=== PATIENT | female | born 1960 | race Caucasian/White ===

== ENCOUNTER 2017-01-07 06:09 | Emergency (ER) | payer OTHER, SELFPAY ==
[2017-01-07] MEDS ORDERED: Sodium Chloride 0.9% 1000 ML 1,000 ML ONE ×2 (06:28→08:29)
[2017-01-07] MEDS ORDERED: Phenergan 25 MG INJ IV ONE (06:34)
[2017-01-07] MEDS ORDERED: Sodium Chloride 0.9% 1000 ML 1,000 ML IV STA ×2 (06:34→08:25)
[2017-01-07] MEDS ORDERED: Hydromorphone 1 mg/ml Ampule IV ONE (06:34)
[2017-01-07] MEDS ORDERED: Hydromorphone 1 mg/ml Ampule ONE (06:38)
[2017-01-07] MEDS ORDERED: Phenergan 25 MG INJ ONE (06:38)
--- NOTE | 2017-01-07 06:41 | ERPHSYRPT ---
- History of Present Illness Historian: patient Exam Limitations: no limitations Hx Tetanus, Diphtheria Vaccination/Date Given: Yes Hx Influenza Vaccination/Date Given: No Hx Pneumococcal Vaccination/Date Given: No <DENY CEVALLOS - Last Filed: 01/07/17 06:49> <KRYSTAL NOEL - Last Filed: 01/07/17 10:00> - History of Present Illness Time Seen by Provider: 01/07/17 06:35 Physician History: FOR THE PAST 14 HOURS PT HAS HAD NAUSEA, VOMITING WITHOUT BLOOD, DIARRHEA WITHOUT BLOOD AND CHILLS; DENIES CHEST PAIN, SHORTNESS OF AIR, RASH. (DENY CEVALLOS) Allergies/Adverse Reactions: No Known Drug Allergies Allergy (Verified 01/07/17 07:05) Home Medications: Glyburide 4 mg PO DAILY 08/22/12 [History] Soma 350 mg PO TID 08/22/12 [History] Albuterol Sulfate [Ventolin Hfa] 18 gm IH DAILY PRN 10/22/14 [History] Levothyroxine Sodium 50 Mcg [Synthroid 50 Mcg] 1 tab DAILY 01/07/17 [ History] Simvastatin 0 mg HS 01/07/17 [History] - Review of Systems Constitutional: Chills Abdominal/Gastrointestinal: Nausea, Vomiting, Diarrhea All Other Systems: Reviewed and Negative <DENY CEVALLOS - Last Filed: 01/07/17 06:49> - Past Medical History Pertinent Past Medical History: Yes Neurological History: No Pertinent History ENT History: No Pertinent History Cardiac History: No Pertinent History Respiratory History: COPD Endocrine Medical History: Diabetes Type II, Hypothyroidism Musculoskeletal History: Osteoarthritis GI Medical History: Gallbladder Disease History: No Pertinent History Psycho-Social History: No Pertinent History Female Reproductive Disorders: Menstrual Problems 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 - Past Surgical History Past Surgical History: Yes Neuro Surgical History: No Pertinent History Cardiac: No Pertinent History Respiratory: No Pertinent History Gastrointestinal: Cholecystectomy Genitourinary: No Pertinent History Musculoskeletal: No Pertinent History Female Surgical History: Lumpectomy, Tubal Ligation Other Surgical History: thermal ablation, left knee scope - Social History Smoking Status: Never smoker Exposure to second hand smoke: No Drug Use: none Patient Lives Alone: No - Female History Hx Now: No <DENY CEVALLOS - Last Filed: 01/07/17 06:49> - Physical Exam General Appearance: alert Eye Exam: PERRL/EOMI Ears, Nose, Throat Exam: TMs normal, dry mucous membranes Neck Exam: normal inspection Respiratory Exam: lungs clear Cardiovascular Exam: normal heart sounds Gastrointestinal/Abdomen Exam: soft, other (B.S. MILDLY HYPERACTIVE AND NORMOTONIC), No tenderness Back Exam: normal range of motion Extremity Exam: normal inspection, No pedal edema Neurologic Exam: alert, cooperative Skin Exam: warm, dry <DENY CEVALLOS EDDAVID - Last Filed: 01/07/17 06:49> - Course Nursing assessment & vital signs reviewed: Yes <DENY CEVALLOS EDDAVID - Last Filed: 01/07/17 06:49> <DENY CEVALLOS HALLIE - Last Filed: 01/07/17 06:49> - Progress Progress: improved Counseled pt/family regarding: lab results, diagnosis, need for follow-up <KRYSTAL NOEL - Last Filed: 01/07/17 10:00> - Progress Progress Note: 01/07/17 08:40 PATIENT HYDRATED ADDITIONAL FLUID BOLUS NORMAL SALINE 1 LITER/HR (KRYSTAL NOEL) <DENY CEVALLOS EDDAVID - Last Filed: 01/07/17 06:49> - Departure Time of Disposition: 09:55 Departure Disposition: Home Critical Care Time: No <KRYSTAL NOEL - Last Filed: 01/07/17 10:00> - Departure Clinical Impression: ACUTE EMESIS AND DIARRHEA, DEHYDRATION Condition: Stable Referrals: ROWAN BYNUM, PURCHASING ASSOCIATE [Primary Care Provider] - Additional Instructions: BEGIN A CLEAR LIQUID DIET FOR 24 HOURS, THEN ADVANCE DIET TO FULL LIQUIDS INCLUDING JUICES, SOUPS, CRACKERS, AND CHEESES. THEN ADVANCE DIET TOLERATED. ZOFRAN 4MG EVERY 4 HOURS FOR NAUSEA AND PHENERGAN 25MG SUPPOSITORY EVERY 4 HOURS NEEDED FOR NAUSEA. CONSULT YOUR FAMILY PHYSICIAN FOR EVALUATION IN 1 WEEK. RETURN TO EMERGENCY FOR PERSISTENT EMESIS OR DIARRHEA. Prescriptions: Ondansetron [Zofran Odt] 4 mg PO Q4H PRN PRN #8 tab.rapdis PRN Reason: Nausea Promethazine HCl 25 mg Supp [Phenergan 25 mg Supp] 25 mg NE Q4H PRN PRN # 10 supp.rect PRN Reason: Nausea
[2017-01-07 06:52] LABS: BASOPHIL % 0.2 % (0.0-0.4); Eosinophil % 1.9 % (0.00-5.0); Mean Cell Volume 83.1 fl (78-100); Mean Corpuscular Hemoglobin 26.8 pg (26-32); Mean Platelet Volume 10.4 fl (6-9.5); Monocytes % 5.9 % (0.0-12.0); Platelet Count 293 K/mm3 (150-450); Red Blood Count 5.08 M/mm3 (4.1-5.4); Red Cell Distribution Width 15.4 % (11.5-14.0); White Blood Count 8.3 K/mm3 (4.0-10.5)
[2017-01-07 07:05] LABS: ALBUMIN 4.2 g/dL (3.4-5.0); ALKALINE PHOSPHATASE 72 U/L (46-116); ANION GAP 17.4 MEQ/L (5-15); BILIRUBIN,TOTAL 0.3 mg/dL (0.2-1.0); BLOOD UREA NITROGEN 20 mg/dL (9-20); CHLORIDE 101 mEq/L (98-107); Carbon Dioxide 22.8 mEq/L (21-32); Glucose 177 MG/DL (70-110); LIPASE 179 U/L (73-393); MAGNESIUM 1.8 mg/dL (1.8-2.4); SGOT/AST 20 U/L (15-37); SGPT/ALT 27 U/L (12-78); SODIUM 137 mEq/L (136-145); Total Protein 7.7 gm/dL (6.4-8.2)
[2017-01-07] MEDS ORDERED: Zofran 4 MG/2 ML VIAL IV ONE (07:06)
[2017-01-07] MEDS ORDERED: Zofran 4 MG/2 ML VIAL ONE (07:12)
[2017-01-07 07:24] LABS: COMPLETE URINE MICROSCOPIC? YES; Collection Type CLEAN CATCH; Ph 7.5 (5-6)
[2017-01-07 07:42] LABS: Bacteria MODERATE /HPF (NEGATIVE); Epithelial Cells FEW /HPF (FEW); Mucus SLIGHT /HPF (NEGATIVE)
[2017-01-07 09:21] VITALS: BP 104/62; PULSE 77; O2SAT 93
== END 2017-01-07 09:57 | disposition home or self-care (01) ==
LOC: ED 06:09
DX: R11.2 Nausea with vomiting, unspecified (principal); R19.7 Diarrhea, unspecified; E86.0 Dehydration; E11.9 Type 2 diabetes mellitus without complications; E03.9 Hypothyroidism, unspecified
CPT/HCPCS: 36000; 36415; 80053; 81000; 82150; 83690; 83735; 85025; 96365; 96366; 96374; 96375; 99284; J1170; J2405; J2550

== ENCOUNTER 2017-01-17 14:54 | Emergency (ER) | payer OTHER, SELFPAY ==
[2017-01-17] MEDS ORDERED: TORAdol 30 mg Injection IM ONE (15:49)
--- NOTE | 2017-01-17 15:55 | ERPHSYRPT ---
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 Triage Nursing Assessment: PT ALERT WARM AND DRY RESP EASY NON LABORED BRUISING NOTED TO LEFT LOWER LEG GOOD PULSES GOOD CAP REFILL NOTED. Physician History: This is a 56-year-old white female she arrives with complaint of pain in her left knee left anterior leg after falling about half an hour prior to arrival patient states she tripped over a tree root and landed on her left knee and left anterior leg she complains of pain in her left knee and leg. She denies any other complaints. Past medical history includes diabetes, hypothyroidism, COPD, gallbladder problems, osteoarthritis, calcium deposits in her lungs. Past surgical history includes lumpectomy, tubal ligation, cervical ablation, left knee scope. Occurred: just prior to arrival Reason for Fall: tripped Injuries/Pain Location: lower extremity (left knee and left leg) Loss of Consciousness: no loss of consciousness Quality: aching Severity of Pain-Max: moderate Severity of Pain-Current: moderate Modifying Factors: Improves With: nothing Associated Symptoms (Fall): extremity injury (left knee and left leg pain), No abdominal pain, No back pain, No confusion, No chest pain, No dizziness, No headache, No lightheadedness, No muscle spasms, No nausea, No neck pain, No ringing in ears, No seizures, No shortness of breath, No slurred speech, No vomiting, No vision changes Allergies/Adverse Reactions: No Known Drug Allergies Allergy (Verified 01/07/17 07:05) Home Medications: Alogliptin Benzoate [Alogliptin] 12.5 mg PO 01/17/17 [History] Carisoprodol 350 mg [Soma 350 mg] 01/17/17 [History] Levothyroxine Sodium 50 Mcg [Synthroid 50 Mcg] 50 mcg 01/17/17 [History] Naproxen 01/17/17 [History] Pioglitazone 30 mg [Actos 30 MG] 30 mg PO 01/17/17 [History] Promethazine HCl 01/17/17 [History] Hx Tetanus, Diphtheria Vaccination/Date Given: Yes Hx Influenza Vaccination/Date Given: No Hx Pneumococcal Vaccination/Date Given: No Immunizations Up to Date: Yes - Review of Systems Constitutional: No Fever, No Chills Eyes: No Symptoms Ears, Nose, & Throat: No Symptoms Respiratory: No Cough, No Dyspnea Cardiac: No Chest Pain, No Edema, No Syncope Abdominal/Gastrointestinal: No Abdominal Pain, No Nausea, No Vomiting, No Diarrhea Genitourinary Symptoms: No Dysuria Musculoskeletal: Other (left knee and left leg pain and swelling) Skin: No Rash Neurological: No Dizziness, No Focal Weakness, No Sensory Changes Psychological: No Symptoms Endocrine: No Symptoms All Other Systems: Reviewed and Negative - Past Medical History Pertinent Past Medical History: Yes Neurological History: No Pertinent History ENT History: No Pertinent History Cardiac History: No Pertinent History Respiratory History: COPD Endocrine Medical History: Diabetes Type II, Hypothyroidism Musculoskeletal History: Osteoarthritis GI Medical History: Gallbladder Disease History: No Pertinent History Psycho-Social History: No Pertinent History Female Reproductive Disorders: Menstrual Problems 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 - Past Surgical History Past Surgical History: Yes Neuro Surgical History: No Pertinent History Cardiac: No Pertinent History Respiratory: No Pertinent History Gastrointestinal: Cholecystectomy Genitourinary: No Pertinent History Musculoskeletal: No Pertinent History Female Surgical History: Lumpectomy, Tubal Ligation Other Surgical History: thermal ablation, left knee scope - Social History Smoking Status: Never smoker Exposure to second hand smoke: No Drug Use: none Patient Lives Alone: No - Female History Hx Last Menstrual Period: ABLASION Hx Now: No - Nursing Vital Signs Nursing Vital Signs: Initial Vital Signs Temperature 98.1 F Temperature Source Oral Pulse Rate 100 Respiratory Rate 18 Blood Pressure [Right Arm] 142/81 Pain Intensity 6 - Louise Coma Score Best Eye Response ([place]): (4) open spontaneously Best Verbal Response ([place]): (5) oriented Best Motor Response ([place]): (6) obeys commands Louise Total: 15 - Physical Exam General Appearance: moderate distress, other (well-developed obese white female pleasant and cooperative to examination) Head Injury: no evidence of injury Eye Exam: PERRL/EOMI ENT Exam: airway nml Neck Exam: normal inspection, No tenderness Respiratory/Chest Exam: normal breath sounds, No chest tenderness, No respiratory distress Cardiovascular Exam: normal heart sounds, regular rate/rhythm Gastrointestinal Exam: soft, No tenderness, No distention, No guarding, No ecchymosis Back Exam: normal inspection, No vertebral tenderness Extremity Exam: other (left knee tender with palpation anteriorly decreased range of motion left knee secondary to pain, left anterior leg with moderate edema anteriorly tender with palpation) Peripheral Pulses: dorsalis-pedis (R): 2+, dorsalis-pedis (L): 2+ Neurologic Exam: alert, oriented x 3, cooperative, sensation nml, No motor deficits Skin Exam: normal color, warm, dry SpO2 Interpretation: normal (98%) SpO2: 98 Oxygen Delivery: Room Air - Radiology Exams Left Knee X-ray Interpretation: Interpreted by me, Negative, No Fracture, No Subluxation Left Lower Leg X-ray Interpretation: Interpreted by me, Negative, No Fracture, No Subluxation Ordered Tests: Active Orders 24 hr Category Date Time Status [place] Bandage Application [facility] STAT Care 01/17/17 16:41 Ordered Crutches STAT Care 01/17/17 16:41 Ordered Immobilizer STAT Care 01/17/17 16:41 Ordered Wound Care STAT Care 01/17/17 16:41 Ordered KNEE (MIN 4 VIEW) Stat Exams 01/17/17 15:49 Taken LOWER LEG Stat Exams 01/17/17 15:50 Taken Medication Summary Discontinued Medications Generic Name Dose Route Start Last Admin Trade Name Marielle PRN Reason Stop Dose Admin Ketorolac Tromethamine 60 mg 01/17/17 15:49 01/17/17 16:27 Toradol 30 Mg Injection IM 01/17/17 15:50 60 mg STAT ONE Administration Ketorolac Tromethamine Confirm 01/17/17 16:25 Toradol 30 Mg Injection Administered 01/17/17 16:26 Dose 60 mg .ROUTE .[employer]-MED ONE - Progress Progress: improved Progress Note: 01/17/17 16:42 X-ray patient's left knee negative fracture negative dislocation. X-ray patient's left lower leg negative fracture negative dislocation. Left knee is stable to anterior drawer, posterior drawer, medial collateral ligament stress, lateral collateral ligament stress. Left DP PT popliteal pulses all 2 over 4. Sensation intact to all toes good capillary refill to all toes. Will have nurse clean abrasion left anterior leg apply bacitracin dressing and dressing [place] wrap left knee immobilizer place patient on crutches. Home with [place] for pain. - Departure Time of Disposition: 16:43 Departure Disposition: Home Clinical Impression: Accidental fall Qualifiers: Encounter type: initial encounter Qualified Code(s): W19.XXXA - Unspecified fall, initial encounter Contusion of left knee Qualifiers: Encounter type: initial encounter Qualified Code(s): S80.02XA - Contusion of left knee, initial encounter Contusion of left leg Qualifiers: Encounter type: initial encounter Qualified Code(s): S80.12XA - Contusion of left lower leg, initial encounter Condition: Fair Critical Care Time: No Additional Instructions: Return home. Ice and elevate left leg, left knee 24-48 hours. Crutches weightbearing as tolerated. [place] 5/325 #15 one orally every 4-6 hours as needed for pain. Follow-up with your family doctor if symptoms are worse, no better in 48 hours, or persist longer than one week. Return for acute distress or for severe symptoms. Prescriptions: Hydrocodone Bit/Acetaminophen [[place] 5/325Mg] 1 tab PO Q4-6HPRN PRN #15 tablet PRN Reason: Pain
[2017-01-17] MEDS ORDERED: TORAdol 30 mg Injection ONE (16:25)
[2017-01-17] MEDS ORDERED: BACIGUENT PACKET TP ONE (16:41)
[2017-01-17] MEDS ORDERED: BACIGUENT PACKET ONE (16:48)
[2017-01-17 17:18] VITALS: BP 144/87; PULSE 90; O2SAT 96
--- NOTE | 2017-01-17 17:23 | XRAY ---
Indication: Pain and bruising following fall. Comparison: None 4 views of the left knee demonstrates proximal pretibial soft tissue swelling without fracture or dislocation. Minimal medial compartment joint space narrowing/spurring. No other bony, articular, or soft tissue abnormalities.
--- NOTE | 2017-01-17 17:26 | XRAY ---
Indication: Pain and bruising following fall. Comparison: None 2 views of the left lower leg demonstrates proximal anterior soft tissue swelling without fracture or dislocation. Incidental small plantar heel spur and tiny ossifications adjacent to the tip of lateral malleolus either degenerative versus old injury.
== END 2017-01-17 17:16 | disposition home or self-care (01) ==
LOC: ED 14:54
DX: S80.02XA Contusion of left knee, initial encounter (principal); S80.12XA Contusion of left lower leg, initial encounter; W01.0XXA Fall on same level from slipping, tripping and stumbling without subsequent striking against object, initial encounter
CPT/HCPCS: 73564; 73590; 99283; 99284; J1885; L1830; A9270-GY

== ENCOUNTER 2017-08-11 23:25 | Emergency (ER) | payer OTHER, SELFPAY ==
[2017-08-11] MEDS ORDERED: Zofran 4 MG/2 ML VIAL IV ONE (23:35)
[2017-08-11] MEDS ORDERED: TORAdol 30 mg Injection IV ONE (23:35)
[2017-08-11] MEDS ORDERED: Norflex 60 MG/2 ML IM ONE (23:35)
[2017-08-11] MEDS ORDERED: Sodium Chloride 0.9% 1000 ML 1,000 ML IV SCH (23:45)
[2017-08-11] MEDS ORDERED: Norflex 60 MG/2 ML ONE (23:50)
[2017-08-11] MEDS ORDERED: TORAdol 30 mg Injection ONE (23:50)
[2017-08-11] MEDS ORDERED: Sodium Chloride 0.9% 1000 ML 1,000 ML ONE (23:50)
[2017-08-11] MEDS ORDERED: Zofran 4 MG/2 ML VIAL ONE (23:50)
[2017-08-11 23:54] LABS: BASOPHIL % 0.8 % (0.0-0.4); Eosinophil % 3.3 % (0.00-5.0); Granulocytes % 59.6 % (36.0-66.0); Mean Cell Volume 84.2 fl (78-100); Mean Corpuscular Hemoglobin 27.1 pg (26-32); Mean Platelet Volume 10.5 fl (6-9.5); Monocytes % 7.3 % (0.0-12.0); Platelet Count 241 K/mm3 (150-450); Red Blood Count 4.68 M/mm3 (4.1-5.4); Red Cell Distribution Width 15.1 % (11.5-14.0); White Blood Count 6.4 K/mm3 (4.0-10.5)
--- NOTE | 2017-08-11 23:59 | ERPHSYRPT ---
- History of Present Illness Time Seen by Provider: 08/11/17 23:57 Source: patient, family Exam Limitations: no limitations Patient Subjective Stated Complaint: pt states that while at work tonight she bent down and felt her back catch. states that back has been hurting since. states pain is lower lt back and wraps around to lt groin and to lt buttock. Triage Nursing Assessment: pt awake and alert, answers questions approp. pt ambulatory with limping gait noted. respirations nonlabored with lungs cta. tenderness to light palpation noted to lt lower back. Physician History: pt states that while at work tonight she bent down and felt her back catch. states that back has been hurting since. states pain is lower lt back and wraps around to lt groin and to lt buttock. Timing/Duration: today Method of Injury: bending Quality: aching Back Pain Location: lumbar spine Back Pain Radiation: lower legs Severity of Pain-Max: moderate Severity of Pain-Current: severe Modifying Factors: Improves With: nothing Allergies/Adverse Reactions: No Known Drug Allergies Allergy (Verified 08/11/17 23:41) Home Medications: Alogliptin Benzoate [Alogliptin] 12.5 mg PO DAILY 01/17/17 [History] Carisoprodol 350 mg [Soma 350 mg] 1 tab PO Q8H PRN PRN 01/17/17 [History] Levothyroxine Sodium 50 Mcg [Synthroid 50 Mcg] 50 mcg DAILY 01/17/17 [ History] Naproxen 1 tab PO BID PRN 01/17/17 [History] Pioglitazone 30 mg [Actos 30 MG] 30 mg PO BID 01/17/17 [History] Promethazine HCl 1 tab PO Q8H PRN PRN 01/17/17 [History] Hx Tetanus, Diphtheria Vaccination/Date Given: Yes Hx Influenza Vaccination/Date Given: Yes (2016) Hx Pneumococcal Vaccination/Date Given: No Immunizations Up to Date: Yes - Review of Systems Constitutional: No Symptoms Genitourinary Symptoms: No Symptoms Musculoskeletal: Back Pain, Joint Pain Skin: No Symptoms Neurological: No Symptoms Psychological: No Symptoms - Past Medical History Pertinent Past Medical History: Yes Neurological History: No Pertinent History ENT History: No Pertinent History Cardiac History: No Pertinent History Respiratory History: Asthma, COPD Endocrine Medical History: Diabetes Type II, Hypothyroidism Musculoskeletal History: Arthritis, Osteoarthritis GI Medical History: Gallbladder Disease History: No Pertinent History Psycho-Social History: No Pertinent History Female Reproductive Disorders: Menstrual Problems 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 - Past Surgical History Past Surgical History: Yes Neuro Surgical History: No Pertinent History Cardiac: No Pertinent History Respiratory: No Pertinent History Gastrointestinal: Cholecystectomy Genitourinary: No Pertinent History Musculoskeletal: Orthopedic Surgery Female Surgical History: Lumpectomy, Tubal Ligation Other Surgical History: thermal ablation, left knee scope - Social History Smoking Status: Never smoker Exposure to second hand smoke: No Drug Use: none Patient Lives Alone: No - Female History Hx Now: No - Nursing Vital Signs Nursing Vital Signs: Initial Vital Signs Temperature 97.8 F 08/11/17 23:32 Respiratory Rate 18 08/11/17 23:32 Blood Pressure 148/88 08/11/17 23:32 Pain Scale Pain Intensity [] 9 Pain Intensity 9 - Physical Exam General Appearance: no apparent distress Eye Exam: PERRL/EOMI Ears, Nose, Throat Exam: normal ENT inspection Neck Exam: normal inspection Respiratory Exam: normal breath sounds Cardiovascular Exam: regular rate/rhythm Gastrointestinal Exam: soft Back Exam: decreased range of motion, muscle spasm, No CVA tenderness, No vertebral tenderness, No point tenderness Oxygen Delivery: Room Air - Radiology Exams L-Spine X-ray Interpretation: Reviewed by me, Negative, No Fracture Ordered Tests: Active Orders 24 hr Category Date Time Status LUMBAR LIMITED (2 OR 3 VIEWS) Stat Exams 08/11/17 23:36 Ordered CBC W DIFF Stat Lab 08/11/17 23:50 Completed CMP Stat Lab 08/11/17 23:50 Completed UA W/ MICROSCOPIC Stat Lab 08/11/17 00:12 Completed Medication Summary Generic Name Dose Route Start Last Admin Trade Name Freq PRN Reason Stop Dose Admin Sodium Chloride 1,000 mls @ 50 mls/hr 08/11/17 23:45 08/11/17 23:58 Sodium Chloride 0.9% 1000 Ml IV 09/10/17 23:44 50 mls/hr .Q20H VIC Administration Discontinued Medications Generic Name Dose Route Start Last Admin Trade Name Freq PRN Reason Stop Dose Admin Ketorolac Tromethamine 30 mg 08/11/17 23:35 08/11/17 23:59 Toradol 30 Mg Injection IV 08/11/17 23:36 30 mg STAT ONE Administration Ketorolac Tromethamine Confirm 08/11/17 23:50 Toradol 30 Mg Injection Administered 08/11/17 23:51 Dose 30 mg .ROUTE .STK-MED ONE Ondansetron HCl 4 mg 08/11/17 23:35 08/11/17 23:59 Zofran 4 Mg/2 Ml Vial IV 08/11/17 23:36 4 mg STAT ONE Administration Ondansetron HCl Confirm 08/11/17 23:50 Zofran 4 Mg/2 Ml Vial Administered 08/11/17 23:51 Dose 4 mg .ROUTE .STK-MED ONE Orphenadrine Citrate 60 mg 08/11/17 23:35 08/11/17 23:56 Norflex 60 Mg/2 Ml IM 08/11/17 23:36 60 mg STAT ONE Administration Orphenadrine Citrate Confirm 08/11/17 23:50 Norflex 60 Mg/2 Ml Administered 08/11/17 23:51 Dose 60 mg .ROUTE .STK-MED ONE Lab/Rad Data: Laboratory Result Diagrams 08/11/17 23:50 08/11/17 23:50 Laboratory Results 08/11/17 08/11/17 08/11/17 Range/Units 23:50 23:50 00:12 WBC 6.4 (4.0-10.5) K/mm3 RBC 4.68 (4.1-5.4) M/mm3 Hgb 12.7 (12.0-16.0) gm/dl Hct 39.4 (35-47) % MCV 84.2 (78-100) fl MCH 27.1 (26-32) pg MCHC 32.2 (32-36) g/dl RDW 15.1 H (11.5-14.0) % Plt Count 241 (150-450) K/mm3 MPV 10.5 H (6-9.5) fl Gran % 59.6 (36.0-66.0) % Lymphocytes % 29.0 (24.0-44.0) % Monocytes % 7.3 (0.0-12.0) % Eosinophils % 3.3 (0.00-5.0) % Basophils % 0.8 (0.0-0.4) % Basophils # 0.05 (0-0.4) Sodium 140 (136-145) mEq/L Potassium 4.1 (3.5-5.1) mEq/L Chloride 102 (98-107) mEq/L Carbon Dioxide 26.1 (21-32) mEq/L Anion Gap 15.9 H (5-15) MEQ/L BUN 17 (9-20) mg/dL Creatinine 0.75 (0.55-1.30) mg/dl Estimated GFR > 60 ML/MIN Glucose 111 H (70-110) MG/DL Calcium 9.5 (8.5-10.1) mg/dL Total Bilirubin 0.20 (0.2-1.0) mg/dL AST 16 (15-37) U/L ALT 25 (12-78) U/L Alkaline Phosphatase 68 (46-116) U/L Serum Total Protein 7.7 (6.4-8.2) gm/dL Albumin 4.1 (3.4-5.0) g/dL Ur Collection Type VOID Urine Color YELLOW (YELLOW) Urine Appearance CLEAR (CLEAR) Urine pH 6.0 (5-6) Ur Specific Dow 1.020 (1.005-1.025) Urine Protein NEGATIVE (Negative) Urine Ketones NEGATIVE (NEGATIVE) Urine Blood NEGATIVE (0-5) Keith/ul Urine Nitrite NEGATIVE (NEGATIVE) Urine Bilirubin NEGATIVE (NEGATIVE) Urine Urobilinogen NORMAL (0-1) mg/dL Ur Leukocyte Esterase TRACE (NEGATIVE) Urine Microscopic RBC 2-5 (0-2) /HPF Urine Microscopic WBC 0-2 (0-5) /HPF Ur Epithelial Cells FEW (FEW) /HPF Urine Bacteria FEW (NEGATIVE) /HPF Urine Mucus SLIGHT (NEGATIVE) /HPF Urine Culture Reflexed NO (NO) Urine Glucose NEGATIVE (NEGATIVE) mg/dL Specimen Received 08/12/17 0015 - Progress Progress: improved, pain not gone completely Counseled pt/family regarding: lab results, diagnosis, need for follow-up, rad results - Departure Time of Disposition: 00:40 Departure Disposition: Home Clinical Impression: Sciatica neuralgia Qualifiers: Laterality: left Qualified Code(s): M54.32 - Sciatica, left side Condition: Stable Critical Care Time: No Referrals: ANDREA GREENE MD [Primary Care Provider] - Instructions: Back Pain With Sciatica Additional Instructions: BACK INJURY 1. May apply moist heat frequently for relief of pain. Take care not to burn the skin. Do not use heat for more than 30 minutes at a time. 2. Try to sleep on a firm bed, flat on your back. 3. If no improvement is noticed in 2-3 days, follow up with your family physician. 4. If you notice any numbness, tingling, weakness, or problems with your bowel or bladder, you should call your family physician or return to the emergency department. Please follow the instructions given to you. Please take your medication as prescribed if given. If symptoms recur or get worse, come back to the emergency room if you cannot reach your primary care physician, or call your primary care physician for an appointment. Again if your symptoms get worse, come back to the emergency room. Thanks for visiting emergency room, and let us take care of you. Forms: Work/School Release Form Prescriptions: Cyclobenzaprine HCl 10 mg [Flexeril 10 MG] 10 mg PO TID #20 tablet Naproxen 375 mg [Naprosyn 375 mg] 375 mg PO Q8H #20 tablet
[2017-08-12 00:20] LABS: ALBUMIN 4.1 g/dL (3.4-5.0); ALKALINE PHOSPHATASE 68 U/L (46-116); ANION GAP 15.9 MEQ/L (5-15); BLOOD UREA NITROGEN 17 mg/dL (9-20); CHLORIDE 102 mEq/L (98-107); Carbon Dioxide 26.1 mEq/L (21-32); Glucose 111 MG/DL (70-110); Potassium 4.1 mEq/L (3.5-5.1); SGOT/AST 16 U/L (15-37); SGPT/ALT 25 U/L (12-78); SODIUM 140 mEq/L (136-145); Total Protein 7.7 gm/dL (6.4-8.2)
[2017-08-12 00:27] LABS: Bilirubin NEGATIVE (NEGATIVE); Blood NEGATIVE Ery/ul (0-5); COMPLETE URINE MICROSCOPIC? YES; Collection Type VOID; Glucose NEGATIVE (NEGATIVE); Leukocyte Esterase TRACE (NEGATIVE)
[2017-08-12 00:28] LABS: ADD URINE CULTURE? NO (NO); Bacteria FEW /HPF (NEGATIVE); Epithelial Cells FEW /HPF (FEW); Mucus SLIGHT /HPF (NEGATIVE); WBC 0-2 /HPF (0-5)
[2017-08-12 01:29] VITALS: BP 116/67; PULSE 78; O2SAT 97
--- NOTE | 2017-08-12 07:47 | XRAY ---
Indication: Left-sided low back pain. Comparison: August 15, 2016. 3 views of the lumbar spine unchanged again demonstrating mild osteopenia, mild multilevel degenerative spondylosis, and mild aortic calcifications. No new/acute findings.
== END 2017-08-12 01:15 | disposition home or self-care (01) ==
LOC: ED 23:25
DX: M54.32 Sciatica, left side (principal); X50.0XXA Overexertion from strenuous movement or load, initial encounter; Y92.239 Unspecified place in hospital as the place of occurrence of the external cause; Y99.0 Civilian activity done for income or pay
CPT/HCPCS: 36000; 36415; 72100; 80053; 81000; 85025; 96360; 96372; 96374; 96375; 99284; J1885; J2360; J2405

== ENCOUNTER 2017-08-27 16:10 | Observation (INO) | payer OTHER ==
[2017-08-27] MEDS ORDERED: Sodium Chloride 0.9% 1000 ML 1,000 ML ONE (16:29)
[2017-08-27] MEDS ORDERED: Sodium Chloride 0.9% 1000 ML 1,000 ML IV SCH ×2 (16:30→17:30)
[2017-08-27] MEDS ORDERED: NovoLOG Insulin SQ PRN (16:31)
[2017-08-27 16:40] LABS: BASOPHIL % 0.2 % (0.0-0.4); Eosinophil % 1.3 % (0.00-5.0); Granulocytes % 62.5 % (36.0-66.0); Lymphocytes % 24.9 % (24.0-44.0); Mean Cell Volume 82.9 fl (78-100); Mean Corpuscular Hemoglobin 26.8 pg (26-32); Mean Platelet Volume 11.1 fl (6-9.5); Monocytes % 11.1 % (0.0-12.0); Platelet Count 255 K/mm3 (150-450); Red Blood Count 5.26 M/mm3 (4.1-5.4); Red Cell Distribution Width 15.3 % (11.5-14.0); White Blood Count 5.9 K/mm3 (4.0-10.5)
[2017-08-27 16:54] LABS: ALBUMIN 4.1 g/dL (3.4-5.0); ALKALINE PHOSPHATASE 64 U/L (46-116); ANION GAP 17.4 MEQ/L (5-15); BLOOD UREA NITROGEN 15 mg/dL (9-20); CHLORIDE 106 mEq/L (98-107); Carbon Dioxide 22.9 mEq/L (21-32); Glucose 90 MG/DL (70-110); Potassium 3.6 mEq/L (3.5-5.1); SGOT/AST 19 U/L (15-37); SGPT/ALT 22 U/L (12-78); SODIUM 143 mEq/L (136-145); Total Protein 7.8 gm/dL (6.4-8.2)
--- NOTE | 2017-08-27 17:29 | PCM.HP ---
History of Present Illness - Chief Complaint Chief Complaint: dehydration,vomiting, diarrhea History of Present Illness: is a 57 year old female who has had bouts of severe nausea, vomiting and diarrhea over the past month. She has had persistent nausea, vomiting and diarrhea for the last 2 days. She denies abd pain or fever, no recent antibiotic usage. - Review of Systems Constitutional: Weakness, No Fever, No Chills Respiratory: No Cough, No Short Of Breath Cardiac: No Chest Pain, No Edema, No Syncope Abdominal/Gastrointestinal: Nausea, Vomiting, Diarrhea Genitourinary Symptoms: No Dysuria Skin: No Rash All Other Systems: Reviewed and Negative Medications & Allergies Home Medications: Home Medication List Alogliptin Benzoate [Alogliptin] 12.5 mg PO DAILY 01/17/17 [History Confirmed ] Carisoprodol 350 mg [Soma 350 mg] 1 tab PO Q8H PRN PRN 01/17/17 [History Confirmed 08/11/17] Hydrocodone Bit/Acetaminophen [[place] 5/325Mg] 1 tab PO Q4-6HPRN PRN #15 tablet 01/17/17 [Rx Confirmed 08/11/17] Levothyroxine Sodium 50 Mcg [Synthroid 50 Mcg] 50 mcg DAILY 01/17/17 [ History Confirmed 08/11/17] Naproxen 1 tab PO BID PRN 01/17/17 [History Confirmed 08/11/17] Pioglitazone 30 mg [Actos 30 MG] 30 mg PO BID 01/17/17 [History Confirmed 08/11/17] Promethazine HCl 1 tab PO Q8H PRN PRN 01/17/17 [History Confirmed 08/11/17] Cyclobenzaprine HCl 10 mg [Flexeril 10 MG] 10 mg PO TID #20 tablet 08/12/17 [ Rx] Naproxen 375 mg [Naprosyn 375 mg] 375 mg PO Q8H #20 tablet 08/12/17 [Rx] Allergies/Adverse Reactions: Allergies Allergy/AdvReac Type Severity Reaction Status Date / Time No Known Drug Allergies Allergy Verified 08/11/17 23:41 - Past Medical History Past Medical History: Yes Neurological History: No Pertinent History ENT History: No Pertinent History Cardiac History: No Pertinent History Respiratory History: Asthma, COPD Endocrine Medical History: Diabetes Type II, Hypothyroidism Musculoskelatal History: Arthritis, Osteoarthritis GI Medical History: Gallbladder Disease History: No Pertinent History Pyscho-Social History: No Pertinent History Reproductive Disorders: Menstrual Problems Comment: 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 - Female History Are you now?: No - Past Surgical History Past Surgical History: Yes Neuro Surgical History: No Pertinent History Cardiac History: No Pertinent History Respiratory Surgery: No Pertinent History GI Surgical History: Cholecystectomy Genitourinary Surgical Hx: No Pertinent History Musculskeletal Surgical Hx: Orthopedic Surgery Female Surgical History: Lumpectomy, Tubal Ligation Other Surgical History: thermal ablation, left knee scope - Social History Smoking Status: Never smoker Exposure to second hand smoke: No Alcohol: None Drug Use: none - Physical Exam Vital Signs: Vital Signs - 24 hr Temp Pulse Resp BP Pulse Ox 08/27/17 17:06 98.3 F 96 H 18 146/73 99 08/27/17 16:28 98.3 F 96 H 18 146/73 99 08/27/17 16:00 98.3 F 96 H 146/73 General Appearance: mild distress Neurologic Exam: alert, oriented x 3 Eye Exam: PERRL/EOMI, eyes nml inspection Respiratory Exam: normal breath sounds, lungs clear, No respiratory distress Cardiovascular Exam: regular rate/rhythm, normal heart sounds, normal peripheral pulses Gastrointestinal/Abdomen Exam: soft, normal bowel sounds, No tenderness, No mass Extremity Exam: normal inspection, normal range of motion, pelvis stable Skin Exam: normal color, warm, dry, No rash Results - Labs Lab/Micro Results: Lab Results-Last 24 Hours 08/27/17 08/27/17 Range/Units 16:10 16:10 WBC 5.9 (4.0-10.5) K/mm3 RBC 5.26 (4.1-5.4) M/mm3 Hgb 14.1 (12.0-16.0) gm/dl Hct 43.6 (35-47) % MCV 82.9 (78-100) fl MCH 26.8 (26-32) pg MCHC 32.3 (32-36) g/dl RDW 15.3 H (11.5-14.0) % Plt Count 255 (150-450) K/mm3 MPV 11.1 H (6-9.5) fl Gran % 62.5 (36.0-66.0) % Lymphocytes % 24.9 (24.0-44.0) % Monocytes % 11.1 (0.0-12.0) % Eosinophils % 1.3 (0.00-5.0) % Basophils % 0.2 (0.0-0.4) % Basophils # 0.01 (0-0.4) Sodium 143 (136-145) mEq/L Potassium 3.6 (3.5-5.1) mEq/L Chloride 106 (98-107) mEq/L Carbon Dioxide 22.9 (21-32) mEq/L Anion Gap 17.4 H (5-15) MEQ/L BUN 15 (9-20) mg/dL Creatinine 0.65 (0.55-1.30) mg/dl Estimated GFR > 60 ML/MIN Glucose 90 (70-110) MG/DL Calcium 9.2 (8.5-10.1) mg/dL Total Bilirubin 0.30 (0.2-1.0) mg/dL AST 19 (15-37) U/L ALT 22 (12-78) U/L Alkaline Phosphatase 64 (46-116) U/L Serum Total Protein 7.8 (6.4-8.2) gm/dL Albumin 4.1 (3.4-5.0) g/dL - Radiology Impressions Radiology Exams & Impressions: Radiology Procedures Category Date Time Status ABDOMEN AND PELVIS W/0 CONTRAS [CT] Routine Exams 08/27/17 16:34 Taken Assessment/Plan (1) Nausea & vomiting Current Visit: Yes Status: Acute Assessment & Plan: continue zofran, IV fluids. check ct scan to r/o cbd stone or other pathology Code(s): R11.2 - NAUSEA WITH VOMITING, UNSPECIFIED (2) Diarrhea Current Visit: Yes Status: Acute Assessment & Plan: check stool studies Code(s): R19.7 - DIARRHEA, UNSPECIFIED (3) Dehydration Current Visit: Yes Status: Acute Code(s): E86.0 - DEHYDRATION (4) Diabetes mellitus Current Visit: No Status: Acute Code(s): E11.9 - TYPE 2 DIABETES MELLITUS WITHOUT COMPLICATIONS
[2017-08-27] MEDS: Sodium Chloride 0.9% W/ 20 mEq KCl/LITER 1,000 ML IV SCH (17:39)
[2017-08-27] MEDS: Zofran 4 MG/2 ML VIAL IV PRN ×2 (17:42→23:47)
[2017-08-27 17:48] LABS: LIPASE 125 U/L (73-393)
[2017-08-27] MEDS: TYLENOL 325 MG PO PRN (20:06)
[2017-08-27 23:44] LABS: Collection Type CCMS; Leukocyte Esterase 1+ (NEGATIVE)
[2017-08-27 23:45] LABS: Bacteria RARE /HPF (NEGATIVE); Bilirubin NEGATIVE (NEGATIVE); Blood NEGATIVE Ery/ul (0-5); COMPLETE URINE MICROSCOPIC? YES; Epithelial Cells RARE /HPF (FEW); Glucose NEGATIVE (NEGATIVE); Mucus MODERATE /HPF (NEGATIVE)
[2017-08-28] MEDS: Sodium Chloride 0.9% W/ 20 mEq KCl/LITER 1,000 ML IV SCH ×3 (00:55→17:40)
[2017-08-28 05:47] LABS: BASOPHIL % 0.5 % (0.0-0.4); Eosinophil % 2.7 % (0.00-5.0); Granulocytes % 54.8 % (36.0-66.0); Lymphocytes % 33.4 % (24.0-44.0); Mean Cell Volume 84.2 fl (78-100); Mean Corpuscular Hemoglobin 26.7 pg (26-32); Mean Platelet Volume 10.3 fl (6-9.5); Monocytes % 8.6 % (0.0-12.0); Platelet Count 211 K/mm3 (150-450); Red Blood Count 4.23 M/mm3 (4.1-5.4); Red Cell Distribution Width 14.9 % (11.5-14.0); White Blood Count 4.4 K/mm3 (4.0-10.5)
[2017-08-28 06:25] LABS: ALKALINE PHOSPHATASE 43 U/L (46-116); ANION GAP 10.2 MEQ/L (5-15); BLOOD UREA NITROGEN 11 mg/dL (9-20); CHLORIDE 111 mEq/L (98-107); Carbon Dioxide 27.1 mEq/L (21-32); Glucose 81 MG/DL (70-110); Potassium 3.4 mEq/L (3.5-5.1); SGOT/AST 5 U/L (15-37); SGPT/ALT 13 U/L (12-78); SODIUM 145 mEq/L (136-145); Total Protein 6.1 gm/dL (6.4-8.2)
[2017-08-28] MEDS: SYNTHROID 50 MCG PO SCH (08:22)
--- NOTE | 2017-08-28 08:47 | XRAY ---
Indication: Abdominal pain, nausea, vomiting, and weight loss. Multiple contiguous axial images obtained through the abdomen and pelvis without contrast as ordered. Comparison: July 14, 2011. Lung bases again demonstrates minimal bibasilar dependent atelectasis. Stable small focus of scarring in the posterior right lower lobe. Heart is not enlarged. Noncontrasted stomach and bowel loops appear nonobstructed. Normal appendix. No free fluid/air. Again fatty hepatomegaly and cholecystectomy. Spleen remains enlarged today measuring 13.6 cm in greatest axial dimension and again demonstrates a few small cysts unchanged. Stable small left renal exophytic cyst. Remaining liver, pancreas, spleen, adrenal glands, kidneys, ureters, bladder, and uterus appear unremarkable for noncontrast exam. Mild aortoiliac calcifications without AAA. Osseous structures intact with minimal degenerative changes throughout the spine. Impression: 1. Again fatty hepatomegaly, splenomegaly, splenic cysts, and left renal cyst. 2. No new or acute intra-abdominal/pelvic abnormalities on this noncontrast exam. Comment: Preliminary interpretation was made by [facility]. No critical discrepancy. CT DI 23.47
[2017-08-28] MEDS: ROCEPHIN 1 Gm-D5w 50 ml Bag** 1 G/50 ML IVPB IV SCH (09:49)
[2017-08-28] MEDS: TYLENOL 325 MG PO PRN (09:54)
[2017-08-28] MEDS ORDERED: PROMETHAZINE HCL PO PRN (10:16)
[2017-08-28] MEDS ORDERED: NORCO 5/325 MG PO PRN (10:16)
[2017-08-28] MEDS ORDERED: PHENERGAN 25 MG PO PRN (10:20)
[2017-08-28] MEDS ORDERED: SOMA 350 MG PO PRN (15:00)
[2017-08-28] MEDS ORDERED: Golytely Solution 4000 ML PO ONE (15:00)
--- NOTE | 2017-08-28 15:23 | PCM.NOTE ---
Date and Time: 08/28/17 1517 Subjective Assessment: She continues to have some nausea. Has been having lower abdominal pressure particularly right after she urinates. Has had this before with UTIs. Is very stressed, especially about work, anxious and depressed. Took lexapro in the past and it helped. C. diff neg. Objective Exam General Appearance: no apparent distress, alert, obese Neurologic Exam: oriented x 3, cooperative Skin Exam: normal color, warm, dry Neck Exam: normal inspection, non-tender, No lymphadenopathy Respiratory Exam: normal breath sounds, lungs clear, No crackles/rales, No rhonchi, No wheezing Gastrointestinal/Abdomen Exam: soft, normal bowel sounds, No tenderness, No distention, No mass, No guarding, No rebound Extremity Exam: No pedal edema, No swelling Back Exam: normal inspection, No CVA tenderness OBJECTIVE DATA Vital Signs: Vital Signs - 24 hr Temp Pulse Resp BP Pulse Ox 08/28/17 11:15 99.1 F 81 20 132/76 92 L 08/28/17 08:00 97.2 F 67 20 121/67 98 08/28/17 03:37 97.5 F 88 18 134/79 97 08/28/17 00:00 97.7 F 81 18 137/74 96 08/27/17 19:35 98.4 F 71 18 140/79 97 08/27/17 17:06 98.3 F 96 H 18 146/73 99 08/27/17 16:28 98.3 F 96 H 18 146/73 99 08/27/17 16:00 98.3 F 96 H 146/73 Pain Assessment - Last Documented Pain Intensity 4 Pain Scale Used 0-10 Pain Scale Intake and Output: Intake & Output 08/26/17 08/27/17 08/28/17 08/29/17 11:59 11:59 11:59 11:59 Intake Total 1469 960 Output Total 400 Balance 1069 960 Weight 108.091 kg Lab Results: Accuchecks Date 08/27/17 Accucheck Value: 75 Lab Results-Last 24 Hours 08/27/17 08/27/17 08/27/17 Range/Units 16:10 16:10 16:10 WBC 5.9 (4.0-10.5) K/mm3 RBC 5.26 (4.1-5.4) M/mm3 Hgb 14.1 (12.0-16.0) gm/dl Hct 43.6 (35-47) % MCV 82.9 (78-100) fl MCH 26.8 (26-32) pg MCHC 32.3 (32-36) g/dl RDW 15.3 H (11.5-14.0) % Plt Count 255 (150-450) K/mm3 MPV 11.1 H (6-9.5) fl Gran % 62.5 (36.0-66.0) % Lymphocytes % 24.9 (24.0-44.0) % Monocytes % 11.1 (0.0-12.0) % Eosinophils % 1.3 (0.00-5.0) % Basophils % 0.2 (0.0-0.4) % Basophils # 0.01 (0-0.4) Sodium 143 (136-145) mEq/L Potassium 3.6 (3.5-5.1) mEq/L Chloride 106 (98-107) mEq/L Carbon Dioxide 22.9 (21-32) mEq/L Anion Gap 17.4 H (5-15) MEQ/L BUN 15 (9-20) mg/dL Creatinine 0.65 (0.55-1.30) mg/dl Estimated GFR > 60 ML/MIN Glucose 90 (70-110) MG/DL Hemoglobin A1c (4.5-6.2) Calcium 9.2 (8.5-10.1) mg/dL Total Bilirubin 0.30 (0.2-1.0) mg/dL AST 19 (15-37) U/L ALT 22 (12-78) U/L Alkaline Phosphatase 64 (46-116) U/L Serum Total Protein 7.8 (6.4-8.2) gm/dL Albumin 4.1 (3.4-5.0) g/dL Amylase 33 (25-115) U/L Lipase 125 (73-393) U/L TSH 3rd Generation (0.358-3.740) mIU/L Ur Collection Type Urine Color (YELLOW) Urine Appearance (CLEAR) Urine pH (5-6) Ur Specific [place] (1.005-1.025) Urine Protein (Negative) Urine Ketones (NEGATIVE) Urine Blood (0-5) Keith/ul Urine Nitrite (NEGATIVE) Urine Bilirubin (NEGATIVE) Urine Urobilinogen (0-1) mg/dL Ur Leukocyte Esterase (NEGATIVE) Urine Microscopic WBC (0-5) /HPF Ur Epithelial Cells (FEW) /HPF Urine Bacteria (NEGATIVE) /HPF Urine Mucus (NEGATIVE) /HPF Urine Glucose (NEGATIVE) mg/dL Stl C. diff Tox B Gene (NEGATIVE) C.difficile 027-NAP1-B1 (NEGATIVE) Specimen Received 08/27/17 08/27/17 08/28/17 Range/Units 16:10 23:20 05:00 WBC (4.0-10.5) K/mm3 RBC (4.1-5.4) M/mm3 Hgb (12.0-16.0) gm/dl Hct (35-47) % MCV (78-100) fl MCH (26-32) pg MCHC (32-36) g/dl RDW (11.5-14.0) % Plt Count (150-450) K/mm3 MPV (6-9.5) fl Gran % (36.0-66.0) % Lymphocytes % (24.0-44.0) % Monocytes % (0.0-12.0) % Eosinophils % (0.00-5.0) % Basophils % (0.0-0.4) % Basophils # (0-0.4) Sodium (136-145) mEq/L Potassium (3.5-5.1) mEq/L Chloride (98-107) mEq/L Carbon Dioxide (21-32) mEq/L Anion Gap (5-15) MEQ/L BUN (9-20) mg/dL Creatinine (0.55-1.30) mg/dl Estimated GFR ML/MIN Glucose (70-110) MG/DL Hemoglobin A1c 6.2 (4.5-6.2) Calcium (8.5-10.1) mg/dL Total Bilirubin (0.2-1.0) mg/dL AST (15-37) U/L ALT (12-78) U/L Alkaline Phosphatase (46-116) U/L Serum Total Protein (6.4-8.2) gm/dL Albumin (3.4-5.0) g/dL Amylase (25-115) U/L Lipase (73-393) U/L TSH 3rd Generation 1.587 (0.358-3.740) mIU/L Ur Collection Type CCMS Urine Color YELLOW (YELLOW) Urine Appearance SLIGHTLY CLOUDY (CLEAR) Urine pH 5.0 (5-6) Ur Specific [place] 1.025 (1.005-1.025) Urine Protein NEGATIVE (Negative) Urine Ketones MODERATE (NEGATIVE) Urine Blood NEGATIVE (0-5) Keith/ul Urine Nitrite NEGATIVE (NEGATIVE) Urine Bilirubin NEGATIVE (NEGATIVE) Urine Urobilinogen NORMAL (0-1) mg/dL Ur Leukocyte Esterase 1+ (NEGATIVE) Urine Microscopic WBC 5-10 (0-5) /HPF Ur Epithelial Cells RARE (FEW) /HPF Urine Bacteria RARE (NEGATIVE) /HPF Urine Mucus MODERATE (NEGATIVE) /HPF Urine Glucose NEGATIVE (NEGATIVE) mg/dL Stl C. diff Tox B Gene (NEGATIVE) C.difficile 027-NAP1-B1 (NEGATIVE) Specimen Received 08-27-17 5260. 08/28/17 08/28/17 08/28/17 Range/Units 05:08 05:08 07:15 WBC 4.4 (4.0-10.5) K/mm3 RBC 4.23 (4.1-5.4) M/mm3 Hgb 11.3 L (12.0-16.0) gm/dl Hct 35.6 (35-47) % MCV 84.2 (78-100) fl MCH 26.7 (26-32) pg MCHC 31.7 L (32-36) g/dl RDW 14.9 H (11.5-14.0) % Plt Count 211 (150-450) K/mm3 MPV 10.3 H (6-9.5) fl Gran % 54.8 (36.0-66.0) % Lymphocytes % 33.4 (24.0-44.0) % Monocytes % 8.6 (0.0-12.0) % Eosinophils % 2.7 (0.00-5.0) % Basophils % 0.5 (0.0-0.4) % Basophils # 0.02 (0-0.4) Sodium 145 (136-145) mEq/L Potassium 3.4 L (3.5-5.1) mEq/L Chloride 111 H (98-107) mEq/L Carbon Dioxide 27.1 (21-32) mEq/L Anion Gap 10.2 (5-15) MEQ/L BUN 11 (9-20) mg/dL Creatinine 0.68 (0.55-1.30) mg/dl Estimated GFR > 60 ML/MIN Glucose 81 (70-110) MG/DL Hemoglobin A1c (4.5-6.2) Calcium 8.5 (8.5-10.1) mg/dL Total Bilirubin 0.30 (0.2-1.0) mg/dL AST 5 L (15-37) U/L ALT 13 (12-78) U/L Alkaline Phosphatase 43 L (46-116) U/L Serum Total Protein 6.1 L (6.4-8.2) gm/dL Albumin 3.0 L (3.4-5.0) g/dL Amylase (25-115) U/L Lipase (73-393) U/L TSH 3rd Generation (0.358-3.740) mIU/L Ur Collection Type Urine Color (YELLOW) Urine Appearance (CLEAR) Urine pH (5-6) Ur Specific [place] (1.005-1.025) Urine Protein (Negative) Urine Ketones (NEGATIVE) Urine Blood (0-5) Keith/ul Urine Nitrite (NEGATIVE) Urine Bilirubin (NEGATIVE) Urine Urobilinogen (0-1) mg/dL Ur Leukocyte Esterase (NEGATIVE) Urine Microscopic WBC (0-5) /HPF Ur Epithelial Cells (FEW) /HPF Urine Bacteria (NEGATIVE) /HPF Urine Mucus (NEGATIVE) /HPF Urine Glucose (NEGATIVE) mg/dL Stl C. diff Tox B Gene NEGATIVE (NEGATIVE) C.difficile 027-NAP1-B1 PRESUMPTIVE NEGATIVE (NEGATIVE) Specimen Received Radiology Exams: Radiology Procedures Category Date Time Status ABDOMEN AND PELVIS W/0 CONTRAS [CT] Routine Exams 08/27/17 16:34 Completed Assessment/Plan (1) Nausea & vomiting Current Visit: Yes Status: Acute Qualifiers: Vomiting type: cyclical vomiting Assessment & Plan: Pt to get EGD tomorrow with Dr. Villarreal. Code(s): R11.2 - NAUSEA WITH VOMITING, UNSPECIFIED (2) Diarrhea Current Visit: Yes Status: Acute Assessment & Plan: C. diff neg. Colonoscopy tomorrow with DR. Villarreal; she has never had a colonoscopy before. Code(s): R19.7 - DIARRHEA, UNSPECIFIED (3) Dehydration Current Visit: Yes Status: Resolved Code(s): E86.0 - DEHYDRATION (4) Diabetes mellitus Current Visit: No Status: Chronic Qualifiers: Diabetes mellitus type: type 2 Diabetes mellitus complication status: with neurologic complications Diabetes mellitus complication detail: with polyneuropathy Diabetes mellitus long term care administrator insulin use: without long term care administrator use Qualified Code(s): E11.42 - Type 2 diabetes mellitus with diabetic polyneuropathy Assessment & Plan: her BS here 75. Code(s): E11.9 - TYPE 2 DIABETES MELLITUS WITHOUT COMPLICATIONS (5) Anxiety and depression Current Visit: Yes Status: Acute Assessment & Plan: Will restart pt on lexapro, it worked well for her in the past. Code(s): F41.8 - OTHER SPECIFIED ANXIETY DISORDERS (6) Anemia Current Visit: Yes Status: Acute Qualifiers: Anemia type: unspecified type Qualified Code(s): D64.9 - Anemia, unspecified Assessment & Plan: mild, likely dilutional Code(s): D64.9 - ANEMIA, UNSPECIFIED (7) Hypokalemia Current Visit: Yes Status: Acute Assessment & Plan: mild, recheck in a.m. Code(s): E87.6 - HYPOKALEMIA
[2017-08-28] MEDS ORDERED: CITROMA 296 ML PO ONE (16:10)
[2017-08-28] MEDS: Phenergan 25 MG INJ IV PRN ×2 (16:16→20:24)
[2017-08-28] MEDS ORDERED: IMODIUM 2 MG PO SCH (22:00)
[2017-08-29] MEDS: Sodium Chloride 0.9% W/ 20 mEq KCl/LITER 1,000 ML IV SCH (01:45)
[2017-08-29] MEDS ORDERED: Lactated Ringers 1,000 ML IV SCH (04:00)
[2017-08-29] MEDS ORDERED: Versed 2 MG/2 ML Injection IV ONE (06:00)
[2017-08-29] MEDS ORDERED: DIPRIVAN 200 MG/20 ML IV ONE (06:00)
[2017-08-29 06:43] LABS: Mean Cell Volume 83.7 fl (78-100); Mean Corpuscular Hemoglobin 26.5 pg (26-32); Mean Platelet Volume 10.7 fl (6-9.5); Platelet Count 262 K/mm3 (150-450); Red Blood Count 4.65 M/mm3 (4.1-5.4); Red Cell Distribution Width 15.1 % (11.5-14.0); White Blood Count 4.8 K/mm3 (4.0-10.5)
[2017-08-29 06:51] LABS: HEPATITIS B VIRUS CORE TOT AB Non Reactive (Non Reactive)
[2017-08-29 06:54] LABS: ALBUMIN 3.6 g/dL (3.4-5.0); ALKALINE PHOSPHATASE 46 U/L (46-116); BLOOD UREA NITROGEN 5 mg/dL (9-20); CHLORIDE 110 mEq/L (98-107); Carbon Dioxide 25.8 mEq/L (21-32); Glucose 87 MG/DL (70-110); Potassium 3.7 mEq/L (3.5-5.1); SGOT/AST 14 U/L (15-37); SGPT/ALT 21 U/L (12-78); SODIUM 145 mEq/L (136-145); Total Protein 6.9 gm/dL (6.4-8.2)
[2017-08-29] MEDS: ROCEPHIN 1 Gm-D5w 50 ml Bag** 1 G/50 ML IVPB IV SCH (09:45)
[2017-08-29] MEDS: SYNTHROID 50 MCG PO SCH (09:46)
--- NOTE | 2017-08-29 09:46 | OP ---
SURGERY DATE/TIME: 08/29/2017 0849 PREOPERATIVE DIAGNOSES: 1) Recurrent nausea and vomiting. 2) Diarrhea. POSTOPERATIVE DIAGNOSES: 1) Normal EGD. 2) Normal colon. PROCEDURES: 1) EGD. 2) Colonoscopy. SURGEON: Jabier Villarreal M.D. ANESTHESIA: MAC by Babak Puga CRNA. ESTIMATED BLOOD LOSS: Minimal. SPECIMENS: Two cold forceps biopsies from the duodenum for sprue. DESCRIPTION OF PROCEDURE: After informed written consent was obtained, the patient was taken to the endoscopy suite. She had a bite block inserted and underwent monitored anesthesia. The endoscope was inserted into the posterior oropharynx and under direct visualization the esophagus was traversed. There were no mucosal abnormalities appreciable. The gastroesophageal junction and gastric mucosa within normal limits. The pylorus was traversed. First and second portions of the duodenum appeared normal. Two cold forceps biopsies were taken from the duodenum and sent for celiac sprue testing. The remainder of the exam was within normal limits upon withdrawal. The scope was removed and the scopes were switched. Digital rectal exam showed normal sphincter tone and no internal lesions. The scope was inserted in the rectum and sequentially the entire colonic mucosa was traversed. The level of cecum was reached and verified with direct visualization of ileocecal valve. Upon withdrawal careful mucosal inspection revealed no gross mucosal abnormalities. Prep was noted to be fair. Prior to withdrawal retroflexion was performed and within normal limits. The scope was removed and the patient was transferred to the recovery room in excellent condition.
--- NOTE | 2017-08-29 09:47 | PCM.DS ---
Discharge Summary Date of Admission: 08/27/17 16:10 Admitting Physician: ANDREA GREENE Primary Care Provider: ANDREA GREENE Allergies Allergies No Known Drug Allergies Allergy (Verified 08/11/17 23:41) Hospital Summary - Hospital Course Hospital Course: patient admitted with recurrent nausea, vomiting, diarrhea and dehydration. she was hydrated and started on rocephin emperically. had an egd/colonoscopy with no acute findings. she is feeling much better after hydration. - Vitals & Intake/Output Vital Signs: Vital Signs Temperature 98 F 08/29/17 07:47 Pulse Rate 73 08/29/17 07:47 Respiratory Rate 19 08/29/17 07:47 Blood Pressure 140/64 08/29/17 07:47 O2 Sat by Pulse Oximetry 97 08/29/17 07:47 Intake & Output: Intake & Output 08/26/17 08/27/17 08/28/17 08/29/17 11:59 11:59 11:59 11:59 Intake Total 1469 5275 Output Total 400 4650 Balance 1069 625 Weight 108.091 kg 108.091 kg - Lab Result Diagrams: 08/29/17 05:25 08/29/17 05:25 Lab Results-Last 24 Hrs: Accuchecks Date 08/28/17 Date 08/28/17 Time 22:00 Time 11:30 Accucheck Value: 91 Accucheck Value: 67 Accucheck Value: 83 Lab Results-Last 24 Hours 08/27/17 08/28/17 08/28/17 Range/Units 05:08 05:00 07:15 WBC (4.0-10.5) K/mm3 RBC (4.1-5.4) M/mm3 Hgb (12.0-16.0) gm/dl Hct (35-47) % MCV (78-100) fl MCH (26-32) pg MCHC (32-36) g/dl RDW (11.5-14.0) % Plt Count (150-450) K/mm3 MPV (6-9.5) fl Sodium (136-145) mEq/L Potassium (3.5-5.1) mEq/L Chloride (98-107) mEq/L Carbon Dioxide (21-32) mEq/L Anion Gap (5-15) MEQ/L BUN (9-20) mg/dL Creatinine (0.55-1.30) mg/dl Estimated GFR ML/MIN Glucose (70-110) MG/DL Calcium (8.5-10.1) mg/dL Total Bilirubin (0.2-1.0) mg/dL AST (15-37) U/L ALT (12-78) U/L Alkaline Phosphatase (46-116) U/L Serum Total Protein (6.4-8.2) gm/dL Albumin (3.4-5.0) g/dL TSH 3rd Generation 1.587 (0.358-3.740) mIU/L Stl C. diff Tox B Gene NEGATIVE (NEGATIVE) C.difficile 027-NAP1-B1 PRESUMPTIVE NEGATIVE (NEGATIVE) Hepatitis A IgM Ab Non Reactive (Non Reactive) Hep Bs Antigen Non Reactive (Non Reactive) Hep Bs Antibody, Quant 283.50 H (0.00-8.49) mIU/mL Hep B Core Total Ab Ref Non Reactive (Non Reactive) Hepatitis C Antibody Non Reactive (Non Reactive) 08/29/17 08/29/17 08/29/17 Range/Units 05:25 05:25 05:25 WBC 4.8 (4.0-10.5) K/mm3 RBC 4.65 (4.1-5.4) M/mm3 Hgb 12.3 (12.0-16.0) gm/dl Hct 38.9 (35-47) % MCV 83.7 (78-100) fl MCH 26.5 (26-32) pg MCHC 31.6 L (32-36) g/dl RDW 15.1 H (11.5-14.0) % Plt Count 262 (150-450) K/mm3 MPV 10.7 H (6-9.5) fl Sodium 145 (136-145) mEq/L Potassium 3.7 (3.5-5.1) mEq/L Chloride 110 H (98-107) mEq/L Carbon Dioxide 25.8 (21-32) mEq/L Anion Gap 13.0 (5-15) MEQ/L BUN 5 L (9-20) mg/dL Creatinine 0.62 (0.55-1.30) mg/dl Estimated GFR > 60 ML/MIN Glucose 87 (70-110) MG/DL Calcium 9.1 (8.5-10.1) mg/dL Total Bilirubin 0.30 (0.2-1.0) mg/dL AST 14 L (15-37) U/L ALT 21 (12-78) U/L Alkaline Phosphatase 46 (46-116) U/L Serum Total Protein 6.9 (6.4-8.2) gm/dL Albumin 3.6 (3.4-5.0) g/dL TSH 3rd Generation 1.642 (0.358-3.740) mIU/L Stl C. diff Tox B Gene (NEGATIVE) C.difficile 027-NAP1-B1 (NEGATIVE) Hepatitis A IgM Ab (Non Reactive) Hep Bs Antigen (Non Reactive) Hep Bs Antibody, Quant (0.00-8.49) mIU/mL Hep B Core Total Ab Ref (Non Reactive) Hepatitis C Antibody (Non Reactive) Micro Results-Entire Visit: Accuchecks Date 08/28/17 Date 08/28/17 Time 22:00 Time 11:30 Accucheck Value: 91 Accucheck Value: 67 Accucheck Value: 83 - Radiology Exams Ordered Rad Exams-Entire Visit: Radiology Procedures Category Date Time Status ABDOMEN AND PELVIS W/0 CONTRAS [CT] Routine Exams 08/27/17 16:34 Completed Discharge Exam General Appearance: no apparent distress, alert Skin Exam: normal color, warm, dry Respiratory Exam: normal breath sounds, lungs clear, No respiratory distress Cardiovascular Exam: regular rate/rhythm, normal heart sounds Gastrointestinal/Abdomen Exam: soft, No tenderness, No mass Extremity Exam: normal inspection, normal range of motion Final Diagnosis/Problem List - Final Discharge Diagnosis/Problem (1) Nausea & vomiting Current Visit: Yes Status: Acute Assessment & Plan: may be anxiety related, started on lexapro and will give oral anti-emetics. ct showed enlarged spleen with cyst and enlarged fatty liver, these are not new findings. (2) Diarrhea Current Visit: Yes Status: Acute (3) Dehydration Current Visit: Yes Status: Resolved (4) Diabetes mellitus Current Visit: No Status: Chronic - Discharge Disposition: Home, Self-Care Condition: Stable Prescriptions: New Escitalopram Oxalate 10 mg [Lexapro 10 MG] 10 mg PO QAM #30 tablet Promethazine HCl 25 mg Supp [Phenergan 25 mg Supp] 25 mg RC Q6-8HPRN PRN #10 supp.rect PRN Reason: Nausea Promethazine HCl 25 mg [Phenergan 25 mg] 12.5 mg PO Q8H PRN PRN #30 tablet PRN Reason: Nausea/Vomiting Continue Promethazine HCl 1 tab PO Q8H PRN PRN PRN Reason: Nausea/Vomiting Pioglitazone 30 mg [Actos 30 MG] 30 mg PO BID Levothyroxine Sodium 50 Mcg [Synthroid 50 Mcg] 50 mcg PO DAILY Carisoprodol 350 mg [Soma 350 mg] 1 tab PO TID Alogliptin Benzoate [Alogliptin] 12.5 mg PO DAILY Hydrocodone Bit/Acetaminophen [[place] 5/325Mg] 1 tab PO Q4-6HPRN PRN #15 tablet PRN Reason: Pain Naproxen 375 mg [Naprosyn 375 mg] 375 mg PO DAILY Follow up with: ANDREA GREENE MD [Primary Care Provider] - 1 Week Forms: Patient Portal Information
[2017-08-29] MEDS ORDERED: NON-FORMULARY ITEM PO SCH (10:00)
[2017-08-29] MEDS ORDERED: Lexapro 10 MG PO SCH (10:00)
[2017-08-29 12:02] VITALS: BP 148/79; PULSE 80; O2SAT 96
[2017-08-29 14:09] LABS: Giardia Antigen EIA Negative (Negative)
== END 2017-08-29 13:30 | disposition home or self-care (01) ==
LOC: MED SURG 16:10
PROVIDERS: ADMIT Family Medicine; ATTEND Family Medicine
PROC: 0DB98ZX Excision of Duodenum, Via Natural or Artificial Opening Endoscopic, Diagnostic (ICD-10-PCS; principal; 2017-08-29)
PROC: 0DJD8ZZ Inspection of Lower Intestinal Tract, Via Natural or Artificial Opening Endoscopic (ICD-10-PCS; 2017-08-29)
DX: R11.2 Nausea with vomiting, unspecified (principal); R19.7 Diarrhea, unspecified; E86.0 Dehydration; E11.9 Type 2 diabetes mellitus without complications; J45.909 Unspecified asthma, uncomplicated; J44.9 Chronic obstructive pulmonary disease, unspecified; E03.9 Hypothyroidism, unspecified; M19.90 Unspecified osteoarthritis, unspecified site
CPT/HCPCS: 00740; 00810; 36415; 74176; 80053; 80074; 81000; 82150; 82962; 83036; 83690; 84443; 85025; 85027; 87045; 87046; 87077; 87086; 87177; 87186; 87209; 87335; 87493; 88305; G0378; J0696; J2250; J2405; J2550; J2704; A9270-GY

== ENCOUNTER 2018-10-09 02:48 | Emergency (ER) | payer OTHER ==
[2018-10-09] MEDS ORDERED: Zofran 4 MG/2 ML VIAL ONE (03:12)
[2018-10-09] MEDS ORDERED: Sodium Chloride 0.9% 1000 ML 1,000 ML ONE ×2 (03:12→04:30)
[2018-10-09] MEDS ORDERED: Sodium Chloride 0.9% 1000 ML 1,000 ML IV STA ×2 (03:26→04:44)
[2018-10-09] MEDS ORDERED: Zofran 4 MG/2 ML VIAL IV ONE (03:30)
[2018-10-09 03:55] LABS: Lactic Acid 2.1 (0.4-2.0)
[2018-10-09] MEDS ORDERED: Transderm Scop 1.5MG Patch ONE (03:57)
[2018-10-09 04:12] LABS: BASOPHIL % 0.1 % (0.0-0.4); Basophil (Absolute #) 0.01 (0-0.4); Eosinophil % 2.2 % (0.00-5.0); Eosinophil (Absolute #) 0.16 (0-0.5); Granulocyte Absolute (ANC) 5.57 (1.4-6.9); Granulocytes % 78.2 % (36.0-66.0); Hematocrit 38.3 % (35-47); Hemoglobin 12.3 gm/dl (12.0-16.0); Lymphocyte (Absolute #) 1.06 (1.0-4.6); Lymphocytes % 14.9 % (24.0-44.0); Mean Cell Volume 85.3 fl (78-100); Mean Corpuscular Hemoglobin 27.4 pg (26-32); Mean Corpuscular Hgb Concent. 32.1 g/dl (32-36); Mean Platelet Volume 10.8 fl (6-9.5); Monocyte (Absolute #) 0.33 (0.0-1.3); Monocytes % 4.6 % (0.0-12.0); Platelet Count 223 K/mm3 (150-450); Red Blood Count 4.49 M/mm3 (4.1-5.4); Red Cell Distribution Width 15.3 % (11.5-14.0); White Blood Count 7.1 K/mm3 (4.0-10.5)
[2018-10-09 04:20] LABS: ALBUMIN 4.3 g/dL (3.5-5.0); ANION GAP 13.9 MEQ/L (5-15); BLOOD UREA NITROGEN 10 mg/dL (7-17); CHLORIDE 106 mmol/L (98-107); Calcium 9.4 mg/dL (8.4-10.2); Carbon Dioxide 25 mmol/L (22-30); Creatinine 1 0.62 mg/dL (0.52-1.04); Glucose 127 mg/dL (74-106); PHOSPHOROUS 2.1 mg/dL (2.5-4.5); Potassium 3.9 mmol/L (3.5-5.1); SODIUM 142 mmol/L (137-145)
[2018-10-09 04:21] LABS: ALBUMIN 4.2 g/dL (3.5-5.0); BILIRUBIN,TOTAL 0.3 mg/dL (0.2-1.3); Direct Bilirubin 0.3 mg/dL (0.0-0.4); PHOSPHOROUS 2.2 mg/dL (2.5-4.5)
[2018-10-09 04:37] LABS: INFLUENZA A NEGATIVE (NEGATIVE); INFLUENZA B NEGATIVE (NEGATIVE); RESPIRATORY SYNCTIAL VIRUS NEGATIVE (Negative)
[2018-10-09] MEDS ORDERED: Transderm Scop 1.5MG Patch TOP ONE (04:44)
[2018-10-09 05:06] LABS: 027 TOX PROD PRESUMPTIVE NEGATIVE (NEGATIVE); TOXIGENIC C. DIFF ORG NEGATIVE (NEGATIVE)
--- NOTE | 2018-10-09 06:32 | ERPHSYRPT ---
- History of Present Illness Historian: patient, family Exam Limitations: no limitations Patient Subjective Stated Complaint: Vomiting Triage Nursing Assessment: Patient ambulated back to ED and transferred self to bed. Patient A+O X 3. Patient complains of vomitting for 24 hours. Patient states she has also been having diarrhea. Patient complains of headache 04/16. Abdomen soft and round with BS present X 4. Patient has been afebrile. Timing/Duration: yesterday Activities at Onset: none Quality: cramping Abdominal Pain Onset Location: generalized abdomen Pain Radiation: no radiation Modifying Factors: Improves With: nothing Associated Symptoms: diarrhea, nausea (vomiting) Hx Tetanus, Diphtheria Vaccination/Date Given: No Hx Influenza Vaccination/Date Given: Yes Hx Pneumococcal Vaccination/Date Given: No Immunizations Up to Date: Yes <CHELSEA ORTEZ - Last Filed: 10/09/18 07:04> <DENY FORD - Last Filed: 10/09/18 07:33> - History of Present Illness Physician History: Pt is a 58 y/o female that in the afternoon of 10/08/18, started having nausea and vomiting. Later on, she developed diarrhea. Pt could not keep any fluid untake, and kept vomiting, secondary to that, she came to the ER. (CHELSEA ORTEZ) Allergies/Adverse Reactions: No Known Drug Allergies Allergy (Verified 10/09/18 03:09) Home Medications: Alogliptin Benzoate [Alogliptin] 12.5 mg PO DAILY 01/17/17 [History] Carisoprodol 350 mg [Soma 350 mg] 1 tab PO TID 01/17/17 [History] Levothyroxine Sodium 50 Mcg [Synthroid 50 Mcg] 50 mcg PO DAILY 01/17/17 [ History] Pioglitazone 30 mg [Actos 30 MG] 30 mg PO BID 01/17/17 [History] Promethazine HCl 1 tab PO Q8H PRN PRN 01/17/17 [History] Naproxen 375 mg [Naprosyn 375 mg] 375 mg PO DAILY 08/27/17 [History] - Review of Systems Constitutional: Chills, Lethargy, Malaise Eyes: No Symptoms Ears, Nose, & Throat: No Symptoms Respiratory: No Cough, No Dyspnea Cardiac: No Chest Pain, No Edema, No Syncope Abdominal/Gastrointestinal: Abdominal Pain, Nausea, Vomiting, Diarrhea Genitourinary Symptoms: No Dysuria Musculoskeletal: Myalgias Skin: No Rash Neurological: No Dizziness, No Focal Weakness, No Sensory Changes Psychological: No Symptoms Endocrine: No Symptoms All Other Systems: Reviewed and Negative <CHELSEA ORTEZ Filed: 10/09/18 07:04> - Past Medical History Pertinent Past Medical History: Yes Neurological History: No Pertinent History ENT History: No Pertinent History Cardiac History: No Pertinent History Respiratory History: Asthma, COPD Endocrine Medical History: Diabetes Type II, Hypothyroidism Musculoskeletal History: Arthritis, Osteoarthritis GI Medical History: Gallbladder Disease History: No Pertinent History Psycho-Social History: No Pertinent History Female Reproductive Disorders: Menstrual Problems 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 - Past Surgical History Past Surgical History: Yes Neuro Surgical History: No Pertinent History Cardiac: No Pertinent History Respiratory: No Pertinent History Gastrointestinal: Cholecystectomy Genitourinary: No Pertinent History Musculoskeletal: Orthopedic Surgery Female Surgical History: Lumpectomy, Tubal Ligation Other Surgical History: thermal ablation, left knee scope - Social History Smoking Status: Never smoker Exposure to second hand smoke: No Drug Use: none Patient Lives Alone: No - Female History Hx Last Menstrual Period: Menopausal Hx Now: No <CHELSEA ORTEZ Filed: 10/09/18 07:04> - Physical Exam General Appearance: mild distress Eye Exam: PERRL/EOMI, eyes nml inspection Ears, Nose, Throat Exam: normal ENT inspection, pharynx normal, moist mucous membranes Neck Exam: normal inspection, non-tender, supple, full range of motion Respiratory Exam: normal breath sounds, lungs clear, No respiratory distress Cardiovascular Exam: regular rate/rhythm, normal heart sounds Gastrointestinal/Abdomen Exam: soft, tenderness (mild) Back Exam: normal inspection, normal range of motion, No CVA tenderness, No vertebral tenderness Extremity Exam: normal inspection, normal range of motion, pelvis stable Neurologic Exam: alert, oriented x 3, cooperative, normal mood/affect, nml cerebellar function, sensation nml, No motor deficits Skin Exam: normal color, warm, dry SpO2: 100 Oxygen Delivery: Room Air <CHELSEA ORTEZ Last Filed: 10/09/18 07:04> - Nursing Vital Signs Nursing Vital Signs: Initial Vital Signs Temperature 97.4 F 10/09/18 03:01 Pulse Rate 82 10/09/18 03:01 Respiratory Rate 18 10/09/18 03:01 Blood Pressure 161/79 10/09/18 03:01 O2 Sat by Pulse Oximetry 100 10/09/18 03:01 Pain Scale Pain Intensity 0 - Course Nursing assessment & vital signs reviewed: Yes <CHELSEA ORTEZ - Last Filed: 10/09/18 07:04> Ordered Tests: Active Orders 24 hr Category Date Time Status BMP/RENAL PROFILE Stat Lab 10/09/18 03:45 Completed CBC W DIFF Stat Lab 10/09/18 03:45 Completed Hepatic Function Panel Stat Lab 10/09/18 03:45 Completed Lactic Acid Stat Lab 10/09/18 03:50 Completed Lactic Acid Stat Lab 10/09/18 06:32 Completed MAGNESIUM Stat Lab 10/09/18 03:45 Completed PHOSPHOROUS Stat Lab 10/09/18 03:45 Completed UA W/RFX UR CULTURE Stat Lab 10/09/18 03:29 Ordered Medication Summary Discontinued Medications Generic Name Dose Route Start Last Admin Trade Name Donq PRN Reason Stop Dose Admin Sodium Chloride Confirm 10/09/18 03:12 Sodium Chloride 0.9% 1000 Ml Administered 10/09/18 03:13 Dose 1,000 mls @ ud .ROUTE .STK-MED ONE Sodium Chloride 1,000 mls @ 999 mls/hr 10/09/18 03:26 10/09/18 04:46 Sodium Chloride 0.9% 1000 Ml IV 10/09/18 04:26 Infused .Q1H1M STA Infusion Sodium Chloride Confirm 10/09/18 04:30 Sodium Chloride 0.9% 1000 Ml Administered 10/09/18 04:31 Dose 1,000 mls @ ud .ROUTE .STK-MED ONE Sodium Chloride 1,000 mls @ 999 mls/hr 10/09/18 04:44 10/09/18 06:37 Sodium Chloride 0.9% 1000 Ml IV 10/09/18 05:44 Infused .Q1H1M STA Infusion Ondansetron HCl Confirm 10/09/18 03:12 Zofran 4 Mg/2 Ml Vial Administered 10/09/18 03:13 Dose 4 mg .ROUTE .STK-MED ONE Ondansetron HCl 4 mg 10/09/18 03:30 10/09/18 03:49 Zofran 4 Mg/2 Ml Vial IV 10/09/18 03:31 4 mg STAT ONE Administration Scopolamine HBr Confirm 10/09/18 03:57 Transderm Scop 1.5mg Patch Administered 10/09/18 03:58 Dose 1.5 mg .ROUTE .STK-MED ONE Scopolamine HBr 1.5 mg 10/09/18 04:44 10/09/18 04:47 Transderm Scop 1.5mg Patch TOP 10/09/18 04:45 1.5 mg STAT ONE Administration Lab/Rad Data: Laboratory Result Diagrams 10/09/18 03:45 10/09/18 03:45 Laboratory Results 10/09/18 10/09/18 10/09/18 Range/Units 06:32 03:50 03:50 WBC (4.0-10.5) K/mm3 RBC (4.1-5.4) M/mm3 Hgb (12.0-16.0) gm/dl Hct (35-47) % MCV (78-100) fl MCH (26-32) pg MCHC (32-36) g/dl RDW (11.5-14.0) % Plt Count (150-450) K/mm3 MPV (6-9.5) fl Gran % (36.0-66.0) % Eos # (Auto) (0-0.5) Absolute Lymphs (auto) (1.0-4.6) Absolute Monos (auto) (0.0-1.3) Lymphocytes % (24.0-44.0) % Monocytes % (0.0-12.0) % Eosinophils % (0.00-5.0) % Basophils % (0.0-0.4) % Absolute Granulocytes (1.4-6.9) Basophils # (0-0.4) Sodium (137-145) mmol/L Potassium (3.5-5.1) mmol/L Chloride (98-107) mmol/L Carbon Dioxide (22-30) mmol/L Anion Gap (5-15) MEQ/L BUN (7-17) mg/dL Creatinine (0.52-1.04) mg/dL Estimated GFR ML/MIN Glucose (74-106) mg/dL Lactic Acid 0.9 2.1 H (0.4-2.0) Calcium (8.4-10.2) mg/dL Phosphorus (2.5-4.5) mg/dL Magnesium (1.6-2.3) mg/dL Total Bilirubin (0.2-1.3) mg/dL Direct Bilirubin (0.0-0.4) mg/dL AST (14-36) U/L ALT (0-35) U/L Alkaline Phosphatase (38-126) U/L Serum Total Protein (6.3-8.2) g/dL Albumin (3.5-5.0) g/dL Stl C. diff Tox B Gene (NEGATIVE) C.difficile 027-NAP1-B1 (NEGATIVE) Influenza Type A Ag NEGATIVE (NEGATIVE) Influenza Type B Ag NEGATIVE (NEGATIVE) RSV (PCR) NEGATIVE (Negative) 10/09/18 10/09/18 10/09/18 Range/Units 03:45 03:45 03:45 WBC (4.0-10.5) K/mm3 RBC (4.1-5.4) M/mm3 Hgb (12.0-16.0) gm/dl Hct (35-47) % MCV (78-100) fl MCH (26-32) pg MCHC (32-36) g/dl RDW (11.5-14.0) % Plt Count (150-450) K/mm3 MPV (6-9.5) fl Gran % (36.0-66.0) % Eos # (Auto) (0-0.5) Absolute Lymphs (auto) (1.0-4.6) Absolute Monos (auto) (0.0-1.3) Lymphocytes % (24.0-44.0) % Monocytes % (0.0-12.0) % Eosinophils % (0.00-5.0) % Basophils % (0.0-0.4) % Absolute Granulocytes (1.4-6.9) Basophils # (0-0.4) Sodium 142 (137-145) mmol/L Potassium 3.9 (3.5-5.1) mmol/L Chloride 106 (98-107) mmol/L Carbon Dioxide 25 (22-30) mmol/L Anion Gap 13.9 (5-15) MEQ/L BUN 10 (7-17) mg/dL Creatinine 0.62 (0.52-1.04) mg/dL Estimated GFR > 60.0 ML/MIN Glucose 127 H (74-106) mg/dL Lactic Acid (0.4-2.0) Calcium 9.4 (8.4-10.2) mg/dL Phosphorus 2.2 L 2.1 L (2.5-4.5) mg/dL Magnesium 1.9 (1.6-2.3) mg/dL Total Bilirubin 0.30 (0.2-1.3) mg/dL Direct Bilirubin 0.3 (0.0-0.4) mg/dL AST 17 (14-36) U/L ALT 16 (0-35) U/L Alkaline Phosphatase 79 (38-126) U/L Serum Total Protein 7.0 (6.3-8.2) g/dL Albumin 4.2 4.3 (3.5-5.0) g/dL Stl C. diff Tox B Gene (NEGATIVE) C.difficile 027-NAP1-B1 (NEGATIVE) Influenza Type A Ag (NEGATIVE) Influenza Type B Ag (NEGATIVE) RSV (PCR) (Negative) 10/09/18 10/09/18 Range/Units 03:45 03:44 WBC 7.1 (4.0-10.5) K/mm3 RBC 4.49 (4.1-5.4) M/mm3 Hgb 12.3 (12.0-16.0) gm/dl Hct 38.3 (35-47) % MCV 85.3 (78-100) fl MCH 27.4 (26-32) pg MCHC 32.1 (32-36) g/dl RDW 15.3 H (11.5-14.0) % Plt Count 223 (150-450) K/mm3 MPV 10.8 H (6-9.5) fl Gran % 78.2 H (36.0-66.0) % Eos # (Auto) 0.16 (0-0.5) Absolute Lymphs (auto) 1.06 (1.0-4.6) Absolute Monos (auto) 0.33 (0.0-1.3) Lymphocytes % 14.9 L (24.0-44.0) % Monocytes % 4.6 (0.0-12.0) % Eosinophils % 2.2 (0.00-5.0) % Basophils % 0.1 (0.0-0.4) % Absolute Granulocytes 5.57 (1.4-6.9) Basophils # 0.01 (0-0.4) Sodium (137-145) mmol/L Potassium (3.5-5.1) mmol/L Chloride (98-107) mmol/L Carbon Dioxide (22-30) mmol/L Anion Gap (5-15) MEQ/L BUN (7-17) mg/dL Creatinine (0.52-1.04) mg/dL Estimated GFR ML/MIN Glucose (74-106) mg/dL Lactic Acid (0.4-2.0) Calcium (8.4-10.2) mg/dL Phosphorus (2.5-4.5) mg/dL Magnesium (1.6-2.3) mg/dL Total Bilirubin (0.2-1.3) mg/dL Direct Bilirubin (0.0-0.4) mg/dL AST (14-36) U/L ALT (0-35) U/L Alkaline Phosphatase (38-126) U/L Serum Total Protein (6.3-8.2) g/dL Albumin (3.5-5.0) g/dL Stl C. diff Tox B Gene NEGATIVE (NEGATIVE) C.difficile 027-NAP1-B1 PRESUMPTIVE NEGATIVE (NEGATIVE) Influenza Type A Ag (NEGATIVE) Influenza Type B Ag (NEGATIVE) RSV (PCR) (Negative) - Progress Progress: improved <CHELSEA ORTEZ - Last Filed: 10/09/18 07:04> - Progress Progress: improved <DENY FORD - Last Filed: 10/09/18 07:33> - Progress Progress Note: 10/09/18 07:21 Pt care discussed and care accepted from Dr Ortez at 07:00. 10/09/18 07:28 Pt given zofran 4 mg and fluids. Feeling better. Tolerating oral fluids. (DENY FORD) <CHELSEA ORTEZ - Last Filed: 10/09/18 07:04> - Departure Time of Disposition: 07:30 Departure Disposition: Home Critical Care Time: No <DENY FORD - Last Filed: 10/09/18 07:33> - Departure Clinical Impression: Gastroenteritis Condition: Stable Referrals: ANDREA GREENE MD [Primary Care Provider] - Additional Instructions: You have nausea, vomiting, and diarrhea (gastroenteritis). You were given Zofran 4 mg and fluids by IV in the ER. You have a scopolamine patch. Do not leave the scopolamine patch on for more than 72 hours. Take Phenergan 25 mg every 8 hours as needed for nausea and vomiting. Begin your diet with an all liquid diet and advance as tolerated. Follow-up with your primary medical doctor as needed. Prescriptions: Promethazine HCl 25 mg [Phenergan 25 mg] 25 mg PO Q8H PRN PRN #12 tablet PRN Reason: Nausea/Vomiting
[2018-10-09 07:25] LABS: Appearance CLEAR (CLEAR); Bilirubin NEGATIVE (NEGATIVE); Blood NEGATIVE Ery/ul (0-5); Glucose NEGATIVE (NEGATIVE); Ketones NEGATIVE (NEGATIVE); Leukocyte Esterase NEGATIVE (NEGATIVE); Nitrite NEGATIVE (NEGATIVE); Protein,Urine Dip NEGATIVE (Negative); Specific Gravity 1.004 (1.005-1.025); Urobilinogen NEGATIVE mg/dL (0-1)
[2018-10-09 07:54] VITALS: BP 127/64; PULSE 78; O2SAT 98
[2018-10-10 09:55] LABS: Source: Feces
== END 2018-10-09 07:55 | disposition home or self-care (01) ==
LOC: ED 02:48
DX: K52.9 Noninfective gastroenteritis and colitis, unspecified (principal); R11.2 Nausea with vomiting, unspecified; R10.84 Generalized abdominal pain; Z79.899 Other long term (current) drug therapy
CPT/HCPCS: 36415; 80048; 80076; 81001; 82040; 83605; 83735; 83993; 84100; 85025; 87045; 87046; 87177; 87209; 87335; 87493; 87631; 96360; 96361; 96374; 99284; J2405; A9270-GY

== ENCOUNTER 2019-01-29 05:24 | Emergency (ER) | payer OTHER ==
[2019-01-29 05:43] VITALS: O2SAT 100
[2019-01-29 06:23] VITALS: BP 119/76; PULSE 76
--- NOTE | 2019-01-29 06:41 | ERPHSYRPT ---
- History of Present Illness Time Seen by Provider: 01/29/19 05:55 Source: patient, family Exam Limitations: no limitations Patient Subjective Stated Complaint: Pt states on Sunday she fell backwards over her couch onto her head and neck and then onto the right side, was sore for a couple of days, then this morning around 0400 she started throwing up and now can barely take a deep breath because she is hurting so bad Triage Nursing Assessment: Pt alert & oriented. Moving very slowly and guarding abdomen and chest. Respirations shallow due to pt not wanting to take a deep breath. Physician History: 58 y/o white female presents with bilat lower ant. rib pain and lower sternal pain after fall 5 days ago. pain not improved. here for evaluation Occurred: days ago (5) Reason for Fall: fell from height (hanging curtains) Injuries/Pain Location: chest (anterior chest wall) Loss of Consciousness: no loss of consciousness Quality: sharpness, stabbing Severity of Pain-Max: moderate Severity of Pain-Current: moderate Modifying Factors: Improves With: other (deep breath worsens) Associated Symptoms (Fall): muscle spasms, shortness of breath (because cannot take a deep breath) Allergies/Adverse Reactions: No Known Drug Allergies Allergy (Verified 10/09/18 03:09) Home Medications: Alogliptin Benzoate [Alogliptin] 12.5 mg PO DAILY 01/17/17 [History] Carisoprodol 350 mg [Soma 350 mg] 1 tab PO TID 01/17/17 [History] Levothyroxine Sodium 50 Mcg [Synthroid 50 Mcg] 50 mcg PO DAILY 01/17/17 [ History] Pioglitazone 30 mg [Actos 30 MG] 30 mg PO BID 01/17/17 [History] Hx Tetanus, Diphtheria Vaccination/Date Given: No Hx Influenza Vaccination/Date Given: Yes Hx Pneumococcal Vaccination/Date Given: No - Review of Systems Constitutional: No Symptoms Eyes: No Symptoms Ears, Nose, & Throat: No Symptoms Respiratory: No Symptoms Cardiac: No Symptoms Abdominal/Gastrointestinal: No Symptoms Musculoskeletal: Fall (chest wall pain) Skin: No Symptoms Neurological: No Symptoms Psychological: No Symptoms Endocrine: No Symptoms Hematologic/Lymphatic: No Symptoms Immunological/Allergic: No Symptoms All Other Systems: Reviewed and Negative - Past Medical History Pertinent Past Medical History: Yes Neurological History: No Pertinent History ENT History: No Pertinent History Cardiac History: No Pertinent History Respiratory History: Asthma, COPD Endocrine Medical History: Diabetes Type II, Hypothyroidism Musculoskeletal History: Arthritis, Osteoarthritis GI Medical History: Gallbladder Disease History: No Pertinent History Psycho-Social History: No Pertinent History Female Reproductive Disorders: Menstrual Problems 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 - Past Surgical History Past Surgical History: Yes Neuro Surgical History: No Pertinent History Cardiac: No Pertinent History Respiratory: No Pertinent History Gastrointestinal: Cholecystectomy Genitourinary: No Pertinent History Musculoskeletal: Orthopedic Surgery Female Surgical History: Tubal Ligation, Lumpectomy Other Surgical History: thermal ablation, left knee scope - Social History Smoking Status: Never smoker Exposure to second hand smoke: No Drug Use: none Patient Lives Alone: No - Female History Hx Now: No - Nursing Vital Signs Nursing Vital Signs: Initial Vital Signs Temperature 97.7 F 01/29/19 05:29 Pulse Rate 79 01/29/19 05:29 Respiratory Rate 16 01/29/19 05:29 Blood Pressure 134/89 01/29/19 05:29 O2 Sat by Pulse Oximetry 100 01/29/19 05:29 Pain Scale Pain Intensity 4 - [place] Coma Score Best Eye Response ([place]): (4) open spontaneously Best Verbal Response ([place]): (5) oriented Best Motor Response ([place]): (6) obeys commands [place] Total: 15 - Physical Exam General Appearance: mild distress, alert, anxiety Head Injury: no evidence of injury Eye Exam: PERRL/EOMI ENT Exam: airway nml Neck Exam: supple, trachea midline, full range of motion, normal alignment, normal inspection Respiratory/Chest Exam: chest tenderness (anterior lower bilat), normal breath sounds, No respiratory distress, No ecchymosis, No decreased breath sounds Cardiovascular Exam: normal heart sounds, regular rate/rhythm Gastrointestinal Exam: soft, normal bowel sounds, No tenderness, No guarding Rectal Exam: not done Extremity Exam: normal inspection, normal range of motion Neurologic Exam: alert, oriented x 3, cooperative, cardiology clinical consultant II-XII nml as tested, normal mood/affect Skin Exam: normal color, warm, dry SpO2 Interpretation: normal SpO2: 100 O2 Delivery: Room Air - Course Nursing assessment & vital signs reviewed: Yes Ordered Tests: Active Orders 24 hr Category Date Time Status CHEST 2 VIEWS (PA AND LAT) Stat Exams 01/29/19 05:50 Taken - Progress Progress: pain not gone completely, re-examined Progress Note: 01/29/19 06:41 cxr-no acute process. no rib fx. Counseled pt/family regarding: diagnosis, need for follow-up, rad results - Departure Departure Disposition: Home Clinical Impression: Bilateral contusion of ribs Clinical Impression: (Ruled Out): Contusion of ribs Condition: Stable Critical Care Time: No Referrals: ANDREA GREENE MD [Primary Care Provider] - Additional Instructions: take medications as prescribed. follow up with primary doctor for further management. stop your hydrocodone while taking percocet. Prescriptions: Oxycodone HCl/Acetaminophen [Percocet 5-325 mg Tablet] 1 each PO Q8H PRN PRN # 12 tablet MDD 3 PRN Reason: Pain Prednisone 10 mg [Deltasone 10 mg] 10 mg PO TID #12 tablet
[2019-01-29] MEDS ORDERED: Hydromorphone 1 mg/ml Ampule IM ONE (06:46)
[2019-01-29] MEDS ORDERED: ZOFRAN ODT 4 MG PO ONE (06:47)
[2019-01-29] MEDS ORDERED: ZOFRAN ODT 4 MG ONE (06:53)
[2019-01-29] MEDS ORDERED: Hydromorphone 1 mg/ml Ampule ONE (06:53)
--- NOTE | 2019-01-29 09:31 | XRAY ---
Indication: Pain following fall 5 days ago. Comparison: December 25, 2014. PA/lateral chest again demonstrates normal heart and lungs. Bony thorax intact. No new/acute findings.
== END 2019-01-29 07:25 | disposition home or self-care (01) ==
LOC: ED 05:24
DX: S20.212A Contusion of left front wall of thorax, initial encounter (principal); S20.211A Contusion of right front wall of thorax, initial encounter; R07.81 Pleurodynia; W08.XXXA Fall from other furniture, initial encounter; Y92.008 Other place in unspecified non-institutional (private) residence as the place of occurrence of the external cause; Z79.899 Other long term (current) drug therapy
CPT/HCPCS: 71046; 96372; 99283; J1170; Q0162

== ENCOUNTER 2021-07-15 00:22 | Emergency (ER) | payer MEDICAID ==
[2012-08-22 03:53] VITALS: BP 143/86
[2021-07-15] MEDS ORDERED: Sodium Chloride 0.9% 1000 ML 1,000 ML IV STA (00:37)
[2021-07-15] MEDS ORDERED: DECADRON 10MG INJ. IV ONE (00:38)
[2021-07-15] MEDS ORDERED: TORAdol 30 mg Injection IV ONE (00:40)
[2021-07-15] MEDS ORDERED: Compazine 10 MG/2 ML IV ONE (00:41)
[2021-07-15] MEDS ORDERED: Compazine 10 MG/2 ML ONE (00:48)
[2021-07-15] MEDS ORDERED: TORAdol 30 mg Injection ONE (00:48)
[2021-07-15] MEDS ORDERED: Sodium Chloride 0.9% 1000 ML 1,000 ML ONE ×2 (00:48→03:02)
[2021-07-15] MEDS ORDERED: DECADRON 10MG INJ. ONE (00:48)
--- NOTE | 2021-07-15 02:58 | ERPHSYRPT ---
- History of Present Illness Allergies/Adverse Reactions: No Known Drug Allergies Allergy (Verified 10/09/18 03:09) Home Medications: Alogliptin Benzoate [Alogliptin] 12.5 mg PO DAILY 01/17/17 [History] Carisoprodol 350 mg [Soma 350 mg] 1 tab PO TID 01/17/17 [History] Levothyroxine Sodium 50 Mcg [Synthroid 50 Mcg] 50 mcg PO DAILY 01/17/17 [History] Pioglitazone 30 mg [Actos 30 MG] 30 mg PO BID 01/17/17 [History] Hx Tetanus, Diphtheria Vaccination/Date Given: No Hx Influenza Vaccination/Date Given: Yes Hx Pneumococcal Vaccination/Date Given: No - Review of Systems Constitutional: No Symptoms, No Fever, No Chills Eyes: No Symptoms Ears, Nose, & Throat: No Symptoms Respiratory: No Symptoms, No Cough, No Dyspnea Cardiac: No Symptoms, No Chest Pain, No Edema, No Syncope Abdominal/Gastrointestinal: No Symptoms, No Abdominal Pain, No Nausea, No Vomiting, No Diarrhea Genitourinary Symptoms: No Symptoms, No Dysuria Musculoskeletal: No Symptoms, No Back Pain, No Neck Pain Skin: No Symptoms, No Rash Neurological: No Symptoms, No Dizziness, No Focal Weakness, No Sensory Changes Psychological: No Symptoms Endocrine: No Symptoms Hematologic/Lymphatic: No Symptoms Immunological/Allergic: No Symptoms All Other Systems: Reviewed and Negative - Past Medical History Pertinent Past Medical History: Yes Neurological History: No Pertinent History ENT History: No Pertinent History Cardiac History: No Pertinent History Respiratory History: Asthma, COPD Endocrine Medical History: Diabetes Type II, Hypothyroidism Musculoskeletal History: Arthritis, Osteoarthritis GI Medical History: Gallbladder Disease History: No Pertinent History Psycho-Social History: No Pertinent History Female Reproductive Disorders: Menstrual Problems 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 - Past Surgical History Past Surgical History: Yes Neuro Surgical History: No Pertinent History Cardiac: No Pertinent History Respiratory: No Pertinent History Gastrointestinal: Cholecystectomy Genitourinary: No Pertinent History Musculoskeletal: Orthopedic Surgery Female Surgical History: Tubal Ligation, Lumpectomy Other Surgical History: thermal ablation, left knee scope - Social History Smoking Status: Never smoker Exposure to second hand smoke: No Drug Use: none Patient Lives Alone: No - Physical Exam General Appearance: no apparent distress, alert Eye Exam: PERRL/EOMI, eyes nml inspection Ears, Nose, Throat Exam: normal ENT inspection, TMs normal, pharynx normal, moist mucous membranes Neck Exam: normal inspection, non-tender, supple, full range of motion Respiratory Exam: normal breath sounds, lungs clear, airway intact, No respir atory distress Cardiovascular Exam: regular rate/rhythm, normal heart sounds, normal peripheral pulses Gastrointestinal/Abdomen Exam: soft, normal bowel sounds, No tenderness, No mass Back Exam: normal inspection, normal range of motion, No CVA tenderness, No vertebral tenderness Extremity Exam: normal inspection, normal range of motion, pelvis stable Neurologic Exam: alert, oriented x 3, cooperative, normal mood/affect, nml cerebellar function, nml station & gait, sensation nml, No motor deficits Skin Exam: normal color, warm, dry, No rash Lymphatic Exam: No adenopathy SpO2 Interpretation: normal O2 Delivery: Room Air Ordered Tests: Active Orders 24 hr Category Date Time Status [employer] Drilling STAT Care 07/15/21 00:37 Ordered IV Insertion STAT Care 07/15/21 00:37 Ordered Pulse Oximetry (ED) STAT Care 07/15/21 00:37 Ordered CHEST 1 VIEW (PORTABLE) Stat Exams 07/15/21 00:37 Ordered CBC W DIFF Stat Lab 07/15/21 00:37 Ordered CMP Stat Lab 07/15/21 00:37 Ordered TROPONIN Q3H Lab 07/15/21 00:45 Ordered TROPONIN Q3H Lab 07/15/21 03:45 Ordered TROPONIN Q3H Lab 07/15/21 06:45 Ordered TROPONIN Q3H Lab 07/15/21 09:45 Ordered TROPONIN Q3H Lab 07/15/21 12:45 Ordered UA W/RFX UR CULTURE Stat Lab 07/15/21 00:37 Ordered - Departure Referrals: ANDREA GREENE MD [Primary Care Provider] -
[2021-07-15 03:29] LABS: Absolute Neutrophil Ct (ANC) 7.18 (1.4-6.9); BASOPHIL % 0.2 % (0.0-0.4); Basophil (Absolute #) 0.02 (0-0.4); Eosinophil % 0.9 % (0.00-5.0); Eosinophil (Absolute #) 0.07 (0-0.5); Hematocrit 42.7 % (35-47); Hemoglobin 13.9 gm/dl (12.0-16.0); Lymphocyte (Absolute #) 0.32 (1.0-4.6); Lymphocytes % 3.9 % (24.0-44.0); Mean Cell Volume 82.9 fl (78-100); Mean Corpuscular Hgb Concent. 32.6 g/dl (32-36); Mean Platelet Volume 10.7 fl (7.5-11.0); Monocyte (Absolute #) 0.52 (0.0-1.3); Monocytes % 6.4 % (0.0-12.0); Neutrophil % 88.6 % (36.0-66.0); Platelet Count 222 K/mm3 (150-450); Red Blood Count 5.15 M/mm3 (4.1-5.4); Red Cell Distribution Width 15.5 % (11.5-14.0); White Blood Count 8.1 K/mm3 (4.0-10.5)
[2021-07-15 03:33] LABS: Appearance CLEAR (CLEAR); Bacteria NONE SEEN /HPF (NEGATIVE); Bilirubin NEGATIVE (NEGATIVE); Blood NEGATIVE Ery/ul (0-5); Glucose NEGATIVE (NEGATIVE); Hyaline Casts 0-2 /LPF (0-2); Ketones NEGATIVE (NEGATIVE); Leukocyte Esterase TRACE (NEGATIVE); Mucus SLIGHT /HPF (NEGATIVE); Nitrite NEGATIVE (NEGATIVE); Protein,Urine Dip NEGATIVE (Negative); RBC 0-2 /HPF (0-2); Urobilinogen NEGATIVE mg/dL (0-1)
[2021-07-15 03:35] LABS: ALBUMIN 4.6 g/dL (3.5-5.0); ALKALINE PHOSPHATASE 92 U/L (38-126); BLOOD UREA NITROGEN 8 mg/dL (7-17); CHLORIDE 102 mmol/L (98-107); Calcium 9.6 mg/dL (8.4-10.2); Carbon Dioxide 23 mmol/L (22-30); Creatinine 1 0.58 mg/dL (0.52-1.04); EST GLOMERULAR FILTRATION RATE > 60.0 ML/MIN; Glucose 162 mg/dL (74-106); Potassium 3.9 mmol/L (3.5-5.1); SGOT/AST 27 U/L (14-36); SGPT/ALT 26 U/L (0-35); SODIUM 136 mmol/L (137-145); Total Protein 7.7 g/dL (6.3-8.2)
[2021-07-15 03:37] LABS: ANION GAP 14.9 MEQ/L (5-15)
--- NOTE | 2021-07-15 09:00 | XRAY ---
Indication: Short of breath. Positive Covid 19. Comparison: March 23, 2021. Portable chest remains clear. Heart not enlarged. Bony thorax intact again with mild osteopenia and degenerative changes. No new/acute findings.
== END 2021-07-15 04:19 | disposition home or self-care (01) ==
LOC: ED 00:22
DX: B34.9 Viral infection, unspecified (principal); Z20.822 Contact with and (suspected) exposure to COVID-19; R11.2 Nausea with vomiting, unspecified; E86.0 Dehydration; R00.0 Tachycardia, unspecified; J44.9 Chronic obstructive pulmonary disease, unspecified; E11.9 Type 2 diabetes mellitus without complications; R53.1 Weakness; R51.9 Headache, unspecified; E03.9 Hypothyroidism, unspecified; Z79.899 Other long term (current) drug therapy; Z79.891 Long term (current) use of opiate analgesic
CPT/HCPCS: 36415; 71045; 80053; 81001; 84484; 85025; 96374; 96375; 99284; J1100; J1885

== ENCOUNTER 2021-07-16 04:53 | Observation (INO) | payer MEDICAID ==
[2021-07-16] MEDS ORDERED: TYLENOL 325 MG PO STA (05:29)
[2021-07-16] MEDS ORDERED: Sodium Chloride 0.9% 1000 ML 1,000 ML IV STA (05:29)
[2021-07-16] MEDS ORDERED: Sodium Chloride 0.9% 1000 ML 1,000 ML ONE (05:47)
[2021-07-16] MEDS ORDERED: TYLENOL 325 MG ONE (05:47)
--- NOTE | 2021-07-16 05:50 | ERPHSYRPT ---
- History of Present Illness Source: patient Exam Limitations: no limitations Patient Subjective Stated Complaint: Patient states " I woke up and checked my temp at home with oral therm. and it read 102.9 and my told me I was going to ER." Triage Nursing Assessment: . Timing/Duration: day(s) (2) Fever Severity: moderate Fever Therapy REGIONAL OFFICE COORDINATOR: Acetaminophen Associated Symptoms: abdominal pain, cough, diaphoresis, headache, muscle aches, nausea/vomiting, rhinorrhea Hx Tetanus, Diphtheria Vaccination/Date Given: No Hx Influenza Vaccination/Date Given: Yes Hx Pneumococcal Vaccination/Date Given: No Immunizations Up to Date: Yes <MAJOR CROSS - Last Filed: 07/16/21 06:42> <BASIA PATRICIA - Last Filed: 07/16/21 07:57> - History of Present Illness Time Seen by Provider: 07/16/21 05:45 Physician History: Patient is a 61-year-old white female who presents with a complaint of fever. She was seen 24 hours ago and discharged home she has a who was just released from the Covid unit also a neighbor who was just released from the Covid unit. , according to the patient, had told her that if she had further fever to come to the ER and he was to be called so she could be admitted for monoclonal antibody therapy. She had a Covid test done on Sunday which reports positive this morning from the lab (MAJOR CROSS) Allergies/Adverse Reactions: No Known Drug Allergies Allergy (Verified 07/16/21 05:03) Home Medications: Alogliptin Benzoate [Alogliptin] 12.5 mg PO DAILY 01/17/17 [History] Carisoprodol 350 mg [Soma 350 mg] 1 tab PO TID 01/17/17 [History] Levothyroxine Sodium 50 Mcg [Synthroid 50 Mcg] 50 mcg PO DAILY 01/17/17 [History] Pioglitazone 30 mg [Actos 30 MG] 30 mg PO DAILY 01/17/17 [History] Travel Risk - International Travel Have you traveled outside of the country in past 3 weeks: No - Coronavirus Screening Are you exhibiting any of the following symptoms?: Yes Symptoms: Fever, Cough: New Onset, Vomiting/Diarrhea, Headaches/Body Aches/Fatigue Close contact with a COVID-19 positive Pt in past 14-21 Days: Yes - Vaccine Status Have you recieved a Covid-19 vaccination: No <MAJOR CROSS Filed: 07/16/21 06:42> - Review of Systems Constitutional: Fever, Chills, Lethargy, Weakness Eyes: No Symptoms Ears, Nose, & Throat: Nose Congestion Respiratory: Cough, Dyspnea, Dyspnea on Exertion (CHAPA) Cardiac: No Chest Pain, No Edema, No Syncope Abdominal/Gastrointestinal: Abdominal Pain, Nausea, No Vomiting, No Diarrhea Genitourinary Symptoms: No Dysuria Musculoskeletal: Arthralgias, Myalgias, No Back Pain, No Neck Pain Skin: No Rash Neurological: No Dizziness, No Focal Weakness, No Sensory Changes Psychological: No Symptoms Endocrine: No Symptoms All Other Systems: Reviewed and Negative <MAJOR CROSS Filed: 07/16/21 06:42> - Past Medical History Pertinent Past Medical History: Yes Neurological History: No Pertinent History ENT History: No Pertinent History Cardiac History: No Pertinent History Respiratory History: Asthma, COPD Endocrine Medical History: Diabetes Type II, Hypothyroidism Musculoskeletal History: Arthritis, Osteoarthritis GI Medical History: Gallbladder Disease History: No Pertinent History Psycho-Social History: No Pertinent History Female Reproductive Disorders: Menstrual Problems 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 - Past Surgical History Past Surgical History: Yes Neuro Surgical History: No Pertinent History Cardiac: No Pertinent History Respiratory: No Pertinent History Gastrointestinal: Cholecystectomy Genitourinary: No Pertinent History Musculoskeletal: Orthopedic Surgery Female Surgical History: Tubal Ligation, Lumpectomy Other Surgical History: thermal ablation, left knee scope - Social History Smoking Status: Never smoker Exposure to second hand smoke: No Drug Use: none Patient Lives Alone: No - Female History Hx Last Menstrual Period: Thermal Ablation Hx Now: No <MAJOR CROSS Filed: 07/16/21 06:42> - Physical Exam General Appearance: moderate distress, alert Eye Exam: PERRL/EOMI ENT Exam: normal ENT inspection, No pharyngeal erythema, No tonsillar exudate Neck Exam: supple, full range of motion, No meningismus Respiratory Exam: normal breath sounds, lungs clear, no respiratory distress Cardiovascular/Chest Exam: normal heart sounds, regular rate/rhythm, No murmur, No edema Gastrointestinal/Abdominal Exam: soft, non tender, no distention Extremity Exam: non-tender, normal range of motion, normal inspection, normal capillary refill Neurologic Exam: alert, oriented x 3, cooperative, wireless telegrapher II-XII nml as tested, normal mood/affect, sensation nml, No motor deficits Skin Exam: normal color, warm, dry, No rash SpO2 Interpretation: normal SpO2: 96 O2 Delivery: Room Air <MAJOR CROSS - Last Filed: 07/16/21 06:42> - Nursing Vital Signs Nursing Vital Signs: Initial Vital Signs Temperature 100.6 F 07/16/21 04:54 Pulse Rate 117 H 07/16/21 04:54 Respiratory Rate 22 07/16/21 04:54 Blood Pressure 146/92 07/16/21 04:54 O2 Sat by Pulse Oximetry 96 07/16/21 04:54 Pain Scale Pain Intensity 7 - Course Nursing assessment & vital signs reviewed: Yes EKG Interpreted by Me: RATE ([id number]), Sinus Tach, Left [place] Deviation, NORMAL INTERVALS, NORMAL QRS, Non-specific ST Changes - Radiology Exams Chest X-ray Interpretation: Interpreted by me, Negative <MAJOR CROSS - Last Filed: 07/16/21 06:42> Ordered Tests: Active Orders 24 hr Category Date Time Status Up Ad Juliann ROUTINE Activity 07/16/21 07:52 Active Admit as Inpatient ROUTINE Care 07/16/21 07:51 Active Metal Inspector ROUTINE Care 07/16/21 07:52 Active Metal Inspector STAT Care 07/16/21 05:32 Active EKG-ER Only STAT Care 07/16/21 05:29 Active IV Insertion STAT Care 07/16/21 05:29 Active Isolation, Initiate & Maintain Q6H Care 07/16/21 07:51 Active Pulse Oximetry (ED) STAT Care 07/16/21 05:29 Active Sequential Compression Device Q6H Care 07/16/21 07:51 Active Dane Hose, Apply ROUTINE Care 07/16/21 07:51 Active Vital Signs Q2H Care 07/16/21 07:51 Active House Regular Diet Diet 07/16/21 Breakfast Active CHEST 1 VIEW (PORTABLE) DAILY Exams 07/16/21 08:00 Ordered CHEST 1 VIEW (PORTABLE) Stat Exams 07/16/21 05:32 Completed BLOOD CULTURE Stat Lab 07/16/21 05:45 Received CBC W DIFF Routine Lab 07/16/21 07:51 Ordered CBC W DIFF Stat Lab 07/16/21 06:00 Completed CMP Routine Lab 07/16/21 07:51 Ordered CMP Stat Lab 07/16/21 06:00 Completed D-DIMER QUANTITATIVE Routine Lab 07/16/21 07:51 Ordered D-DIMER QUANTITATIVE Stat Lab 07/16/21 06:00 Completed LDH-LACTATE DEHYDROGENASE Stat Lab 07/16/21 06:00 Completed Lactic Acid Stat Lab 07/16/21 05:40 Completed PROCALCITONIN Stat Lab 07/16/21 06:00 Completed UA W/RFX UR CULTURE Stat Lab 07/16/21 06:02 Completed Respiratory Therapy Consult ROUTINE RT 07/16/21 07:51 Active Medication Summary Discontinued Medications Generic Name Dose Route Start Last Admin Trade Name Freq PRN Reason Stop Dose Admin Acetaminophen 650 mg 07/16/21 05:29 07/16/21 05:49 Tylenol 325 Mg PO 07/16/21 05:30 650 mg STAT STA Administration Acetaminophen Confirm 07/16/21 05:47 Tylenol 325 Mg Administered 07/16/21 05:48 Dose 650 mg .ROUTE .STK-MED ONE Sodium Chloride 1,000 mls @ 999 mls/hr 07/16/21 05:29 07/16/21 07:27 Sodium Chloride 0.9% 1000 Ml IV 07/16/21 06:29 Infused .Q1H1M STA Infusion Sodium Chloride Confirm 07/16/21 05:47 Sodium Chloride 0.9% 1000 Ml Administered 07/16/21 05:48 Dose 1,000 mls @ ud .ROUTE .STK-MED ONE Lab/Rad Data: Laboratory Result Diagrams 07/16/21 06:00 07/16/21 06:00 Laboratory Results 07/16/21 07/16/21 07/16/21 Range/Units 06:02 06:00 06:00 WBC (4.0-10.5) K/mm3 RBC (4.1-5.4) M/mm3 Hgb (12.0-16.0) gm/dl Hct (35-47) % MCV (78-100) fl MCH (26-32) pg MCHC (32-36) g/dl RDW (11.5-14.0) % Plt Count (150-450) K/mm3 MPV (7.5-11.0) fl Gran % (36.0-66.0) % Eos # (Auto) (0-0.5) Absolute Lymphs (auto) (1.0-4.6) Absolute Monos (auto) (0.0-1.3) Lymphocytes % (24.0-44.0) % Monocytes % (0.0-12.0) % Eosinophils % (0.00-5.0) % Basophils % (0.0-0.4) % Absolute Granulocytes (1.4-6.9) Basophils # (0-0.4) D-Dimer 968 H* (215-500) ng/mL Sodium (137-145) mmol/L Potassium (3.5-5.1) mmol/L Chloride (98-107) mmol/L Carbon Dioxide (22-30) mmol/L Anion Gap (5-15) MEQ/L BUN (7-17) mg/dL Creatinine (0.52-1.04) mg/dL Estimated GFR ML/MIN Glucose (74-106) mg/dL Lactic Acid (0.4-2.0) Calcium (8.4-10.2) mg/dL Total Bilirubin (0.2-1.3) mg/dL AST (14-36) U/L ALT (0-35) U/L Alkaline Phosphatase (38-126) U/L Lactate Dehydrogenase 159 (120-246) U/L Serum Total Protein (6.3-8.2) g/dL Albumin (3.5-5.0) g/dL Procalcitonin 0.118 H (0.030-0.080) ng/mL Urine Color YELLOW (YELLOW) Urine Appearance CLEAR (CLEAR) Urine pH 5.0 (5-6) Ur Specific [place] 1.015 (1.005-1.025) Urine Protein NEGATIVE (Negative) Urine Ketones NEGATIVE (NEGATIVE) Urine Blood NEGATIVE (0-5) Keith/ul Urine Nitrite NEGATIVE (NEGATIVE) Urine Bilirubin NEGATIVE (NEGATIVE) Urine Urobilinogen NEGATIVE (0-1) mg/dL Ur Leukocyte Esterase NEGATIVE (NEGATIVE) Urine WBC (Auto) NONE (0-5) /HPF Urine RBC (Auto) NONE (0-2) /HPF U Epithel Cells (Auto) NONE (FEW) /HPF Urine Bacteria (Auto) NONE (NEGATIVE) /HPF Urine Mucus (Auto) SLIGHT (NEGATIVE) /HPF Urine Culture Reflexed NO (NO) Urine Glucose NEGATIVE (NEGATIVE) mg/dL Slides for Path Review 07/16/21 07/16/21 07/16/21 Range/Units 06:00 06:00 05:40 WBC 4.9 (4.0-10.5) K/mm3 RBC 4.87 (4.1-5.4) M/mm3 Hgb 13.0 (12.0-16.0) gm/dl Hct 40.1 (35-47) % MCV 82.3 (78-100) fl MCH 26.7 (26-32) pg MCHC 32.4 (32-36) g/dl RDW 15.7 H (11.5-14.0) % Plt Count 191 (150-450) K/mm3 MPV 10.8 (7.5-11.0) fl Gran % 80.9 H (36.0-66.0) % Eos # (Auto) 0.01 (0-0.5) Absolute Lymphs (auto) 0.53 L (1.0-4.6) Absolute Monos (auto) 0.38 (0.0-1.3) Lymphocytes % 10.9 L (24.0-44.0) % Monocytes % 7.8 (0.0-12.0) % Eosinophils % 0.2 (0.00-5.0) % Basophils % 0.2 (0.0-0.4) % Absolute Granulocytes 3.92 (1.4-6.9) Basophils # 0.01 (0-0.4) D-Dimer (215-500) ng/mL Sodium 136 L (137-145) mmol/L Potassium 3.3 L (3.5-5.1) mmol/L Chloride 102 (98-107) mmol/L Carbon Dioxide 22 (22-30) mmol/L Anion Gap 14.8 (5-15) MEQ/L BUN 9 (7-17) mg/dL Creatinine 0.63 (0.52-1.04) mg/dL Estimated GFR > 60.0 ML/MIN Glucose 127 H (74-106) mg/dL Lactic Acid 1.0 (0.4-2.0) Calcium 8.9 (8.4-10.2) mg/dL Total Bilirubin 0.30 (0.2-1.3) mg/dL AST 38 H (14-36) U/L ALT 32 (0-35) U/L Alkaline Phosphatase 82 (38-126) U/L Lactate Dehydrogenase (120-246) U/L Serum Total Protein 7.0 (6.3-8.2) g/dL Albumin 4.1 (3.5-5.0) g/dL Procalcitonin (0.030-0.080) ng/mL Urine Color (YELLOW) Urine Appearance (CLEAR) Urine pH (5-6) Ur Specific [place] (1.005-1.025) Urine Protein (Negative) Urine Ketones (NEGATIVE) Urine Blood (0-5) Keith/ul Urine Nitrite (NEGATIVE) Urine Bilirubin (NEGATIVE) Urine Urobilinogen (0-1) mg/dL Ur Leukocyte Esterase (NEGATIVE) Urine WBC (Auto) (0-5) /HPF Urine RBC (Auto) (0-2) /HPF U Epithel Cells (Auto) (FEW) /HPF Urine Bacteria (Auto) (NEGATIVE) /HPF Urine Mucus (Auto) (NEGATIVE) /HPF Urine Culture Reflexed (NO) Urine Glucose (NEGATIVE) mg/dL Slides for Path Review YES - Progress Progress: unchanged <MAJOR CROSS - Last Filed: 07/16/21 06:42> - Progress Discussed with Dr.: Other (Dr Nash Hayes) Will see patient in: hospital (full admit) Counseled pt/family regarding: lab results, diagnosis, need for follow-up, rad results <BASIA PATRICIA - Last Filed: 07/16/21 07:57> - Departure Departure Disposition: Observation Critical Care Time: No <MAJOR CROSS - Last Filed: 07/16/21 06:42> - Departure Departure Disposition: In-patient Admission Critical Care Time: Yes Critical Care Time(excluding separately billable procedures): Critical 30-74 mins <BASIA PATRICIA - Last Filed: 07/16/21 07:57> - Departure Clinical Impression: COVID-19 Condition: Fair Referrals: ANDREA GREENE MD [Primary Care Provider] -
[2021-07-16 06:10] LABS: Absolute Neutrophil Ct (ANC) 3.92 (1.4-6.9); BASOPHIL % 0.2 % (0.0-0.4); Basophil (Absolute #) 0.01 (0-0.4); Eosinophil % 0.2 % (0.00-5.0); Eosinophil (Absolute #) 0.01 (0-0.5); Hematocrit 40.1 % (35-47); Lymphocyte (Absolute #) 0.53 (1.0-4.6); Lymphocytes % 10.9 % (24.0-44.0); Mean Cell Volume 82.3 fl (78-100); Mean Corpuscular Hemoglobin 26.7 pg (26-32); Mean Corpuscular Hgb Concent. 32.4 g/dl (32-36); Mean Platelet Volume 10.8 fl (7.5-11.0); Monocyte (Absolute #) 0.38 (0.0-1.3); Monocytes % 7.8 % (0.0-12.0); Neutrophil % 80.9 % (36.0-66.0); Platelet Count 191 K/mm3 (150-450); Red Blood Count 4.87 M/mm3 (4.1-5.4); Red Cell Distribution Width 15.7 % (11.5-14.0); White Blood Count 4.9 K/mm3 (4.0-10.5)
[2021-07-16 06:14] LABS: Appearance CLEAR (CLEAR); Bilirubin NEGATIVE (NEGATIVE); Blood NEGATIVE Ery/ul (0-5); Glucose NEGATIVE (NEGATIVE); Ketones NEGATIVE (NEGATIVE); Leukocyte Esterase NEGATIVE (NEGATIVE); Mucus SLIGHT /HPF (NEGATIVE); Nitrite NEGATIVE (NEGATIVE); Protein,Urine Dip NEGATIVE (Negative); Specific Gravity 1.015 (1.005-1.025); Urobilinogen NEGATIVE mg/dL (0-1)
[2021-07-16 06:33] LABS: ALBUMIN 4.1 g/dL (3.5-5.0); ALKALINE PHOSPHATASE 82 U/L (38-126); ANION GAP 14.8 MEQ/L (5-15); BLOOD UREA NITROGEN 9 mg/dL (7-17); CHLORIDE 102 mmol/L (98-107); Calcium 8.9 mg/dL (8.4-10.2); Carbon Dioxide 22 mmol/L (22-30); Creatinine 1 0.63 mg/dL (0.52-1.04); EST GLOMERULAR FILTRATION RATE > 60.0 ML/MIN; Glucose 127 mg/dL (74-106); Potassium 3.3 mmol/L (3.5-5.1); SGOT/AST 38 U/L (14-36); SGPT/ALT 32 U/L (0-35); SODIUM 136 mmol/L (137-145)
[2021-07-16 06:49] LABS: PROCALCITONIN 0.118 ng/mL (0.030-0.080)
[2021-07-16 07:22] LABS: Slide Review 1 YES
--- NOTE | 2021-07-16 07:39 | XRAY ---
Indication: Fever, cough, and congestion. Comparison: One day earlier. Portable chest remains inflated and clear. Heart within normal limits for AP portable technique. No new/acute findings.
[2021-07-16] MEDS ORDERED: TYLENOL 325 MG PO PRN (07:51)
[2021-07-16] MEDS ORDERED: VENTOLIN COMMON CANISTER IH PRN (07:51)
[2021-07-16] MEDS ORDERED: Zofran 4 MG/2 ML VIAL IV ONE (08:05)
[2021-07-16] MEDS ORDERED: Zofran 4 MG/2 ML VIAL ONE (08:12)
[2021-07-16] MEDS ORDERED: Sodium Chloride 0.9% 1000 ML 1,000 ML IV ONE (09:24)
[2021-07-16] MEDS ORDERED: TORAdol 30 mg Injection IJ ONE (09:24)
[2021-07-16] MEDS ORDERED: Decadron 4 MG INJ IV ONE (09:24)
[2021-07-16] MEDS ORDERED: Compazine 10 MG/2 ML IJ ONE (09:24)
[2021-07-16] MEDS ORDERED: PHENERGAN 25 MG PO PRN (10:08)
[2021-07-16] MEDS ORDERED: NORCO 5/325 MG PO PRN (10:08)
[2021-07-16] MEDS ORDERED: Ativan 1 MG PO PRN (10:34)
[2021-07-16] MEDS ORDERED: Zofran 4 MG/2 ML VIAL IV PRN (10:42)
[2021-07-16] MEDS ORDERED: HYDROCODONE-CHLORPHEN ER SUSP PO PRN (10:43)
[2021-07-16] MEDS ORDERED: HUMALOG SQ PRN (10:45)
[2021-07-16] MEDS ORDERED: Actos 30 MG PO SCH (11:00)
[2021-07-16] MEDS ORDERED: Januvia 50 MG PO SCH (11:00)
[2021-07-16] MEDS: ENOXAPARIN SODIUM SQ SCH (11:26)
[2021-07-16] MEDS: DECADRON 10MG INJ. IV SCH (11:26)
[2021-07-16] MEDS: OLUMIANT PO SCH (11:27)
[2021-07-16] MEDS: TYLENOL EXTRA STRENGTH 500 MG PO PRN ×2 (11:30→17:13)
[2021-07-16] MEDS: SODIUM CHLORIDE 0.9% W/ 40 mEq KCL 1000ML 1,000 ML IV SCH ×2 (11:31→22:50)
[2021-07-16] MEDS ORDERED: REMDESIVIR 200 MG in Sodium Chloride 0.9% 250 ML 250 ML IV ONE (12:00)
[2021-07-16] MEDS: SYNTHROID 50 MCG PO SCH (12:29)
[2021-07-16] MEDS: SOMA 350 MG PO SCH ×3 (12:29→21:28)
[2021-07-17 06:32] LABS: INR 1.08 (0.8-3.0); PROTIME 12.8 SECONDS (9.4-12.5)
[2021-07-17 06:57] LABS: ALBUMIN 3.6 g/dL (3.5-5.0); ALKALINE PHOSPHATASE 57 U/L (38-126); ANION GAP 12.8 MEQ/L (5-15); BLOOD UREA NITROGEN 10 mg/dL (7-17); CHLORIDE 106 mmol/L (98-107); Calcium 8.5 mg/dL (8.4-10.2); Carbon Dioxide 26 mmol/L (22-30); Creatinine 1 0.59 mg/dL (0.52-1.04); EST GLOMERULAR FILTRATION RATE > 60.0 ML/MIN; Glucose 88 mg/dL (74-106); SGOT/AST 33 U/L (14-36); SGPT/ALT 29 U/L (0-35); SODIUM 141 mmol/L (137-145); Total Protein 6.4 g/dL (6.3-8.2)
[2021-07-17] MEDS: SOMA 350 MG PO SCH ×3 (09:13→21:12)
[2021-07-17] MEDS: DECADRON 10MG INJ. IV SCH (09:14)
[2021-07-17] MEDS: SYNTHROID 50 MCG PO SCH (09:14)
[2021-07-17] MEDS: OLUMIANT PO SCH (09:14)
[2021-07-17] MEDS: ENOXAPARIN SODIUM SQ SCH (09:15)
[2021-07-17] MEDS: REMDESIVIR 100 MG in Sodium Chloride 0.9% 100 ML BAG 100 ML IV SCH (09:24)
[2021-07-17] MEDS ORDERED: NON-FORMULARY BULK ITEM PO SCH (10:00)
[2021-07-17] MEDS: PATIENT OWN MEDICATION PO SCH ×3 (12:49→21:19)
--- NOTE | 2021-07-17 19:42 | XRAY ---
Indication: Positive Covid 19 pneumonia. Comparison: July 16, 2021. Portable chest remains clear. Heart and mediastinal structures are within normal limits. No new/acute findings. Comment: Preliminary interpretation made by C. No critical discrepancy.
[2021-07-18 05:31] LABS: INR 0.98 (0.8-3.0); PROTIME 11.6 SECONDS (9.4-12.5)
[2021-07-18 05:34] LABS: ALBUMIN 3.6 g/dL (3.5-5.0); ALKALINE PHOSPHATASE 63 U/L (38-126); ANION GAP 12.4 MEQ/L (5-15); BLOOD UREA NITROGEN 11 mg/dL (7-17); CHLORIDE 104 mmol/L (98-107); Calcium 8.6 mg/dL (8.4-10.2); Carbon Dioxide 26 mmol/L (22-30); Creatinine 1 0.56 mg/dL (0.52-1.04); EST GLOMERULAR FILTRATION RATE > 60.0 ML/MIN; Glucose 83 mg/dL (74-106); Potassium 3.4 mmol/L (3.5-5.1); SGOT/AST 31 U/L (14-36); SGPT/ALT 27 U/L (0-35); SODIUM 139 mmol/L (137-145); Total Protein 6.3 g/dL (6.3-8.2)
[2021-07-18 08:25] VITALS: BP 116/60
--- NOTE | 2021-07-18 08:29 | HP ---
CHIEF COMPLAINT: Nausea, vomiting multiple times for two days, shortness of breath and cough. COVID positive. HISTORY OF PRESENT ILLNESS: A 61-year-old white female whose was admitted for a few days with COVID. He actually had one vaccine and did well. She did not take the vaccine although she does have underlying chronic obstructive pulmonary disease. She has not traveled, wears a mask outside and said she does not know where she got it but she probably got it from her who goes to the gym and unfortunately they do not use a mask mandate at our gymnasium. She had fever up to 103F at night and her finally drug her in here. 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 She had a pretty bad headache and myalgia. The vomiting has really been bad. TRAVEL RISK: No travel out of the formerly [facility]. CORONAVIRUS SCREENING: COVID positive. VACCINE STATUS: No pneumonia shot. She may have gotten a tetanus last year. No COVID vaccine. MEDICATIONS: Alogliptin 12.5 q.d. for diabetes, carisoprodol 350 t.i.d. for back pain, Synthroid 50 q.d. for hypothyroidism. She also takes Actos. ALLERGIES: NKDA. PAST MEDICAL HISTORY: Pertinent for chronic obstructive pulmonary disease, diabetes mellitus type II, hypothyroidism, osteoarthritis of back and knees. PAST SURGICAL HISTORY: She had a cholecystectomy I believe. Tubal ligation. Breast lump removed and benign. Knee scope. SOCIAL HISTORY: The patient has never smoked although she has some chronic obstructive pulmonary disease. Drug use: None. She was a very nice employee and she decided to retire, lives with her . REVIEW OF SYSTEMS: HEENT: Headache, fever, chills, achiness for three days. CVS: No chest pain. No history of heart problems. RESPIRATORY: Short of breath. ABDOMEN: Nausea and vomiting. Sore abdominal from vomiting. Sore ribs from vomiting. SKIN: No rash. EXTREMITIES: The patient is ambulatory slowly. MUSCULOSKELETAL: No problems. NEUROLOGIC: She is tired, weak, a little bit dizzy when she stands too quickly otherwise none. PSYCHOLOGIC: No symptoms. No diseases. PHYSICAL EXAMINATION: The patient is an alert, orientated, cooperative, pleasant, looks moderately ill. VITAL SIGNS: Temperature 100.6F, pulse 110, respirations 24, blood pressure 130/70. O2 saturation on room air 96%. Pain intensity 2. HEENT: Pupils equal and reactive to light. Seems to hear. She said she tastes okay. CHEST: Few wheezes bilateral. CVS: No murmurs or gallops. ABDOMEN: Tender all over. Decreased bowel sounds. EXTREMITIES: Tenderness over the knees. No rash. LAB DATA AND TESTS: White count 4.9, hemoglobin 13. Electrolytes show her potassium low at 3.3. D-dimer 968. Chest x-ray is normal. IMPRESSION: 1) The patient is dehydrated from vomiting from COVID gastritis. 2) She has upper respiratory COVID with cough. Normal chest x-ray and mildly elevated D-dimer. PLAN: The patient will be treated with IV fluids, anti-nausea medicine, Ativan for anxiety, home medicines, Remdesivir, Decadron, antibodies, anticoagulated. PROGNOSIS: Fair.
[2021-07-18] MEDS: REMDESIVIR 100 MG in Sodium Chloride 0.9% 100 ML BAG 100 ML IV SCH (09:11)
[2021-07-18] MEDS: OLUMIANT PO SCH (09:12)
[2021-07-18] MEDS: SYNTHROID 50 MCG PO SCH (09:12)
[2021-07-18] MEDS: DECADRON 10MG INJ. IV SCH (09:14)
[2021-07-18] MEDS: SOMA 350 MG PO SCH (09:14)
[2021-07-18] MEDS: ENOXAPARIN SODIUM SQ SCH (09:15)
[2021-07-18] MEDS: PATIENT OWN MEDICATION PO SCH (09:15)
[2021-07-18 10:04] VITALS: PULSE 82; O2SAT 91
--- NOTE | 2021-07-18 13:37 | DS ---
ADMISSION DIAGNOSES: 1) COVID gastroenteritis. 2) COVID pneumonia. 3) Back pain. 4) Hypothyroidism. 5) Diabetes mellitus. DISCHARGE DIAGNOSES: 1) COVID GASTROENTERITIS. 2) COVID PNEUMONIA. 3) BACK PAIN. 4) HYPOTHYROIDISM. 5) DIABETES MELLITUS. HISTORY: The patient came in moderately severe distress after vomiting for two days. Her had been in he left pretty quickly. However, she has not been doing well at home with fever up to 103F. I believe she had gotten some antibodies as an outpatient also. PAST SURGICAL HISTORY: She has had a cholecystectomy, knee surgery. SOCIAL HISTORY: She is retired from working at [employer] in [place]. PHYSICAL EXAMINATION: She looked acutely ill, mildly hypoxic and required 2 liters of oxygen to start with and febrile. CHEST: Chest had some crackles at the bases. LAB DATA AND TESTS: D-dimer elevated up 1,000 and came down. She was of course anticoagulated and put on Decadron. Blood sugars were controlled. Chest x-ray was actually clear on 07/17/2021. HOSPITAL COURSE: The patient's cough is really tremendous from the day she was here until the day of discharge had pretty well gone away. Her inability to eat went away after 36 hours and she can eat now but cannot quite taste normally. She feels much better. She wants to return home. is there to help her. She is ambulatory. Chest today is clear. Heart sounds normal. Abdomen no tenderness. She will be discharged home on oxygen at 2 liters nasal cannula, Decadron 40 x5, 20 x5, 10 x5. Told her to be ambulatory. Isolate for ten days. Follow up with Dr. Villarreal if any problems. PROGNOSIS: Good.
== END 2021-07-18 11:45 | disposition home or self-care (01) ==
LOC: ED 04:53 → OBSVTOIN 09:23 → MED SURG 09:23 → INTOOBSV 09:23
PROVIDERS: ADMIT Family Medicine; ATTEND Family Medicine
DX: U07.1 COVID-19 (principal); K52.9 Noninfective gastroenteritis and colitis, unspecified; J12.82 Pneumonia due to coronavirus disease 2019; E86.0 Dehydration; E11.9 Type 2 diabetes mellitus without complications; Z79.899 Other long term (current) drug therapy; R51.9 Headache, unspecified; R11.10 Vomiting, unspecified; R53.1 Weakness; E03.9 Hypothyroidism, unspecified; M54.9 Dorsalgia, unspecified; J44.9 Chronic obstructive pulmonary disease, unspecified; R79.1 Abnormal coagulation profile; R42 Dizziness and giddiness
CPT/HCPCS: 36000; 36415; 71045; 80053; 81001; 82947; 83036; 83605; 83615; 84145; 85025; 85379; 85610; 86140; 87040; 93005; 93041; 93268; 94760; 94762; 96360; 96374; 99285; 99291; G0378; J1100; J1650; J1885; J2405; A9270-GY

== ENCOUNTER 2022-12-03 10:08 | Emergency (ER) | payer OTHER ==
[2022-12-03 10:23] VITALS: BP 122/91; PULSE 97; O2SAT 100
--- NOTE | 2022-12-03 10:29 | ERPHSYRPT ---
- History of Present Illness Time Seen by Provider: 12/03/22 10:20 Source: patient Exam Limitations: no limitations Patient Subjective Stated Complaint: Cat bite Triage Nursing Assessment: Patient ambulated back to ED and transferred self to bed. Patient A+O X3. Patient's skin pink, warm and dry. Patient complains of left hand pain 5/10. Patient states she feeds a kitten outside her house and yesterday she bent down and it bit her left hand. Patient's left hand noted to be red, warm and swollen. Patient states kitten is unvaccinated. Physician History: Patient is a 62-year-old white female who presents with a cat bite to the left hand. Numerous puncture nash noted on the dorsum and on the lateral aspect of the hand. The cat is a feral cat that was born in her barn which she feeds when she went to feed it today she suffered a bite. The cat has not been vaccinated. Family was encouraged to quarantine the cat and if not possible to do that or if the cat is lost the patient will need rabies prophylaxis. Occurred: yesterday Method of Injury: other (Cat bite) Quality: aching, throbbing, other (Hurts to move her fingers.) Severity of Pain-Max: moderate Severity of Pain-Current: moderate Extremities Pain Location: hand: left Modifying Factors: Improves With: movement Associated Symptoms: none Allergies/Adverse Reactions: No Known Drug Allergies Allergy (Verified 12/03/22 10:14) Home Medications: Carisoprodol 350 mg [Soma 350 mg] 1 tab PO TID 01/17/17 [History] Levothyroxine Sodium 50 Mcg [Synthroid 50 Mcg] 50 mcg PO DAILY 01/17/17 [History] Lisinopril 20 mg [Zestril 20 MG] 1 tab PO DAILY 12/03/22 [History] Hx Tetanus, Diphtheria Vaccination/Date Given: Yes (2021) Hx Influenza Vaccination/Date Given: Yes Hx Pneumococcal Vaccination/Date Given: No Immunizations Up to Date: Yes Travel Risk - International Travel Have you traveled outside of the country in past 3 weeks: No - Coronavirus Screening Are you exhibiting any of the following symptoms?: No Close contact with a COVID-19 positive Pt in past 14-21 Days: No - Vaccine Status Have you recieved a Covid-19 vaccination: Yes Travel Rn Or: Moderna - Vaccination Dates Date of 2cond Vaccination (if applicable): na - Review of Systems Constitutional: No Fever, No Chills Eyes: No Symptoms Ears, Nose, & Throat: No Symptoms Respiratory: No Cough, No Dyspnea Cardiac: No Chest Pain, No Edema, No Syncope Abdominal/Gastrointestinal: No Abdominal Pain, No Nausea, No Vomiting, No Diarrhea Genitourinary Symptoms: No Dysuria Musculoskeletal: Joint Pain, Joint Swelling, No Back Pain, No Neck Pain Skin: Other, No Rash Neurological: No Dizziness, No Focal Weakness, No Sensory Changes Psychological: No Symptoms Endocrine: No Symptoms All Other Systems: Reviewed and Negative - Past Medical History Pertinent Past Medical History: Yes Neurological History: No Pertinent History ENT History: No Pertinent History Cardiac History: No Pertinent History Respiratory History: Asthma, COPD Endocrine Medical History: Diabetes Type II, Hypothyroidism Musculoskeletal History: Arthritis, Osteoarthritis GI Medical History: Gallbladder Disease History: No Pertinent History Psycho-Social History: No Pertinent History Female Reproductive Disorders: Breast Cancer, Menstrual Problems 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 - Past Surgical History Past Surgical History: Yes Neuro Surgical History: No Pertinent History Cardiac: No Pertinent History Respiratory: No Pertinent History Gastrointestinal: Cholecystectomy Genitourinary: No Pertinent History Musculoskeletal: Orthopedic Surgery Female Surgical History: Tubal Ligation, Lumpectomy Other Surgical History: thermal ablation, left knee scope - Social History Smoking Status: Never smoker Exposure to second hand smoke: No Drug Use: none Patient Lives Alone: No - Nursing Vital Signs Nursing Vital Signs: Initial Vital Signs Temperature 97.8 F 12/03/22 10:18 Pulse Rate 97 H 12/03/22 10:18 Respiratory Rate 19 12/03/22 10:18 Blood Pressure 122/91 12/03/22 10:18 O2 Sat by Pulse Oximetry 100 12/03/22 10:18 Pain Scale Pain Intensity 5 - Physical Exam General Appearance: mild distress, alert Eyes, Ears, Nose, Throat Exam: moist mucous membranes Neck Exam: non-tender, supple Cardiovascular/Respiratory Exam: chest non-tender, normal breath sounds, regular rate/rhythm, no respiratory distress Abdominal Exam: non-tender, No guarding Back Exam: normal inspection, No vertebral tenderness Hand Exam: soft tissue tenderness (There is swelling of the dorsum of the left hand with numerous puncture wounds.), swelling Neuro/Tendon Exam: normal sensation, normal motor functions Mental Status Exam: alert, oriented x 3, cooperative Skin Exam: normal color, warm, dry SpO2 Interpretation: normal SpO2: 100 O2 Delivery: Room Air - Course Nursing assessment & vital signs reviewed: Yes - Radiology Exams Left Hand X-ray Interpretation: Interpreted by me (Soft tissue swelling only no bony injury no foreign bodies) Ordered Tests: Active Orders 24 hr Category Date Time Status HAND (MINIMUM 3 VIEWS) Stat Exams 12/03/22 10:22 Ordered - Progress Progress: unchanged, pain not gone completely Medical Desision Making - Diagnostic Testing Radiological Interpretation: Interpreted by me (X-ray shows soft tissue swelling no foreign bodies no bony injury apparent) - Risk of complications Low Risk: Low risk of morbidity from additional dx testing or treatment - Departure Departure Disposition: Home Clinical Impression: Animal bite of left hand Condition: Stable Critical Care Time: No Referrals: ANDREA GREENE MD [Primary Care Provider] - Follow up/PCP as directed Instructions: Animal Bites (DC) Prescriptions: Amox Tr/Potass Clav. 875 mg [Augmentin 875-125 Tablet] 875 mg PO BID 10 Days #20 tablet
--- NOTE | 2022-12-03 19:42 | XRAY ---
Indication: Pain and swelling following cat bite. Comparison: June 10, 2013 3 view left hand now demonstrates osteopenia and mild/moderate degenerative changes all IP joints. New mild posterior soft tissue swelling with tiny subcutaneous emphysema. No other bony, articular, or soft tissue abnormalities.
== END 2022-12-03 11:02 | disposition home or self-care (01) ==
LOC: ED 10:08
DX: S60.572A Other superficial bite of hand of left hand, initial encounter (principal); W55.01XA Bitten by cat, initial encounter; Y93.K9 Activity, other involving animal care; E11.9 Type 2 diabetes mellitus without complications; Z79.899 Other long term (current) drug therapy
CPT/HCPCS: 73130; 99282

== ENCOUNTER 2023-11-26 03:24 | Emergency (ER) | payer MEDICARE ==
[2023-11-26 03:43] VITALS: TEMP 97.6
[2023-11-26] MEDS ORDERED: Sodium Chloride 0.9% 1000 ML 1,000 ML ONE ×2 (03:51→05:06)
[2023-11-26] MEDS ORDERED: Zofran 4 MG/2 ML VIAL ONE (03:51)
[2023-11-26] MEDS ORDERED: MORPHINE SULFATE 4 MG INJ ONE (03:51)
[2023-11-26] MEDS ORDERED: PROTONIX 40 MG IV IV ONE (03:51)
--- NOTE | 2023-11-26 03:52 | ERPHSYRPT ---
- History of Present Illness Time Seen by Provider: 11/26/23 03:25 Historian: patient Exam Limitations: no limitations Patient Subjective Stated Complaint: pt states "I have been sick since sunday. My son came over and was sick with a fever. I started coughing and having a fever and now I can't stop throwing up." Triage Nursing Assessment: pt ambulatory to bed by self with stand by assist, pt alert and oriented x3, skin pwd, pt c/o cough, fever, and vomiting since sunday, pt is afebrile currently, pt is tachycardic in the 140-150s. Physician History: 63-year-old female presented in the ER with complains of sick feeling for the last couple of days. Patient reported initially started as a cough congestion followed by nausea abdominal pain vomiting and fever chills. Patient reports multiple episodes of nonprojectile, nonbilious vomiting for last 2 days and is unable to hold much down. Denies any diarrhea. Reports moderate intensity cramping generalized in the abdomen which is aggravated with vomiting. No hematemesis. Reports bouts of coughing, wet-to-dry without difficulty breathing. Patient is tachycardic with heart rate in 150s on presentation. She has taken Tylenol and NSAIDs earlier tonight and is currently afebrile. Allergies/Adverse Reactions: No Known Drug Allergies Allergy (Verified 11/26/23 03:29) Home Medications: Carisoprodol 350 mg [Soma 350 mg] 1 tab PO TID 01/17/17 [History] Levothyroxine Sodium 50 Mcg [Synthroid 50 Mcg] 50 mcg PO DAILY 01/17/17 [History] Lisinopril 20 mg [Zestril 20 MG] 1 tab PO DAILY 12/03/22 [History] Hydrocodone Bit/Acetaminophen [Granite 5/325Mg] 1 tab PO TID 11/26/23 [History] Metformin HCl 500 mg [Glucophage 500 MG] 1,000 mg PO BID 11/26/23 [History] Promethazine HCl 12.5 mg PO TID PRN 11/26/23 [History] Hx Tetanus, Diphtheria Vaccination/Date Given: Yes (2021) Hx Influenza Vaccination/Date Given: Yes Hx Pneumococcal Vaccination/Date Given: No Immunizations Up to Date: Yes Travel Risk - International Travel Have you traveled outside of the country in past 3 weeks: No - Coronavirus Screening Are you exhibiting any of the following symptoms?: Yes Symptoms: Fever, Cough: New Onset, Vomiting/Diarrhea Close contact with a COVID-19 positive Pt in past 14-21 Days: No - Vaccine Status Have you recieved a Covid-19 vaccination: Yes Allopathic Doctor: Moderna - Vaccination Dates Date of 2cond Vaccination (if applicable): na - Review of Systems Constitutional: Fever, Chills, Fatigue, Weakness Eyes: No Symptoms Ears, Nose, & Throat: No Symptoms Respiratory: Cough Cardiac: No Symptoms Abdominal/Gastrointestinal: Abdominal Pain, Nausea, Vomiting Genitourinary Symptoms: No Symptoms Musculoskeletal: Myalgias Skin: No Symptoms Neurological: No Symptoms Psychological: No Symptoms Endocrine: No Symptoms Hematologic/Lymphatic: No Symptoms Immunological/Allergic: No Symptoms - Past Medical History Pertinent Past Medical History: Yes Neurological History: No Pertinent History ENT History: No Pertinent History Cardiac History: High Cholesterol, Hypertension Respiratory History: Asthma, COPD Endocrine Medical History: Diabetes Type II, Hypothyroidism Musculoskeletal History: Arthritis, Osteoarthritis GI Medical History: Gallbladder Disease History: No Pertinent History Psycho-Social History: No Pertinent History Female Reproductive Disorders: Breast Cancer, Menstrual Problems 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 - Past Surgical History Past Surgical History: Yes Neuro Surgical History: No Pertinent History Cardiac: No Pertinent History Respiratory: No Pertinent History Gastrointestinal: Cholecystectomy Genitourinary: No Pertinent History Musculoskeletal: Orthopedic Surgery Female Surgical History: Lumpectomy, Other Other Surgical History: thermal ablation, left knee scope - Social History Smoking Status: Never smoker Exposure to second hand smoke: No Drug Use: none Patient Lives Alone: No - Nursing Vital Signs Nursing Vital Signs: Initial Vital Signs Pulse Rate 145 H 11/26/23 03:31 Respiratory Rate 21 11/26/23 03:31 Blood Pressure 156/108 11/26/23 03:31 O2 Sat by Pulse Oximetry 97 11/26/23 03:31 Pain Scale Pain Intensity 7 - Physical Exam General Appearance: no apparent distress, alert Eye Exam: PERRL/EOMI Ears, Nose, Throat Exam: moist mucous membranes, pharyngeal erythema Neck Exam: normal inspection, non-tender, supple, full range of motion Respiratory Exam: normal breath sounds, lungs clear Cardiovascular Exam: normal heart sounds, tachycardia Gastrointestinal/Abdomen Exam: soft, normal bowel sounds, tenderness (Gene ralized tenderness with no guarding or rebound tenderness) Extremity Exam: normal inspection, normal range of motion Neurologic Exam: alert, oriented x 3, cooperative, technical professional II-XII nml as tested Skin Exam: normal color SpO2 Interpretation: normal SpO2: 99 O2 Delivery: Room Air - Course EKG Interpreted by Me: RATE, Sinus Tach, NORMAL AXIS, NORMAL INTERVALS, Non- specific ST Changes Ordered Tests: Active Orders 24 hr Category Date Time Status EKG-ER Only STAT Care 11/26/23 03:47 Active IV Insertion STAT Care 11/26/23 03:47 Active NPO (ED) STAT Care 11/26/23 03:47 Active ABDOMEN AND PELVIS W/0 CONTRAS [CT] Stat Exams 11/26/23 03:48 Completed CHEST WITHOUT CONTRAST [CT] Stat Exams 11/26/23 03:49 Completed CBC W DIFF Stat Lab 11/26/23 03:57 Completed CMP Stat Lab 11/26/23 03:57 Completed LIPASE Stat Lab 11/26/23 03:57 Completed Lactic Acid Stat Lab 11/26/23 04:15 Completed MAGNESIUM Stat Lab 11/26/23 03:57 Completed TROPONIN Q4H Lab 11/26/23 03:57 Completed TROPONIN Q4H Lab 11/26/23 08:00 Ordered TROPONIN Q4H Lab 11/26/23 12:00 Ordered UA W/RFX UR CULTURE Stat Lab 11/26/23 05:41 Completed VBG [VENOUS BLOOD GAS] Stat Lab 11/26/23 04:15 Completed Medication Summary Generic Name Dose Route Start Last Admin Trade Name Freq PRN Reason Stop Dose Admin Sodium Chloride 1,000 mls @ 999 mls/hr 11/26/23 05:15 11/26/23 05:10 Sodium Chloride 0.9% 1000 Ml IV 12/26/23 05:14 999 mls/hr .Q1H1M VIC Administration Discontinued Medications Generic Name Dose Route Start Last Admin Trade Name Freq PRN Reason Stop Dose Admin Sodium Chloride 1,000 mls @ 999 mls/hr 11/26/23 03:47 11/26/23 05:13 Sodium Chloride 0.9% 1000 Ml IV 11/26/23 04:47 Infused .Q1H1M STA Infusion Sodium Chloride Confirm 11/26/23 03:51 Sodium Chloride 0.9% 1000 Ml Administered 11/26/23 03:52 Dose 1,000 mls @ ud .ROUTE .STK-MED ONE Morphine Sulfate 4 mg 11/26/23 03:47 11/26/23 03:56 Morphine Sulfate 4 Mg/Ml Injection IV 11/26/23 03:48 4 mg STAT ONE Administration Morphine Sulfate Confirm 11/26/23 03:51 Morphine Sulfate 4 Mg/Ml Injection Administered 11/26/23 03:52 Dose 4 mg .ROUTE .STK-MED ONE Ondansetron HCl 4 mg 11/26/23 03:47 11/26/23 03:56 Ondansetron Hcl 4 Mg/2 Ml Vial IV 11/26/23 03:48 4 mg STAT ONE Administration Ondansetron HCl Confirm 11/26/23 03:51 Ondansetron Hcl 4 Mg/2 Ml Vial Administered 11/26/23 03:52 Dose 4 mg .ROUTE .STK-MED ONE Pantoprazole Sodium 40 mg 11/26/23 03:47 11/26/23 03:56 Pantoprazole 40 Mg Vial IV 11/26/23 03:48 40 mg STAT ONE Administration Pantoprazole Sodium Confirm 11/26/23 03:51 Pantoprazole 40 Mg Vial Administered 11/26/23 03:52 Dose 40 mg IV .STK-MED ONE Lab/Rad Data: Laboratory Result Diagrams 11/26/23 03:57 11/26/23 03:57 Laboratory Results 11/26/23 11/26/23 11/26/23 Range/Units 05:41 04:15 04:15 WBC (4.0-10.5) x10^3/uL RBC (4.1-5.4) x10^6/uL Hgb (12.0-16.0) g/dL Hct (35-47) % MCV (78-100) fL MCH (26-32) pg MCHC (32-36) g/dL RDW (11.5-14.0) % Plt Count (150-450) x10^3/uL MPV (7.5-11.0) fL Gran % (36.0-66.0) % Immature Gran % (Auto) (0.00-0.4) % Nucleat RBC Rel Count (0.00-0.1) % Eos # (Auto) (0-0.5) x10^3/uL Immature Gran # (Auto) (0.00-0.03) x10^3u/L Absolute Lymphs (auto) (1.0-4.6) x10^3/uL Absolute Monos (auto) (0.0-1.3) x10^3/uL Absolute Nucleated RBC (0.00-0.01) x10^3u/L Lymphocytes % (24.0-44.0) % Monocytes % (0.0-12.0) % Eosinophils % (0.00-5.0) % Basophils % (0.0-0.4) % Absolute Granulocytes (1.4-6.9) x10^3/uL Basophils # (0-0.4) x10^3/uL pO2/FiO2 Ratio 21.0 % VBG pH 7.50 H (7.32-7.42) VBG pCO2 at Pat Temp 32 L (42-55) mm/Hg VBG pO2 at Pat Temp 42 H (25-40) mm/Hg VBG HCO3 25.0 (22-28) meq/L VBG O2 Sat (Naz) 78.4 L (95-100) VBG Base Excess 2.4 H (-2.0-2.0) VBG Hemoglobin 14.0 VBG Carboxyhemoglobin 3.2 (0.0-6.9) % T HGB POC Potassium 3.9 (3.5-5.1) Sodium (137-145) mmol/L Potassium (3.5-5.1) mmol/L Chloride (98-107) mmol/L Carbon Dioxide (22-30) mmol/L Anion Gap (5-15) MEQ/L BUN (7-17) mg/dL Creatinine (0.52-1.04) mg/dL Estimated GFR ML/MIN Glucose (74-106) mg/dL Lactic Acid 1.2 (0.4-2.0) Calcium (8.4-10.2) mg/dL Magnesium (1.6-2.3) mg/dL Total Bilirubin (0.2-1.3) mg/dL AST (14-36) U/L ALT (0-35) U/L Alkaline Phosphatase (38-126) U/L Troponin I (0.000-0.034) ng/mL Serum Total Protein (6.3-8.2) g/dL Albumin (3.5-5.0) g/dL Lipase (23-300) U/L Urine Color Yellow (Yellow) Urine Appearance Clear (Clear) Urine pH 6.5 (4.6-8.0) Ur Specific [place] 1.015 (1.005-1.030) Urine Protein Negative (Negative) Urine Glucose (UA) Negative (Negative) mg/dL Urine Ketones Trace A (Negative) Urine Blood Negative (Negative) Urine Nitrite Negative (Negative) Urine Bilirubin Negative (Negative) Urine Urobilinogen 0.2 (0.2) mg/dL Ur Leukocyte Esterase Negative (Negative) U Hyaline Cast (Auto) NONE SEEN (0-2) /LPF Urine Microscopic RBC 0-2 (0-5) /HPF Urine Microscopic WBC 0-2 (0-5) /HPF Ur Epithelial Cells None Seen (None Seen) /HPF Urine Bacteria None Seen (None Seen) /HPF Urine Culture Reflexed NO (NO) Influenza Type A Ag (NEGATIVE) Influenza Type B Ag (NEGATIVE) RSV (PCR) (NEGATIVE) SARS-CoV-2 (PCR) (NEGATIVE) 11/26/23 11/26/23 11/26/23 Range/Units 03:58 03:57 03:57 WBC (4.0-10.5) x10^3/uL RBC (4.1-5.4) x10^6/uL Hgb (12.0-16.0) g/dL Hct (35-47) % MCV (78-100) fL MCH (26-32) pg MCHC (32-36) g/dL RDW (11.5-14.0) % Plt Count (150-450) x10^3/uL MPV (7.5-11.0) fL Gran % (36.0-66.0) % Immature Gran % (Auto) (0.00-0.4) % Nucleat RBC Rel Count (0.00-0.1) % Eos # (Auto) (0-0.5) x10^3/uL Immature Gran # (Auto) (0.00-0.03) x10^3u/L Absolute Lymphs (auto) (1.0-4.6) x10^3/uL Absolute Monos (auto) (0.0-1.3) x10^3/uL Absolute Nucleated RBC (0.00-0.01) x10^3u/L Lymphocytes % (24.0-44.0) % Monocytes % (0.0-12.0) % Eosinophils % (0.00-5.0) % Basophils % (0.0-0.4) % Absolute Granulocytes (1.4-6.9) x10^3/uL Basophils # (0-0.4) x10^3/uL pO2/FiO2 Ratio % VBG pH (7.32-7.42) VBG pCO2 at Pat Temp (42-55) mm/Hg VBG pO2 at Pat Temp (25-40) mm/Hg VBG HCO3 (22-28) meq/L VBG O2 Sat (Naz) (95-100) VBG Base Excess (-2.0-2.0) VBG Hemoglobin VBG Carboxyhemoglobin (0.0-6.9) % T HGB POC Potassium (3.5-5.1) Sodium 134 L (137-145) mmol/L Potassium 3.7 (3.5-5.1) mmol/L Chloride 105 (98-107) mmol/L Carbon Dioxide 21 L (22-30) mmol/L Anion Gap 11.4 (5-15) MEQ/L BUN 11 (7-17) mg/dL Creatinine 0.61 (0.52-1.04) mg/dL Estimated GFR 99.2 ML/MIN Glucose 179 H (74-106) mg/dL Lactic Acid (0.4-2.0) Calcium 9.7 (8.4-10.2) mg/dL Magnesium 1.8 (1.6-2.3) mg/dL Total Bilirubin 0.60 (0.2-1.3) mg/dL AST 101 H (14-36) U/L ALT 198 H (0-35) U/L Alkaline Phosphatase 122 (38-126) U/L Troponin I < 0.012 (0.000-0.034) ng/mL Serum Total Protein 7.1 (6.3-8.2) g/dL Albumin 4.4 (3.5-5.0) g/dL Lipase 59 (23-300) U/L Urine Color (Yellow) Urine Appearance (Clear) Urine pH (4.6-8.0) Ur Specific [place] (1.005-1.030) Urine Protein (Negative) Urine Glucose (UA) (Negative) mg/dL Urine Ketones (Negative) Urine Blood (Negative) Urine Nitrite (Negative) Urine Bilirubin (Negative) Urine Urobilinogen (0.2) mg/dL Ur Leukocyte Esterase (Negative) U Hyaline Cast (Auto) (0-2) /LPF Urine Microscopic RBC (0-5) /HPF Urine Microscopic WBC (0-5) /HPF Ur Epithelial Cells (None Seen) /HPF Urine Bacteria (None Seen) /HPF Urine Culture Reflexed (NO) Influenza Type A Ag NEGATIVE (NEGATIVE) Influenza Type B Ag NEGATIVE (NEGATIVE) RSV (PCR) NEGATIVE (NEGATIVE) SARS-CoV-2 (PCR) POSITIVE A (NEGATIVE) 11/26/23 Range/Units 03:57 WBC 7.0 (4.0-10.5) x10^3/uL RBC 5.09 (4.1-5.4) x10^6/uL Hgb 13.6 (12.0-16.0) g/dL Hct 41.9 (35-47) % MCV 82.3 (78-100) fL MCH 26.7 (26-32) pg MCHC 32.5 (32-36) g/dL RDW 14.0 (11.5-14.0) % Plt Count 235 (150-450) x10^3/uL MPV 10.6 (7.5-11.0) fL Gran % 85.4 H (36.0-66.0) % Immature Gran % (Auto) 0.6 H (0.00-0.4) % Nucleat RBC Rel Count 0.0 (0.00-0.1) % Eos # (Auto) 0.07 (0-0.5) x10^3/uL Immature Gran # (Auto) 0.04 H (0.00-0.03) x10^3u/L Absolute Lymphs (auto) 0.43 L (1.0-4.6) x10^3/uL Absolute Monos (auto) 0.46 (0.0-1.3) x10^3/uL Absolute Nucleated RBC 0.00 (0.00-0.01) x10^3u/L Lymphocytes % 6.1 L (24.0-44.0) % Monocytes % 6.6 (0.0-12.0) % Eosinophils % 1.0 (0.00-5.0) % Basophils % 0.3 (0.0-0.4) % Absolute Granulocytes 6.00 (1.4-6.9) x10^3/uL Basophils # 0.02 (0-0.4) x10^3/uL pO2/FiO2 Ratio % VBG pH (7.32-7.42) VBG pCO2 at Pat Temp (42-55) mm/Hg VBG pO2 at Pat Temp (25-40) mm/Hg VBG HCO3 (22-28) meq/L VBG O2 Sat (Naz) (95-100) VBG Base Excess (-2.0-2.0) VBG Hemoglobin VBG Carboxyhemoglobin (0.0-6.9) % T HGB POC Potassium (3.5-5.1) Sodium (137-145) mmol/L Potassium (3.5-5.1) mmol/L Chloride (98-107) mmol/L Carbon Dioxide (22-30) mmol/L Anion Gap (5-15) MEQ/L BUN (7-17) mg/dL Creatinine (0.52-1.04) mg/dL Estimated GFR ML/MIN Glucose (74-106) mg/dL Lactic Acid (0.4-2.0) Calcium (8.4-10.2) mg/dL Magnesium (1.6-2.3) mg/dL Total Bilirubin (0.2-1.3) mg/dL AST (14-36) U/L ALT (0-35) U/L Alkaline Phosphatase (38-126) U/L Troponin I (0.000-0.034) ng/mL Serum Total Protein (6.3-8.2) g/dL Albumin (3.5-5.0) g/dL Lipase (23-300) U/L Urine Color (Yellow) Urine Appearance (Clear) Urine pH (4.6-8.0) Ur Specific [place] (1.005-1.030) Urine Protein (Negative) Urine Glucose (UA) (Negative) mg/dL Urine Ketones (Negative) Urine Blood (Negative) Urine Nitrite (Negative) Urine Bilirubin (Negative) Urine Urobilinogen (0.2) mg/dL Ur Leukocyte Esterase (Negative) U Hyaline Cast (Auto) (0-2) /LPF Urine Microscopic RBC (0-5) /HPF Urine Microscopic WBC (0-5) /HPF Ur Epithelial Cells (None Seen) /HPF Urine Bacteria (None Seen) /HPF Urine Culture Reflexed (NO) Influenza Type A Ag (NEGATIVE) Influenza Type B Ag (NEGATIVE) RSV (PCR) (NEGATIVE) SARS-CoV-2 (PCR) (NEGATIVE) - Progress Progress: improved, re-examined Progress Note: 11/26/23 06:40 Discussed with patient and family about Paxlovid, went over risk and benefits, wants to go ahead with it. Counseled pt/family regarding: lab results, diagnosis, need for follow-up, rad results Medical Desision Making - Independent Historian Additional History obtained from: Spouse - Diagnostic Testing Diagnostic test were ordered, analyzed, and reviewed by me: Yes Radiological Interpretation: Reviewed by me, Teleradiologist Report - Risk of complications The pt has a mod risk of morbidity or mortality based on: Need for prescription drug management - Departure Departure Disposition: Home Clinical Impression: Gastroenteritis, COVID-19 virus detected Condition: Stable Critical Care Time: No Referrals: ANDREA GREENE MD [Primary Care Provider] - Follow up with PCP 1 day Instructions: COVID-19 (DC), Viral Gastroenteritis, Adult (DC) Additional Instructions: Drink plenty of fluids. Take Tylenol/Zofran as needed. Follow-up with your primary care for reevaluation. Return to ER for intractable vomiting diarrhea, abdominal pain, fever chills or difficulty breathing etc. Prescriptions: Nirmatrelvir/Ritonavir [Paxlovid 300-100 mg Dose Pack] 1 each PO BID 5 Days #30 tab Ondansetron ODT 4 MG [Zofran Odt 4 mg] 1 ea PO QIDPRN PRN #7 tablet PRN Reason: n/v
[2023-11-26] MEDS: Sodium Chloride 0.9% 1000 ML 1,000 ML IV STA (03:56)
[2023-11-26] MEDS: MORPHINE SULFATE 4 MG INJ IV ONE (03:56)
[2023-11-26] MEDS: PROTONIX 40 MG IV IV ONE (03:56)
[2023-11-26] MEDS: Zofran 4 MG/2 ML VIAL IV ONE (03:56)
[2023-11-26 04:24] LABS: VBG BASE EXCESS 2.4 (-2.0-2.0); VBG CARBOXYHEMOGLOBIN 3.2 % T HGB (0.0-6.9); VBG O2 SATURATION 78.4 (95-100); VBG POTASSIUM 3.9 (3.5-5.1); VBG pH 7.5 (7.32-7.42)
[2023-11-26 04:26] LABS: BASOPHIL % 0.3 % (0.0-0.4); Basophil (Absolute #) 0.02 x10^3/uL (0-0.4); Eosinophil (Absolute #) 0.07 x10^3/uL (0-0.5); Hematocrit 41.9 % (35-47); Hemoglobin 13.6 g/dL (12.0-16.0); IMMATURE GRAN # 0.04 x10^3u/L (0.00-0.03); IMMATURE GRAN % 0.6 % (0.00-0.4); Lymphocyte (Absolute #) 0.43 x10^3/uL (1.0-4.6); Lymphocytes % 6.1 % (24.0-44.0); Mean Cell Volume 82.3 fL (78-100); Mean Corpuscular Hemoglobin 26.7 pg (26-32); Mean Corpuscular Hgb Concent. 32.5 g/dL (32-36); Mean Platelet Volume 10.6 fL (7.5-11.0); Monocyte (Absolute #) 0.46 x10^3/uL (0.0-1.3); Monocytes % 6.6 % (0.0-12.0); Neutrophil % 85.4 % (36.0-66.0); Platelet Count 235 x10^3/uL (150-450); Red Blood Count 5.09 x10^6/uL (4.1-5.4)
[2023-11-26 04:36] LABS: ALBUMIN 4.4 g/dL (3.5-5.0); ANION GAP 11.4 MEQ/L (5-15); BILIRUBIN,TOTAL 0.6 mg/dL (0.2-1.3); Calcium 9.7 mg/dL (8.4-10.2); Creatinine 1 0.61 mg/dL (0.52-1.04); EST GLOMERULAR FILTRATION RATE 99.2 ML/MIN; MAGNESIUM 1.8 mg/dL (1.6-2.3); Potassium 3.7 mmol/L (3.5-5.1); Total Protein 7.1 g/dL (6.3-8.2)
[2023-11-26 04:37] LABS: INFLUENZA A NEGATIVE (NEGATIVE); INFLUENZA B NEGATIVE (NEGATIVE); RESPIRATORY SYNCTIAL VIRUS NEGATIVE (NEGATIVE)
[2023-11-26 04:43] LABS: SARS-CoV-2 Xpert Express POSITIVE (NEGATIVE)
[2023-11-26] MEDS: Sodium Chloride 0.9% 1000 ML 1,000 ML IV SCH (05:10)
--- NOTE | 2023-11-26 05:14 | XRAY ---
CLINICAL HISTORY: cough/fever TECHNIQUE: Axial CT images of the chest were acquired without the administration of intravenous contrast. Coronal and sagittal reconstructions were obtained. DLP : 1012.26 mGy-cm, CTDIvol: 13.12 mGy COMPARISON: None. FINDINGS: An irregularly shaped right lower lobar nodule with small calcified component is noted measuring about 7.4 x 6.6 mm. Few calcified right hilar lymph nodes are also noted. Collectively, both findings suggests old healed granulomatous process. No evidence of consolidative opacities or masses in both lung parenchyma. Few reactionary mediastinal lymph nodes are seen, no suspiciously enlarged nodes are noted. Average cardiac size, mitral annulus degenerative calcifications are noted. Atherosclerotic calcifications of the aorta, no aneurysmal dilation. Patent tracheobrochial tree. No pleural effusions. No lytic or sclerotic lesions in the visualized spine. Upper abdominal cuts reveal few tiny calcified splenic granulomas. Lower neck cuts reveal an enlarged right thyroid lobe with hypodense nodule, sonographic evaluation is advised. IMPRESSION: 1. No consolidation or pleural effusion. 2. Few calcified right hilar lymph nodes as well as a right lower lobar irregular-shaped nodule with fine calcification. Collectively, both findings suggests old healed granulomatous process. However, clinical and lab correlation is advised to rule out active infection. Follow-up for the nodule is advised to confirm stability. 3. Enlarged right thyroid lobe with hypodense nodule, sonographic evaluation is advised. Electronically Signed by: Omar Lopez MD. (11/26/2023 05:09:26 EST)
--- NOTE | 2023-11-26 05:20 | XRAY ---
CLINICAL HISTORY: vomiting/abd pain/fever TECHNIQUE: CT of the abdomen and pelvis was performed with axial images as well as sagittal and coronal reconstruction images without intravenous contrast. COMPARISON: None. FINDINGS: Calcified right hilar lymph nodes, suggestive of old granuloma. The peripheral nodule is seen at right lower lung lobe measuring about 9 mm. The liver is enlarged, measuring 22 cm. No focal lesions. No dilated intrahepatic biliary radicles. Surgically removed gallbladder. Unremarkable appearing pancreas. No pancreatic mass or ductal dilatation is seen. The normal size of spleen with multiple foci of calcification is suggestive of old granuloma. The adrenal glands are normal. Normal size of both kidneys. Left kidney upper zone cortical cyst measuring about 2.3X 2.3 cm with small marginal calcification and lower zone small exophytic cyst measuring about 1.2X 1.2 cm. No stones or hydronephrosis. The ureters are normal with no stones. Atherosclerotic calcification of the aorta. IVC is normal. The visualized distal esophagus appears unremarkable. The stomach appears unremarkable. Unremarkable appearing duodenum. Small Bowel and colon are non-distended with no abnormality Appendix is unremarkable. No free air and no ascites. Bladder is unremarkable with no stones. Uterus and adnexa are unremarkable. Lumbar vertebral spondylitic changes. No abdominal wall pathology is seen. IMPRESSION: 1. No acute abdominal or pelvic pathology. 2. Hepatomegaly. 3. Multiple foci of calcification seen at the spleen suggestive of old granuloma. 4. Left renal cysts, would recommend ultrasound abdomen for further evaluation if clinically warranted. 5. Calcified right hilar lymph nodes. Peripheral nodularity with calcification seen at the right lower lung lobe. The findings may be seen in granulomatous infection, possibly old. Clinical and lab correlation is advised to rule out active infection. Electronically Signed by: Omar Lopez MD. (11/26/2023 05:16:16 EST)
[2023-11-26 05:56] LABS: Appearance Clear (Clear); Bacteria None Seen /HPF (None Seen); Bilirubin Negative (Negative); Blood Negative (Negative); Epithelial Cells None Seen /HPF (None Seen); Glucose, Urine Negative (Negative); Hyaline Casts NONE SEEN /LPF (0-2); Ketones Trace (Negative); Leukocyte Esterase Negative (Negative); Nitrite Negative (Negative); Ph 6.5 (4.6-8.0); Protein,Urine Dip Negative (Negative); RBC 0-2 /HPF (0-5); Specific Gravity 1.015 (1.005-1.030); Urobilinogen 0.2 mg/dL (0.2); WBC 0-2 /HPF (0-5)
[2023-11-26 06:03] LABS: ADD URINE CULTURE? NO (NO)
[2023-11-26 07:03] VITALS: BP 137/82; PULSE 97; RESP 20; O2SAT 96
== END 2023-11-26 07:04 | disposition home or self-care (01) ==
LOC: ED 03:24
DX: U07.1 COVID-19 (principal); K52.9 Noninfective gastroenteritis and colitis, unspecified; R05.1 Acute cough; R11.2 Nausea with vomiting, unspecified; R10.9 Unspecified abdominal pain; R50.9 Fever, unspecified; E78.5 Hyperlipidemia, unspecified; I10 Essential (primary) hypertension; E11.9 Type 2 diabetes mellitus without complications; Z79.891 Long term (current) use of opiate analgesic; Z79.84 Long term (current) use of oral hypoglycemic drugs; Z79.899 Other long term (current) drug therapy
CPT/HCPCS: 0241U; 36000; 36415; 71250; 74176; 80053; 81001; 82805; 83605; 83690; 83735; 84484; 85025; 93005; 96360; 96374; 96375; 99285; J2270; J2405

== ENCOUNTER 2024-04-30 19:34 | Emergency (ER) | payer MEDICARE ==
[2024-04-30 19:46] VITALS: RESP 18; TEMP 98.5
[2024-04-30 20:13] LABS: Absolute Neutrophil Ct (ANC) 4.34 x10^3/uL (1.56-6.13); BASOPHIL % 0.6 % (0.1-1.2); Basophil (Absolute #) 0.04 x10^3/uL (0.01-0.08); Eosinophil % 2.8 % (0.7-5.8); Hematocrit 34.3 % (34.1-44.9); Hemoglobin 10.9 g/dL (11.2-15.7); IMMATURE GRAN # 0.02 x10^3u/L (0.001-0.031); IMMATURE GRAN % 0.3 % (0.001-0.429); Lymphocyte (Absolute #) 1.97 x10^3/uL (1.18-3.74); Lymphocytes % 28.1 % (19.3-51.7); Mean Cell Volume 84.7 fL (79.4-94.8); Mean Corpuscular Hemoglobin 26.9 pg (25.6-32.2); Mean Corpuscular Hgb Concent. 31.8 g/dL (32.2-35.5); Mean Platelet Volume 10.4 fL (9.4-12.3); Monocyte (Absolute #) 0.45 x10^3/uL (0.24-0.86); Monocytes % 6.4 % (4.7-12.5); Neutrophil % 61.8 % (34.0-71.1); Platelet Count 234 x10^3/uL (182-369); Red Blood Count 4.05 x10^6/uL (3.93-5.22); Red Cell Distribution Width 13.7 % (11.7-14.4)
--- NOTE | 2024-04-30 20:17 | ERPHSYRPT ---
- History of Present Illness Time Seen by Provider: 04/30/24 20:12 Source: patient Exam Limitations: no limitations Patient Subjective Stated Complaint: Leg swelling (Left) Triage Nursing Assessment: Patient ambulated back to ED and transferred self to bed. Patient A+O X 3. Patient's skin pink, warm and dry. Patient complains of left leg swelling that started last night. Patient states she has had occasional pain to left calf. Patient denies pain or discomfort. No redness, warmth or swelling noted to left calf. Negative Rajiv's sign. Patient has recent thyroidectomy on 04/24/2024. Physician History: 64-year-old female 6 days postop thyroidectomy presents to our ED for evaluation of left-sided calf swelling and pain and shortness of breath. Patient reports that patient has been labile. Patient has been crying easily. No obvious muscular cramping. Patient states her shortness of breath is intermitt ent. No associated chest pain per se. Patient's left calf swelling with significant earlier in the day. However swelling improved after the leg was elevated. They are worried about a blood clot. Patient's symptoms are moderate in intensity. No specific worsening or improving factors. Unable to elicit a Homans' sign during my exam today. However there are no fresh factors noted justify an ultrasound of the left lower extremity. Portions of this note were created with voice recognition technology. There may be grammatical, spelling, punctuation or sound alike errors Timing/Duration: today Severity: moderate Modifying Factors: Improves With: nothing Associated Symptoms: denies symptoms Allergies/Adverse Reactions: No Known Drug Allergies Allergy (Verified 04/30/24 19:37) Home Medications: Carisoprodol 350 mg [Soma 350 mg] 1 tab PO TID 01/17/17 [History] Levothyroxine Sodium 50 Mcg [Synthroid 50 Mcg] 50 mcg PO DAILY 01/17/17 [History] Lisinopril 20 mg [Zestril 20 MG] 1 tab PO DAILY 12/03/22 [History] Hydrocodone Bit/Acetaminophen [[place] 5/325Mg] 1 tab PO TID 11/26/23 [History] Metformin HCl 500 mg [Glucophage 500 MG] 1,000 mg PO BID 11/26/23 [History] Promethazine HCl 12.5 mg PO TID PRN 11/26/23 [History] Hx Tetanus, Diphtheria Vaccination/Date Given: Yes (2021) Hx Influenza Vaccination/Date Given: Yes Hx Pneumococcal Vaccination/Date Given: No Immunizations Up to Date: Yes Travel Risk - International Travel Have you traveled outside of the country in past 3 weeks: No - Emerging Infectious Disease Are you exhibiting symptoms associated with any current EIDs: No - Review of Systems Constitutional: No Symptoms, No Fever, No Chills Eyes: No Symptoms Ears, Nose, & Throat: No Symptoms Respiratory: Dyspnea on Exertion (CHAPA), No Cough, No Dyspnea Cardiac: No Symptoms, No Chest Pain, No Edema, No Syncope Abdominal/Gastrointestinal: No Symptoms, No Abdominal Pain, No Nausea, No Vomiting, No Diarrhea Genitourinary Symptoms: No Symptoms, No Dysuria Musculoskeletal: No Symptoms, No Back Pain, No Neck Pain Skin: No Symptoms, No Rash Neurological: No Symptoms, No Dizziness, No Focal Weakness, No Sensory Changes Psychological: No Symptoms Endocrine: No Symptoms Hematologic/Lymphatic: No Symptoms Immunological/Allergic: No Symptoms All Other Systems: Reviewed and Negative - Past Medical History Pertinent Past Medical History: Yes Neurological History: No Pertinent History ENT History: No Pertinent History Cardiac History: High Cholesterol, Hypertension Respiratory History: Asthma, COPD Endocrine Medical History: Diabetes Type II, Hypothyroidism Musculoskeletal History: Arthritis, Osteoarthritis GI Medical History: Gallbladder Disease History: No Pertinent History Psycho-Social History: No Pertinent History Female Reproductive Disorders: Breast Cancer, Menstrual Problems 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 - Past Surgical History Past Surgical History: Yes Neuro Surgical History: No Pertinent History Cardiac: No Pertinent History Respiratory: No Pertinent History Gastrointestinal: Cholecystectomy Genitourinary: No Pertinent History Musculoskeletal: Orthopedic Surgery Female Surgical History: Lumpectomy, Other Other Surgical History: thermal ablation, left knee scope - Social History Smoking Status: Never smoker Exposure to second hand smoke: No Drug Use: none Patient Lives Alone: No - Social Determinants of Health Will the patient participate in the screening: Yes Do you worry about a steady place to live?: No Do you have any problems with any of the following?: No known problems In the past 12 months,have you had to go without utilities?: No Transportation Issues: No Has anyone in your support network made you feel unsafe?: No Have you or anyone in your house had to go without enough: No - Nursing Vital Signs Nursing Vital Signs: Initial Vital Signs Temperature 98.5 F 04/30/24 19:39 Pulse Rate 101 H 04/30/24 19:39 Respiratory Rate 18 04/30/24 19:39 Blood Pressure 165/97 04/30/24 19:39 O2 Sat by Pulse Oximetry 99 04/30/24 19:39 Pain Scale Pain Intensity 0 - Physical Exam General Appearance: no apparent distress, alert Eye Exam: PERRL/EOMI, eyes nml inspection Ears, Nose, Throat Exam: normal ENT inspection, TMs normal, pharynx normal, moist mucous membranes, other Neck Exam: normal inspection, non-tender, supple, full range of motion, other (Well-healing postoperative scar. Steri-Strips still intact. No signs of infection or drainage.) Respiratory Exam: normal breath sounds, lungs clear, No respiratory distress Cardiovascular Exam: regular rate/rhythm, normal heart sounds, normal peripheral pulses Gastrointestinal/Abdomen Exam: soft, normal bowel sounds, No tenderness, No mass Back Exam: normal inspection, normal range of motion, No CVA tenderness, No vertebral tenderness Extremity Exam: normal inspection, normal range of motion, pelvis stable, other (No obvious swelling at this time. Unable to elicit Homans' sign) Neurologic Exam: alert, oriented x 3, cooperative, normal mood/affect, sensation nml, No motor deficits Skin Exam: normal color, warm, dry, No rash Lymphatic Exam: No adenopathy SpO2 Interpretation: normal SpO2: 99 O2 Delivery: Room Air - Course Nursing assessment & vital signs reviewed: Yes - CT Exams Chest CT Interpretation: Tele-radiologist Report (Compared to 11/26/2023 status post thyroidectomy with tiny anterior pneumomediastinum. Negative PE. Stable right lower lobe peripheral benign noncalcified micronodule and fatty liver. Remaining chest negative) - Radiology Ultrasound Exam Venous Lower Extremity Ultrasound: discussed w/radiologist (Per vegetable thinner no left lower extremity DVT seen. Preliminary report. Formal read pending) Ordered Tests: Active Orders 24 hr Category Date Time Status Supervisor Locomotive STAT Care 04/30/24 20:09 Active IV Insertion STAT Care 04/30/24 20:08 Active Pulse Oximetry (ED) STAT Care 04/30/24 20:08 Active CHEST WITH CONTRAST [CT] Stat Exams 04/30/24 20:09 Taken VENOUS UNILAT/LIMITED EXTREMIT [US] Stat Exams 04/30/24 20:11 Taken CBC W DIFF Stat Lab 04/30/24 20:00 Completed CMP Stat Lab 04/30/24 20:00 Completed D-DIMER QUANTITATIVE Stat Lab 04/30/24 20:00 Completed TROPONIN Q4H Lab 04/30/24 20:00 Completed TROPONIN Q4H Lab 05/01/24 00:15 Ordered TROPONIN Q4H Lab 05/01/24 04:15 Ordered Lab/Rad Data: Laboratory Result Diagrams 04/30/24 20:00 04/30/24 20:00 Laboratory Results 04/30/24 04/30/24 04/30/24 Range/Units 20:00 20:00 20:00 WBC (3.98-10.04) x10^3/uL RBC (3.93-5.22) x10^6/uL Hgb (11.2-15.7) g/dL Hct (34.1-44.9) % MCV (79.4-94.8) fL MCH (25.6-32.2) pg MCHC (32.2-35.5) g/dL RDW (11.7-14.4) % Plt Count (182-369) x10^3/uL MPV (9.4-12.3) fL Gran % (34.0-71.1) % Immature Gran % (Auto) (0.001-0.429) % Nucleat RBC Rel Count (0.00-0.2) % Eos # (Auto) (0.04-0.36) x10^3/uL Immature Gran # (Auto) (0.001-0.031) x10^3u/L Absolute Lymphs (auto) (1.18-3.74) x10^3/uL Absolute Monos (auto) (0.24-0.86) x10^3/uL Absolute Nucleated RBC (0.00-0.012) x10^3u/L Lymphocytes % (19.3-51.7) % Monocytes % (4.7-12.5) % Eosinophils % (0.7-5.8) % Basophils % (0.1-1.2) % Absolute Granulocytes (1.56-6.13) x10^3/uL Basophils # (0.01-0.08) x10^3/uL D-Dimer 1.36 H* (0.0-0.50) mg/L Sodium 142 (135-145) mmol/L Potassium 4.3 (3.5-5.1) mmol/L Chloride 105 (98-107) mmol/L Carbon Dioxide 28 (22-30) mmol/L Anion Gap 12.8 (5-15) MEQ/L BUN 16 (7-17) mg/dL Creatinine 0.76 (0.52-1.04) mg/dL Estimated GFR 86.4 ML/MIN Glucose 131 H (74-106) mg/dL Calcium 7.4 L (8.4-10.2) mg/dL Total Bilirubin 0.10 L (0.2-1.3) mg/dL AST 26 (14-36) U/L ALT 22 (0-35) U/L Alkaline Phosphatase 72 (38-126) U/L Troponin I < 0.012 (0.000-0.033) ng/mL Serum Total Protein 7.0 (6.3-8.2) g/dL Albumin 4.2 (3.5-5.0) g/dL 04/30/24 Range/Units 20:00 WBC 7.0 (3.98-10.04) x10^3/uL RBC 4.05 (3.93-5.22) x10^6/uL Hgb 10.9 L (11.2-15.7) g/dL Hct 34.3 (34.1-44.9) % MCV 84.7 (79.4-94.8) fL MCH 26.9 (25.6-32.2) pg MCHC 31.8 L (32.2-35.5) g/dL RDW 13.7 (11.7-14.4) % Plt Count 234 (182-369) x10^3/uL MPV 10.4 (9.4-12.3) fL Gran % 61.8 (34.0-71.1) % Immature Gran % (Auto) 0.3 (0.001-0.429) % Nucleat RBC Rel Count 0.0 (0.00-0.2) % Eos # (Auto) 0.20 (0.04-0.36) x10^3/uL Immature Gran # (Auto) 0.02 (0.001-0.031) x10^3u/L Absolute Lymphs (auto) 1.97 (1.18-3.74) x10^3/uL Absolute Monos (auto) 0.45 (0.24-0.86) x10^3/uL Absolute Nucleated RBC 0.00 (0.00-0.012) x10^3u/L Lymphocytes % 28.1 (19.3-51.7) % Monocytes % 6.4 (4.7-12.5) % Eosinophils % 2.8 (0.7-5.8) % Basophils % 0.6 (0.1-1.2) % Absolute Granulocytes 4.34 (1.56-6.13) x10^3/uL Basophils # 0.04 (0.01-0.08) x10^3/uL D-Dimer (0.0-0.50) mg/L Sodium (135-145) mmol/L Potassium (3.5-5.1) mmol/L Chloride (98-107) mmol/L Carbon Dioxide (22-30) mmol/L Anion Gap (5-15) MEQ/L BUN (7-17) mg/dL Creatinine (0.52-1.04) mg/dL Estimated GFR ML/MIN Glucose (74-106) mg/dL Calcium (8.4-10.2) mg/dL Total Bilirubin (0.2-1.3) mg/dL AST (14-36) U/L ALT (0-35) U/L Alkaline Phosphatase (38-126) U/L Troponin I (0.000-0.033) ng/mL Serum Total Protein (6.3-8.2) g/dL Albumin (3.5-5.0) g/dL - Progress Progress: improved Progress Note: 64-year-old female presents to our ED postop day 6 thyroidectomy for evaluation of left lower extremity swelling. Patient concern for DVT. Patient also reported that she has been experiencing some shortness of breath. Physical exam essentially nonremarkable. Negative Rajiv negative left lower extremity swelling. Pulmonary exam normal as well. Ultrasound left lower extremity nonremarkable. Negative for DVT. CTA chest negative for PE. Patient's labs shows slightly decreased calcium at 7.4. Patient currently on calcium supplementation. She will call her primary care doctor in the morning and advise them of the hypocalcemia. They can adjust the calcium supplementation accordingly. Patient currently asymptomatic will discharge home. She voices no other complaints or concerns at this time. Portions of this note were created with voice recognition technology. There may be grammatical, spelling, punctuation or sound alike errors Complexity problem addressed is moderate acute complicated. No critical care time. Complexity of data reviewed and analyzed is moderate. Test ordered test reviewed results analyzed and correlated clinically with history and physical exam. Risk of complication and or risk of morbidity/mortality patient management is low. Vital stable. Time spent to discharge patient is approximately 15 minutes. Plan of care established for shared decision making. No social determinants of health present impede follow-up. Portions of this note were created with voice recognition technology. There may be grammatical, spelling, punctuation or sound alike errors 04/30/24 22:01 Counseled pt/family regarding: lab results, diagnosis, need for follow-up, rad results - Departure Departure Disposition: Home Clinical Impression: Fatty liver, Hypocalcemia Condition: Stable Critical Care Time: No Referrals: ANDREA GREENE MD [Primary Care Provider] - Follow up/PCP as directed Additional Instructions: Discharge/Care Plan JENISE VICTORIA GEENA was seen on 04/30/24 in the Emergency Room. The patient was counseled regarding Diagnosis,Lab results, Imaging studies, need for follow up and when to return to the Emergency Room. Prescriptions given: Discharge Note I have spoken with the patient and/or caregivers. I have explained the patient's condition, diagnosis and treatment plan based on the information available to me at this time. I have answered the patient's and/or caregiver's questions and addressed any concerns. The patient and/or caregivers have as good understanding of the patient's diagnosis, condition and treatment plan as can be expected at this point. The vital signs have been stable. The patient's condition is stable and appropriate for discharge from the emergency department. The patient will pursue further outpatient evaluation with the primary care milan العراقي or other designated or consulting physician as outlined in the discharge instructions. The patient and/or caregivers are agreeable to this plan of care and follow-up instructions have been explained in detail. The patient and/or caregivers have received these instruction. The patient/and or caregivers are aware that any significant change in condition or worsening of symptoms should prompt an immediate return to this or the closest emergency department or call 911.
[2024-04-30 20:31] LABS: ALBUMIN 4.2 g/dL (3.5-5.0); ANION GAP 12.8 MEQ/L (5-15); BILIRUBIN,TOTAL 0.1 mg/dL (0.2-1.3); Calcium 7.4 mg/dL (8.4-10.2); Creatinine 1 0.76 mg/dL (0.52-1.04); EST GLOMERULAR FILTRATION RATE 86.4 ML/MIN; Potassium 4.3 mmol/L (3.5-5.1)
[2024-04-30 21:17] VITALS: BP 147/75; PULSE 86
[2024-04-30 21:48] VITALS: O2SAT 99
--- NOTE | 2024-05-01 08:43 | XRAY ---
Indication: Swelling and pain. DVT. Two-dimensional sonogram and color Doppler imaging major venous vessels left leg performed. Comparison: None No thrombus seen in the examined deep venous vessels left leg including greater saphenous vein. Veins demonstrate normal compressibility. Venous waveforms are normal with and without augmentation. Impression: Left leg negative for DVT. Comment: Preliminary report was given.
--- NOTE | 2024-05-01 08:47 | XRAY ---
Indication: Short of breath. Status post thyroidectomy. Elevated d-dimer. Multiple contiguous axial images obtained through the chest using 80 cc Isovue 370 contrast and PE protocol. Comparison: CT chest without contrast November 26, 2023. Good opacification of the pulmonary arteries to include the lobar and segmental branches. No pulmonary embolus. Heart not enlarged again with mitral valve calcifications. Aorta is normal in course and caliber. Stable small right hilar calcified nodes. No pathologic mediastinal/hilar lymphadenopathy. Interval thyroidectomy with small pneumomediastinum. Lungs again demonstrates minimal bilateral dependent atelectasis. Peripheral right lower lobe demonstrates stable cluster of calcified/noncalcified micro-nodules favored to be granulomatous. No suspicious pulmonary mass/nodule, infiltrate, effusion, or pneumothorax. Bony thorax intact again with osteopenia and mild degenerative changes throughout the spine. Limited upper abdomen again demonstrates mild diffuse fatty liver, splenic calcified granulomas, left renal cyst, and cholecystectomy. Impression: 1. Negative pulmonary embolus. No new/acute cardiopulmonary abnormalities. 2. New postoperative pneumomediastinum. 3. Again chronic findings including mitral valve calcifications, chronic bony findings, fatty liver, left renal cyst, and old granulomatous disease.
== END 2024-04-30 22:12 | disposition home or self-care (01) ==
LOC: ED 19:34
DX: K76.0 Fatty (change of) liver, not elsewhere classified (principal); E83.51 Hypocalcemia; M79.662 Pain in left lower leg; M79.89 Other specified soft tissue disorders; R06.02 Shortness of breath; E78.5 Hyperlipidemia, unspecified; I10 Essential (primary) hypertension; E11.9 Type 2 diabetes mellitus without complications; Z79.891 Long term (current) use of opiate analgesic; Z79.84 Long term (current) use of oral hypoglycemic drugs; Z79.899 Other long term (current) drug therapy
CPT/HCPCS: 36000; 36415; 71260; 80053; 84484; 85025; 85379; 93041; 93971; 94760; 99284

== ENCOUNTER 2025-06-27 18:06 | Emergency (ER) | payer MEDICARE ==
--- NOTE | 2025-06-27 18:18 | ERPHSYRPT ---
<NAHUN FREDERICK - Last Filed: 06/27/25 19:21> - History of Present Illness Time Seen by Provider: 06/27/25 18:12 Historian: patient Exam Limitations: no limitations Physician History: This is a 65-year-old white female presents to the emergency room with acute onset of palpitations and chest tightness. Patient says she has no cardiac history she does have a history of hypothyroidism. Patient denies any fevers chills nausea vomiting she was complaining of slight shortness of breath there is no recent long distance travel no history of malignancy. In the emergency room patient is able to speak in full sentences in minimal distress. Allergies/Adverse Reactions: No Known Drug Allergies Allergy (Verified 04/30/24 19:37) Home Medications: Carisoprodol 350 mg [Soma 350 mg] 1 tab PO TID 01/17/17 [History] Levothyroxine Sodium 50 Mcg [Synthroid 50 Mcg] 50 mcg PO DAILY 01/17/17 [History] Lisinopril 20 mg [Zestril 20 MG] 1 tab PO DAILY 12/03/22 [History] Hydrocodone Bit/Acetaminophen [[place] 5/325Mg] 1 tab PO TID 11/26/23 [History] Metformin HCl 500 mg [Glucophage 500 MG] 1,000 mg PO BID 11/26/23 [History] Promethazine HCl 12.5 mg PO TID PRN 11/26/23 [History] Hx Tetanus, Diphtheria Vaccination/Date Given: Yes (2021) Hx Influenza Vaccination/Date Given: Yes Hx Pneumococcal Vaccination/Date Given: No Travel Risk - Emerging Infectious Disease Are you exhibiting symptoms associated with any current EIDs: No - Review of Systems Constitutional: No Fever, No Chills Eyes: No Symptoms Ears, Nose, & Throat: No Symptoms Respiratory: No Cough, No Dyspnea Cardiac: Palpitations, No Chest Pain, No Edema, No Syncope Abdominal/Gastrointestinal: No Abdominal Pain, No Nausea, No Vomiting, No Diarrhea Genitourinary Symptoms: No Dysuria Musculoskeletal: No Back Pain, No Neck Pain Skin: No Rash Neurological: No Dizziness, No Focal Weakness, No Sensory Changes Psychological: No Symptoms Endocrine: No Symptoms All Other Systems: Reviewed and Negative - Past Medical History Pertinent Past Medical History: Yes Neurological History: No Pertinent History ENT History: No Pertinent History Cardiac History: High Cholesterol, Hypertension Respiratory History: Asthma, COPD Endocrine Medical History: Diabetes Type II, Hypothyroidism Musculoskeletal History: Arthritis, Osteoarthritis GI Medical History: Gallbladder Disease History: No Pertinent History Psycho-Social History: No Pertinent History Female Reproductive Disorders: Breast Cancer, Menstrual Problems 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 - Past Surgical History Past Surgical History: Yes Neuro Surgical History: No Pertinent History Cardiac: No Pertinent History Respiratory: No Pertinent History Gastrointestinal: Cholecystectomy Genitourinary: No Pertinent History Musculoskeletal: Orthopedic Surgery Female Surgical History: Lumpectomy, Other Other Surgical History: thermal ablation, left knee scope - Social History Smoking Status: Never smoker Exposure to second hand smoke: No Drug Use: none Patient Lives Alone: No - Social Determinants of Health Will the patient participate in the screening: Yes Do you worry about a steady place to live?: No In the past 12 months,have you had to go without utilities?: No Transportation Issues: No Has anyone in your support network made you feel unsafe?: No Have you or anyone in your house had to go w/o enough food: No - Physical Exam General Appearance: no apparent distress, alert Eye Exam: PERRL/EOMI, eyes nml inspection Ears, Nose, Throat Exam: normal ENT inspection, moist mucous membranes Neck Exam: normal inspection, non-tender, supple, full range of motion Respiratory Exam: normal breath sounds, lungs clear, No respiratory distress Cardiovascular Exam: regular rate/rhythm, normal heart sounds, tachycardia Gastrointestinal/Abdomen Exam: soft, No tenderness, No mass Back Exam: normal inspection, No CVA tenderness, No vertebral tenderness Extremity Exam: normal inspection, normal range of motion Neurologic Exam: alert, oriented x 3, cooperative, normal mood/affect, sensation nml, No motor deficits Skin Exam: normal color, warm, dry - Progress Progress Note: The patient had twelve-lead EKG revealed sinus tachycardia at 136 bpm normal axis no blocks nonspecific ST-T wave changes patient had a chest x-ray which was unremarkable CBC was within normal his chemistry was remarkable for creatinine 1.5 Trope first troponin was negative D-dimer was negative at this point we are waiting on his second troponin. Patient was given IV hydration with saline also doses of IV metoprolol. At this point the patient will be signed out to Dr. Argueta for final disposition differential diagnoses angina ID aortic dissection pulmonary embolism 06/27/25 19:10 - Departure Clinical Impression: Palpitations, Chest pain, Pulmonary nodules, Near syncope Condition: Fair Critical Care Time: No Referrals: ANDREA GREENE MD [Primary Care Provider, [facility]] - Follow up/PCP as directed Additional Instructions: followup lung nodules and widened aorta with your Drs <YAO,JOSE BROWN - Last Filed: 06/28/25 06:36> - History of Present Illness Historian: patient, family Exam Limitations: no limitations Physician History: Pt received at change of shift from Dr. Fay after discussion of pending labs and studies. Pt had onset of chest pain today and near syncope with low BP then presenting with tachy and dizziness and CP 6/10 with heaviness. Had sharper CP last couple of weeks. On thyroid meds. Discussed with pt and available family risks and benefits of testing/Tx including CBC, CMP, EKG, Trop, BNP, D-dimer, Lipase, CT Chest ( kahd0rns at aorta but GFR does not allow dye) , CXR, swabs for Covid, RSV, Flu pain med, and they wish to proceed so these are ordered. Results discussed with pt and available family. Pt and family were advised of the limitations of the testing and Tx performed today in this setting and that we have not yet determined a precise cause for their symptoms and there still could be additional pathology of a serious nature evolving undetected. They voice their understanding and wish to choose outpatient f/u rather than further testing in ER or admission to hospital or transfer at this time and they have the capacity to make this choice. Timing/Duration: today Activities at Onset: none Quality: pressure, sharpness, tightness Location: substernal Chest Pain Radiation: arm Severity of Pain-Max: moderate Severity of Pain-Current: moderate Modifying Factors: Improves With: nothing Associated Symptoms: shortness of breath, hurts to breathe, syncope Prior Chest Pain/Cardiac Workup: no prior chest pain Nitro Today/Relief: no nitro taken today Aspirin Treatment Today: 81 mg x 4, provided by ED - Review of Systems Respiratory: No Stridor, No Wheezing Musculoskeletal: Back Pain Hematologic/Lymphatic: No Symptoms Immunological/Allergic: No Symptoms - Nursing Vital Signs Nursing Vital Signs: Initial Vital Signs Pulse Rate 137 H 06/27/25 18:06 Respiratory Rate 14 06/27/25 18:06 Blood Pressure 135/96 06/27/25 18:06 O2 Sat by Pulse Oximetry 100 06/27/25 18:06 Pain Scale Pain Intensity 6 - Physical Exam General Appearance: no apparent distress, alert Eye Exam: PERRL/EOMI, eyes nml inspection Ears, Nose, Throat Exam: normal ENT inspection, moist mucous membranes Neck Exam: normal inspection, non-tender, supple, full range of motion Respiratory Exam: normal breath sounds, lungs clear, No respiratory distress Cardiovascular Exam: regular rate/rhythm, normal heart sounds Gastrointestinal/Abdomen Exam: soft, No tenderness, No mass Back Exam: normal inspection, No CVA tenderness, No vertebral tenderness Extremity Exam: normal inspection, normal range of motion Neurologic Exam: alert, oriented x 3, cooperative, normal mood/affect, sensation nml, No motor deficits Skin Exam: normal color, warm, dry SpO2 Interpretation: normal SpO2: 100 O2 Delivery: Nasal Cannula - Course Nursing assessment & vital signs reviewed: Yes EKG Interpreted by Me: Sinus Tach, Left [place] Deviation, prolonged QT interval, Non-specific ST Changes - Radiology Exams Chest X-ray Interpretation: Interpreted by me, No Pneumonia, Nml Heart Size - CT Exams Chest CT Interpretation: Tele-radiologist Report, Other (pulmonary nodules slightly dilated PA and Thoracic aorta) Abdomen/Pelvis CT Interpretation: Tele-radiologist Report, Other (lung nodules renal cysts ) Ordered Tests: Active Orders 24 hr Category Date Time Status EKG-ER Only STAT Care 06/27/25 18:58 Active IV Insertion STAT Care 06/27/25 18:58 Completed ABDOMEN AND PELVIS W/0 CONTRAS [CT] Stat Exams 06/28/25 00:17 Completed CHEST 1 VIEW (PORTABLE) Stat Exams 06/27/25 18:13 Completed CHEST WITHOUT CONTRAST [CT] Stat Exams 06/27/25 19:11 Completed CBC W DIFF Stat Lab 06/27/25 18:25 Completed CMP Stat Lab 06/27/25 18:25 Completed D-DIMER QUANTITATIVE Stat Lab 06/27/25 18:25 Completed LIPASE Stat Lab 06/27/25 18:25 Completed Lactic Acid Stat Lab 06/27/25 19:23 Completed NT PRO BNPII Stat Lab 06/27/25 18:25 Completed PROTIME WITH INR Stat Lab 06/27/25 18:25 Completed PTT Stat Lab 06/27/25 18:25 Completed TROPONIN Q4H Lab 06/27/25 18:25 Completed TROPONIN Q4H Lab 06/27/25 22:00 Completed TROPONIN Q4H Lab 06/28/25 02:35 Completed UA W/RFX UR CULTURE Stat Lab 06/28/25 04:29 Ordered Medication Summary Generic Name Dose Route Start Last Admin Trade Name Marielle PRN Reason Stop Dose Admin Metoprolol Tartrate 5 mg 06/27/25 18:13 Metoprolol Tartrate 5 Mg/5 Ml Vial IV 07/27/25 18:12 Q5MIN PRN MR X 3 PRN HR>100 Discontinued Medications Generic Name Dose Route Start Last Admin Trade Name Freq PRN Reason Stop Dose Admin Aspirin 324 mg 06/27/25 18:13 06/27/25 18:33 Aspirin 81 Mg Tab.Chew PO 06/27/25 18:14 324 mg STAT ONE Administration Aspirin Confirm 06/27/25 18:30 Aspirin 81 Mg Tab.Chew Administered 06/27/25 18:31 Dose 324 mg .ROUTE .STK-MED ONE Sodium Chloride 1,000 mls @ 999 mls/hr 06/27/25 18:13 06/27/25 19:42 Sodium Chloride 0.9% 1000 Ml IV 06/27/25 19:13 Infused .Q1H1M STA Infusion Sodium Chloride Confirm 06/27/25 18:30 Sodium Chloride 0.9% 1000 Ml Administered 06/27/25 18:31 Dose 1,000 mls @ ud .ROUTE .STK-MED ONE Sodium Chloride 1,000 mls @ 999 mls/hr 06/28/25 04:43 06/28/25 05:53 Sodium Chloride 0.9% 1000 Ml IV 06/28/25 05:43 Infused .Q1H1M STA Infusion Sodium Chloride Confirm 06/28/25 04:48 Sodium Chloride 0.9% 1000 Ml Administered 06/28/25 04:49 Dose 1,000 mls @ ud .ROUTE .STK-MED ONE Lab/Rad Data: Laboratory Result Diagrams 06/27/25 18:25 06/27/25 18:25 Laboratory Results 06/28/25 06/27/25 06/27/25 Range/Units 02:35 22:00 19:23 WBC (3.98-10.04) x10^3/uL RBC (3.93-5.22) x10^6/uL Hgb (11.2-15.7) g/dL Hct (34.1-44.9) % MCV (79.4-94.8) fL MCH (25.6-32.2) pg MCHC (32.2-35.5) g/dL RDW (11.7-14.4) % Plt Count (182-369) x10^3/uL MPV (9.4-12.3) fL Gran % (34.0-71.1) % Immature Gran % (Auto) (0.001-0.429) % Nucleat RBC Rel Count (0.00-0.2) % Eos # (Auto) (0.04-0.36) x10^3/uL Immature Gran # (Auto) (0.001-0.031) x10^3u/L Absolute Lymphs (auto) (1.18-3.74) x10^3/uL Absolute Monos (auto) (0.24-0.86) x10^3/uL Absolute Nucleated RBC (0.00-0.012) x10^3u/L Lymphocytes % (19.3-51.7) % Monocytes % (4.7-12.5) % Eosinophils % (0.7-5.8) % Basophils % (0.1-1.2) % Absolute Granulocytes (1.56-6.13) x10^3/uL Basophils # (0.01-0.08) x10^3/uL PT (9.4-12.5) SECONDS INR (0.8-3.0) APTT (25.1-36.5) SECONDS D-Dimer (0.0-0.50) mg/L Sodium (135-145) mmol/L Potassium (3.5-5.1) mmol/L Chloride (98-107) mmol/L Carbon Dioxide (22-30) mmol/L Anion Gap (5-15) MEQ/L BUN (7-17) mg/dL Creatinine (0.52-1.04) mg/dL Estimated GFR ML/MIN Glucose (74-106) mg/dL Lactic Acid 1.0 (0.4-2.0) Calcium (8.4-10.2) mg/dL Total Bilirubin (0.2-1.3) mg/dL AST (14-36) U/L ALT (0-35) U/L Alkaline Phosphatase (38-126) U/L Troponin I < 0.012 < 0.012 (0.000-0.033) ng/mL NT-Pro-B Natriuret Pep (<300) pg/mL Serum Total Protein (6.3-8.2) g/dL Albumin (3.5-5.0) g/dL Lipase (23-300) U/L 06/27/25 06/27/25 06/27/25 Range/Units 18:25 18:25 18:25 WBC (3.98-10.04) x10^3/uL RBC (3.93-5.22) x10^6/uL Hgb (11.2-15.7) g/dL Hct (34.1-44.9) % MCV (79.4-94.8) fL MCH (25.6-32.2) pg MCHC (32.2-35.5) g/dL RDW (11.7-14.4) % Plt Count (182-369) x10^3/uL MPV (9.4-12.3) fL Gran % (34.0-71.1) % Immature Gran % (Auto) (0.001-0.429) % Nucleat RBC Rel Count (0.00-0.2) % Eos # (Auto) (0.04-0.36) x10^3/uL Immature Gran # (Auto) (0.001-0.031) x10^3u/L Absolute Lymphs (auto) (1.18-3.74) x10^3/uL Absolute Monos (auto) (0.24-0.86) x10^3/uL Absolute Nucleated RBC (0.00-0.012) x10^3u/L Lymphocytes % (19.3-51.7) % Monocytes % (4.7-12.5) % Eosinophils % (0.7-5.8) % Basophils % (0.1-1.2) % Absolute Granulocytes (1.56-6.13) x10^3/uL Basophils # (0.01-0.08) x10^3/uL PT 10.3 (9.4-12.5) SECONDS INR 0.94 (0.8-3.0) APTT 29.8 (25.1-36.5) SECONDS D-Dimer 0.44 (0.0-0.50) mg/L Sodium (135-145) mmol/L Potassium (3.5-5.1) mmol/L Chloride (98-107) mmol/L Carbon Dioxide (22-30) mmol/L Anion Gap (5-15) MEQ/L BUN (7-17) mg/dL Creatinine (0.52-1.04) mg/dL Estimated GFR ML/MIN Glucose (74-106) mg/dL Lactic Acid (0.4-2.0) Calcium (8.4-10.2) mg/dL Total Bilirubin (0.2-1.3) mg/dL AST (14-36) U/L ALT (0-35) U/L Alkaline Phosphatase (38-126) U/L Troponin I < 0.012 (0.000-0.033) ng/mL NT-Pro-B Natriuret Pep 362 (<300) pg/mL Serum Total Protein (6.3-8.2) g/dL Albumin (3.5-5.0) g/dL Lipase 73 (23-300) U/L 06/27/25 06/27/25 Range/Units 18:25 18:25 WBC 8.4 (3.98-10.04) x10^3/uL RBC 4.83 (3.93-5.22) x10^6/uL Hgb 13.0 (11.2-15.7) g/dL Hct 40.6 (34.1-44.9) % MCV 84.1 (79.4-94.8) fL MCH 26.9 (25.6-32.2) pg MCHC 32.0 L (32.2-35.5) g/dL RDW 15.7 H (11.7-14.4) % Plt Count 298 (182-369) x10^3/uL MPV 10.3 (9.4-12.3) fL Gran % 69.7 (34.0-71.1) % Immature Gran % (Auto) 0.4 (0.001-0.429) % Nucleat RBC Rel Count 0.0 (0.00-0.2) % Eos # (Auto) 0.12 (0.04-0.36) x10^3/uL Immature Gran # (Auto) 0.03 (0.001-0.031) x10^3u/L Absolute Lymphs (auto) 1.84 (1.18-3.74) x10^3/uL Absolute Monos (auto) 0.50 (0.24-0.86) x10^3/uL Absolute Nucleated RBC 0.00 (0.00-0.012) x10^3u/L Lymphocytes % 22.0 (19.3-51.7) % Monocytes % 6.0 (4.7-12.5) % Eosinophils % 1.4 (0.7-5.8) % Basophils % 0.5 (0.1-1.2) % Absolute Granulocytes 5.83 (1.56-6.13) x10^3/uL Basophils # 0.04 (0.01-0.08) x10^3/uL PT (9.4-12.5) SECONDS INR (0.8-3.0) APTT (25.1-36.5) SECONDS D-Dimer (0.0-0.50) mg/L Sodium 141 (135-145) mmol/L Potassium 4.5 (3.5-5.1) mmol/L Chloride 106 (98-107) mmol/L Carbon Dioxide 24 (22-30) mmol/L Anion Gap 15.0 (5-15) MEQ/L BUN 26 H (7-17) mg/dL Creatinine 1.52 H (0.52-1.04) mg/dL Estimated GFR 37.4 ML/MIN Glucose 130 H (74-106) mg/dL Lactic Acid (0.4-2.0) Calcium 8.5 (8.4-10.2) mg/dL Total Bilirubin 0.40 (0.2-1.3) mg/dL AST 29 (14-36) U/L ALT 24 (0-35) U/L Alkaline Phosphatase 76 (38-126) U/L Troponin I (0.000-0.033) ng/mL NT-Pro-B Natriuret Pep (<300) pg/mL Serum Total Protein 7.5 (6.3-8.2) g/dL Albumin 4.5 (3.5-5.0) g/dL Lipase (23-300) U/L - Progress Progress: improved, re-examined Air Movement: good Progress Note: 06/28/25 03:55 contacting the hospitalist to consult for potential admission for syncope and tachycardia. 06/28/25 04:38 Hospitalist states that due to high risk of this pt we must rule out PE and is worth the risk at this GFR in 30s. Discussed the risks and benefits with the pt and family and they do not wish to take the risk of further renal damage with the dye ( both radiology and myself are willing to conduct the PE protocol CTA with the pts consent). They are aware that she could have a PE with risks including . They have the capacity to make this choice. We are trying to contact to arrange a VQ scan. THis is not available in either until Sunday. We are checking [facility] in [place]. 06/28/25 05:29 none of the hospitals have VQ over the weekend. I have discussed again with our hospitalist and he is not comfortable with admission without ruling out a PE, but we cannot since the pt and family do not wish the dye test. We will try with other hospitals. 06/28/25 06:07 THe patient's care is being assumed by Dr. Woodson at change of shift after discussion of the situation and pending consults for placement due to her tachycardia and hx of syncope, and pending the bed as accepted by Dr. Connolly at [facility]. . 06/28/25 06:34 Dr. Connolly the Hospitalist at [facility] has accepted the pt and they are looking for a bed, so we must hold in ER pending that bed. Blood Culture(s) Obtained: No Antibiotics given: No Counseled pt/family regarding: lab results, diagnosis, need for follow-up, rad results Medical Desision Making - Independent Historian Additional History obtained from: Spouse - Discussion of managment Reviewed:: Test results, Need for additional workup Agreed on:: Treatment plan, need for follow-up - Diagnostic Testing Diagnostic test were ordered, analyzed, and reviewed by me: Yes Radiological Interpretation: Interpreted by me, Teleradiologist Report - Risk of complications The pt has a mod risk of morbidity or mortality based on: Need for prescription drug management The pt has a high risk of morbidity or mortality based on: Decision regarding hospitilization or escalation of hosp level of care - Departure Departure Disposition: Transfer Critical Care Time: No
[2025-06-27 18:26] VITALS: TEMP 96.4
[2025-06-27 18:27] LABS: BASOPHIL % 0.5 % (0.1-1.2); Basophil (Absolute #) 0.04 x10^3/uL (0.01-0.08); Eosinophil (Absolute #) 0.12 x10^3/uL (0.04-0.36); Hematocrit 40.6 % (34.1-44.9); Hemoglobin 13.0 g/dL (11.2-15.7); IMMATURE GRAN # 0.03 x10^3u/L (0.001-0.031); IMMATURE GRAN % 0.4 % (0.001-0.429); Lymphocyte (Absolute #) 1.84 x10^3/uL (1.18-3.74); Mean Corpuscular Hemoglobin 26.9 pg (25.6-32.2); Mean Corpuscular Hgb Concent. 32.0 g/dL (32.2-35.5); Monocyte (Absolute #) 0.50 x10^3/uL (0.24-0.86); NUCLEATED RBC # 0.00 x10^3u/L (0.00-0.012); NUCLEATED RBC % 0.0 % (0.00-0.2); Platelet Count 298 x10^3/uL (182-369); Red Blood Count 4.83 x10^6/uL (3.93-5.22); White Blood Count 8.4 x10^3/uL (3.98-10.04)
[2025-06-27] MEDS ORDERED: LOPRESSOR INJECTION IV ONE (18:30)
[2025-06-27] MEDS ORDERED: BABY ASPIRIN 81 MG CHEW ONE (18:30)
[2025-06-27] MEDS: BABY ASPIRIN 81 MG CHEW PO ONE (18:33)
[2025-06-27] MEDS: LOPRESSOR INJECTION IV PRN (18:33)
[2025-06-27 18:42] LABS: Calcium 8.5 mg/dL (8.4-10.2); Carbon Dioxide 24.0 mmol/L (22-30); Creatinine 1 1.52 mg/dL (0.52-1.04); EST GLOMERULAR FILTRATION RATE 37.4 ML/MIN; Glucose 130.0 mg/dL (74-106); Potassium 4.5 mmol/L (3.5-5.1); SGOT/AST 29.0 U/L (14-36); SGPT/ALT 24.0 U/L (0-35); Total Protein 7.5 g/dL (6.3-8.2)
[2025-06-27 18:44] LABS: INR 0.94 (0.8-3.0); PROTIME 10.3 SECONDS (9.4-12.5); PTT 29.8 SECONDS (25.1-36.5)
[2025-06-27 18:54] LABS: NT PRO BNPII 362 pg/mL (<300); TROPONIN < 0.012 ng/mL (0.000-0.033)
--- NOTE | 2025-06-27 20:31 | XRAY ---
Indication: Chest pain. Comparison: July 17, 2021 Portable chest inflated and remains clear. Heart not enlarged. Bony thorax intact again with osteopenia and mild degenerative changes. No new/acute findings.
--- NOTE | 2025-06-27 21:17 | XRAY ---
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 TECHNIQUE: Contiguous axial CT images of the chest were acquired without the administration of intravenous contrast. Coronal and sagittal reconstructions were obtained. One of the following dose reduction techniques was utilized for this exam: automated exposure control, adjustment of the mA and/or kV according to patient size, or use of iterative reconstruction. FINDINGS: Lungs: Right lower lobe 7 mm nodule with a calcified focus, with two adjacent solid nodules measuring 5.6 mm and 4.4 mm. These are unchanged. The lung parenchyma is clear, with no evidence of consolidation, collapse, or focal lesions. No masses are identified. There is no evidence of interstitial lung disease or emphysema. There is no pleural effusion or pleural thickening. Mediastinum: Right pericardiac 10 mm nodule, most likely a lymph node. The ascending thoracic aorta is mildly dilated, measuring 4 x 3.5 cm. The main pulmonary artery is mildly dilated, measuring 32 mm, which may indicate pulmonary hypertension. Clinical evaluation is advised. The mediastinum is normal in size and contour. There is no mediastinal mass or abnormal lymphadenopathy. Cardiomegaly is present. Hilar Structures: Right hilar calcified lymph nodes are present. There are no atheromatous calcifications of the aorta or coronary arteries. Trachea and Main Bronchi: The trachea and main bronchi are patent, without evidence of obstruction or abnormality. Chest Wall: The chest wall is unremarkable, with no evidence of soft tissue or bony abnormalities. Upper Abdomen: Multiple tiny calcified splenic granulomas are present. Status post cholecystectomy. Bones: Straightening of thoracic kyphosis, which may indicate displacement. The visualized osseous structures are normal, with no evidence of fracture or lytic/sclerotic lesions. IMPRESSION: 1. No acute CT signs of chest pathology. 2. No interval changes. Electronically Signed by: Prabhjot Webster MD. (06/27/2025 21:16:04 EDT)
--- NOTE | 2025-06-28 01:58 | XRAY ---
CLINICAL HISTORY: syncope with pain COMPARISON: 11/26/2023 CT. TECHNIQUE: Non-contrast CT of the abdomen and pelvis was performed using the following protocol: axial images and reconstructed coronal and sagittal images. No intravenous contrast was administered. One of the following dose reduction techniques was utilized for this exam: automated exposure control, adjustment of the mA and/or kV according to patient size, and use of iterative reconstruction. FINDINGS: Abdomen: Liver: The liver is enlarged, measuring 22 cm. No focal lesions are seen. No dilated intrahepatic biliary radicles are identified. Gallbladder and Biliary System: The gallbladder has been surgically removed, with cholecystectomy clips noted. Pancreas: The pancreatic head, body, and tail are visualized and appear normal in size and density. No pancreatic masses or calcifications are noted. Spleen: The spleen is normal in size, with multiple foci of calcification suggestive of an old granuloma. Kidneys and Adrenal Glands: There is a left kidney upper zone cortical cyst measuring approximately 2.3 x 2.3 cm with small marginal calcification. There is a small exophytic cyst in the left lower zone, measuring approximately 1.2 x 1.2 cm. A small cyst in the right upper pole measures 1.3 cm. No stones or hydronephrosis are seen. The adrenal glands are unremarkable. Appendix: The appendix is normal in size, without neo-appendiceal fat stranding and without an appendicolith. No evidence of appendiceal abscess or perforation is seen. Pelvis: Urinary bladder: The bladder is normal in contour and wall thickness. No intraluminal lesions are identified. Uterus: The uterus is normal in size and contour. No masses or abnormal thickening are seen. Ovaries: The ovaries are not well visualized, but no gross abnormalities are noted. Vagina: The vagina is normal in contour and wall thickness. Cervix: There is no evidence of mass or abnormal thickening. Peritoneal and Retroperitoneal Structures: No free fluid or abnormal fluid collections are identified within the abdomen or pelvis. No lymphadenopathy is noted. Bowel: The visualized bowel loops are normal in caliber and appearance. No evidence of bowel obstruction or wall thickening is seen. Bones and Soft Tissues: Spondylodegenerative changes of the lumbar spine are present. Aortic atherosclerotic calcification is noted. Calcified right hilar lymph nodes are present, suggestive of an old granuloma. There is a right lower lobe 7 mm nodule with a calcified focus and two adjacent solid nodules measuring 5.6 mm and 4.4 mm. These are unchanged. A few sigmoid diverticula are noted. IMPRESSION: 1. No acute abdominal or pelvic pathology. 2. Hepatomegaly. 3. Multiple foci of calcification are seen in the spleen, suggestive of an old granuloma. 4. Left renal cysts; would recommend an ultrasound for further evaluation if clinically warranted. 5. A few non-complicated sigmoid diverticula are present. 6. Calcified right hilar lymph nodes are seen. Peripheral nodularity with right lower lobe 7 mm nodule with a calcified focus and two adjacent solid nodules measuring 5.6 mm and 4.4 mm. These are unchanged. 7. No interval changes since the last study. Electronically Signed by: Prabhjot Webster MD. (06/28/2025 01:56:13 EDT)
[2025-06-28 10:45] LABS: Glucose, Urine Negative (Negative); Protein,Urine Dip Negative (Negative); RBC 0-2 /HPF (0-5)
[2025-06-28] MEDS ORDERED: TYLENOL 325 MG ONE (11:18)
[2025-06-28] MEDS: TYLENOL 325 MG PO STA (11:19)
[2025-06-28 14:51] VITALS: BP 117/88; PULSE 133; RESP 21; O2SAT 99
== END 2025-06-28 14:49 | disposition short-term general hospital (02) ==
LOC: ED 18:06
DX: R00.2 Palpitations (principal); R07.9 Chest pain, unspecified; R91.8 Other nonspecific abnormal finding of lung field; R55 Syncope and collapse; R00.0 Tachycardia, unspecified; I10 Essential (primary) hypertension; E11.9 Type 2 diabetes mellitus without complications; Z79.84 Long term (current) use of oral hypoglycemic drugs; Z79.899 Other long term (current) drug therapy